=== PATIENT | female | born 1970 | race Caucasian/White ===

== ENCOUNTER → 2017-11-10 | Outpatient (CLI) | payer BC, OTHER | LOC: M LRY 10:02 | DX: R05 Cough (principal) | CPT/HCPCS: 71020 ==

== ENCOUNTER → 2018-06-06 | Outpatient (CLI) | payer OTHER, BC ==
[~2018-06-06] MED LIST: GASTROGRAFIN SOLUTION 30ML (Q9963) As Ordered; ISOVUE-370 76% 100ML VIAL (Q9967) As Ordered
== END ==
LOC: M RAD 14:21
DX: M89.9 Disorder of bone, unspecified (principal); K80.00 Calculus of gallbladder with acute cholecystitis without obstruction
CPT/HCPCS: Q9963

== ENCOUNTER → 2018-07-01 | Outpatient (CLI) | payer BC, OTHER ==
[~2018-07-01] MED LIST changes: -GASTROGRAFIN SOLUTION 30ML (Q9963) As Ordered; -ISOVUE-370 76% 100ML VIAL (Q9967) As Ordered; +PROHANCE 279.3MG/ML 15ML VIAL (A9576) As Ordered; +PROHANCE 279.3MG/ML 5ML VIAL (A9576) As Ordered
== END ==
LOC: M RAD 14:38
DX: K80.20 Calculus of gallbladder without cholecystitis without obstruction (principal); K86.1 Other chronic pancreatitis
CPT/HCPCS: A9576

== ENCOUNTER 2018-08-16 07:21 | Day surgery (SDC) | payer BC, OTHER ==
[~2018-08-16 07:21] MED LIST changes: +BUPIVACAINE HCL 0.25% 30 ML VIAL As Ordered; -PROHANCE 279.3MG/ML 15ML VIAL (A9576) As Ordered; -PROHANCE 279.3MG/ML 5ML VIAL (A9576) As Ordered
[2018-08-16 08:03] LABS: BEDSIDE GLUCOSE 113 MG/DL (70-105)
[2018-08-16] MEDS ORDERED: ONDANSETRON 4MG/2ML VIAL (J2405) As Ordered (08:09)
[2018-08-16] MEDS ORDERED: LIDOCAINE 2% INJ 100 MG/5 ML SDV (FOR ANES.) As Ordered (08:09)
[2018-08-16] MEDS ORDERED: GLYCOPYRROLATE INJ 0.2 MG/ML 2 ML VIAL As Ordered (08:09)
[2018-08-16] MEDS ORDERED: dexameTHASONE 4 MG/ML 1ML VIAL (J1100) As Ordered (08:09)
[2018-08-16] MEDS ORDERED: NEOSTIGMINE 10 MG/10 ML VIAL (J2710) As Ordered (08:09)
[2018-08-16] MEDS ORDERED: ROCURONIUM BROMIDE 50 MG/5 ML VIAL As Ordered (08:09)
[2018-08-16] MEDS ORDERED: PROPOFOL 200 MG/20 ML VIAL As Ordered (08:09)
[2018-08-16] MEDS ORDERED: KETOROLAC 60 MG/2 ML VIAL (J1885) As Ordered (08:09)
[2018-08-16] MEDS ORDERED: fentaNYL 100 MCG/2 ML INJECTION (J3010) As Ordered (08:10)
[2018-08-16] MEDS ORDERED: MIDAZOLAM INJ 2 MG/2 ML VIAL (J2250) As Ordered (08:11)
[2018-08-16] MEDS: LR 1,000 ML IV (08:19)
[2018-08-16] MEDS ORDERED: SCOPOLAMINE 1MG TRANSDERMAL PATCH As Ordered (09:12)
[2018-08-16] MEDS: SCOPOLAMINE 1MG TRANSDERMAL PATCH TOP (09:13)
[2018-08-16] MEDS: AMPICILLIN SOD/SULBACTAM SOD 3 GM in D5W MINI-BAG PLUS 100 ML IV (09:19)
[2018-08-16] MEDS ORDERED: PHENYLephrine HCL 500 MCG/5 ML (100MCG/ML) SYRINGE (J2370) As Ordered (10:06)
[2018-08-16] MEDS ORDERED: SUGAMMADEX SODIUM 500 MG/5 ML VIAL (BRIDION) As Ordered (10:27)
[2018-08-16] MEDS: LIDOCAINE 1% SDV INJ 30 ML VIAL As Ordered (10:30)
[2018-08-16] MEDS ORDERED: MORPHINE 10 MG/ML 1ML VIAL (J2270) IV (11:00)
[2018-08-16] MEDS ORDERED: NORCO, ANEXSIA 5/325MG TABLET (HYDROcodone/ACETAMINOPHEN) PO (11:00)
[2018-08-16] MEDS ORDERED: ONDANSETRON 4MG/2ML VIAL (J2405) IV ×2 (11:00)
[2018-08-16] MEDS ORDERED: METOCLOPRAMIDE INJ 10MG/2ML VIAL (J2765) IV (11:00)
[2018-08-16] MEDS ORDERED: fentaNYL 100 MCG/2 ML INJECTION (J3010) IV (11:00)
[2018-08-16] MEDS ORDERED: PERCOCET 5MG/325MG TAB PO (11:00)
[2018-08-16] MEDS ORDERED: LR 1,000 ML IV (11:00)
[2018-08-16] MEDS ORDERED: KETOROLAC 30 MG/ML VIAL (J1885) IV (14:00)
== END 2018-08-16 12:15 | disposition home or self-care (01) ==
LOC: M SDC 07:21
DX: K80.20 Calculus of gallbladder without cholecystitis without obstruction (principal); K66.0 Peritoneal adhesions (postprocedural) (postinfection); K86.0 Alcohol-induced chronic pancreatitis; K25.9 Gastric ulcer, unspecified as acute or chronic, without hemorrhage or perforation; K74.60 Unspecified cirrhosis of liver; I10 Essential (primary) hypertension; E11.9 Type 2 diabetes mellitus without complications; K50.90 Crohn's disease, unspecified, without complications; K21.9 Gastro-esophageal reflux disease without esophagitis; Z79.899 Other long term (current) drug therapy; Z79.4 Long term (current) use of insulin; Z85.828 Personal history of other malignant neoplasm of skin; Z85.850 Personal history of malignant neoplasm of thyroid; Z90.710 Acquired absence of both cervix and uterus; Z96.612 Presence of left artificial shoulder joint
CPT/HCPCS: 49320

== ENCOUNTER → 2018-10-23 | Outpatient (CLI) | payer BC, OTHER | LOC: M WHC 07:49 | DX: M85.871 Other specified disorders of bone density and structure, right ankle and foot (principal) | CPT/HCPCS: 77080 ==

== ENCOUNTER → 2018-12-20 | Outpatient (REF) | payer OTHER ==
[~2018-12-20] MED LIST changes: +ACET1TAB55 PO; +ACET65TA OR; +BACT2CRE EXT; -BUPIVACAINE HCL 0.25% 30 ML VIAL As Ordered; +CHLO25TA PO; +GLUC1000 OR; +IBUP40TA PO; +INSULANT SC; +LEVO175T2 PO; +LEVO25TA5 PO; +LOSA100T5 PO; +LOSA50TA88 PO; +MAGN250T OR; +METF10004 PO; +MONT10TA2 PO; +MULTIVIT PO; +OMEP20CA3 PO; +PERC5TAB8 OR; +PERC7.5T8 OR; +PRIL20CA OR; +ROCALTROL PO; +SYNT100T OR; +SYNT100T PO; +TUMS500C OR; +VITAMIN D50000 UNT OR; +VITMTA PO
[2018-12-24 01:34] LABS: ANTINUCLEAR ANTIBODIES DIRECT Negative (Negative); Lyme Disease IgG/IgM Antibodie <0.91 ISR (0.00-0.90); Lyme Disease IgM Ab Quantitati <0.80 index (0.00-0.79)
== END ==
LOC: M LABDRAW1 11:06
PROVIDERS: ATTEND Physician Assistant Surgical
DX: M19.071 Primary osteoarthritis, right ankle and foot (principal)

== ENCOUNTER 2020-08-26 22:23 | Inpatient (IN) | payer BC, OTHER ==
[~2020-08-26] VITALS: Ht 172.7 cm; Wt 97.1 kg
[~2020-08-26 22:23] MED LIST changes: -MONT10TA2 PO; +MONT10TA4 PO; +OMEP1CAP73 PO; -OMEP20CA3 PO
[2020-08-26] MEDS ORDERED: METO1TAB7 PO (22:36)
[2020-08-27] VITALS (22 sets, daily range): BP systolic 103–138; BP diastolic 56–73
[2020-08-27] MEDS ORDERED: NS 1,000 ML IV ONE (01:30)
[2020-08-27] MEDS ORDERED: COMBIVENT RESPIMAT 100-20MCG INHALER 4GM INH ONE (01:30)
[2020-08-27 02:14] LABS: BASO # 0.1 10^3/uL (0.0-0.2); BASO % 0.6 % (0.0-1.0); EOS % 0.1 % (0.0-3.0); HEMATOCRIT 28.9 % (36.0-47.0); HEMOGLOBIN 9.3 g/dl (12.0-15.5); LYMPH # 1.1 10^3/uL (1.5-5.0); MEAN CORPUSCULAR HEMOGLOBIN 29.4 pg (27.0-33.0); MEAN CORPUSCULAR HGB CONC 32.2 g/dl (32.0-36.5); MEAN CORPUSCULAR VOLUME 91.5 fl (80.0-96.0); MONO # 0.7 10^3/uL (0.0-0.8); MONO % 5.3 % (0.0-5.0); PLATELET COUNT, AUTOMATED 334 10^3/uL (150-450); RED BLOOD COUNT 3.16 10^6/uL (4.00-5.40); WHITE BLOOD COUNT 12.5 10^3/uL (4.0-10.0)
[2020-08-27 02:17] LABS: VENOUS BASE EXCESS -29.3 (-2.0-2.0); VENOUS HCO3 3.1 MEQ/L (23.0-27.0); VENOUS O2 SATURATION 96.7 % (60.0-80.0); VENOUS PARTIAL PRESSURE CO2 18.1 mmHg (38.0-50.0); VENOUS PARTIAL PRESSURE O2 124.4 mmHg (30.0-50.0); VENOUS PH 6.845 UNITS (7.330-7.430); VENOUS STANDARD HCO3 4.2 MEQ/L; VENOUS TOTAL CO2 3.6 MEQ/L (24.0-28.0)
[2020-08-27 02:56] LABS: ALBUMIN 3.4 GM/DL (3.2-5.2); ALT/SGPT 17 U/L (12-78); BILIRUBIN,DIRECT 0.2 MG/DL (0.0-0.2); BILIRUBIN,TOTAL 0.3 MG/DL (0.2-1.0); BLOOD UREA NITROGEN 124 MG/DL (7-18); CALCIUM LEVEL 6.7 MG/DL (8.5-10.1); CARBON DIOXIDE LEVEL 5 MEQ/L (21-32); CHLORIDE LEVEL 99 MEQ/L (98-107); CK-MB VALUE MASS 4.9 NG/ML (<3.6); CPK CREATINE PHOSPHOKINASE 134 U/L (26-192); GLOMERULAR FILTRATION RATE 3.1 (>51); GLUCOSE, FASTING 141 MG/DL (70-100); MB/CK RELATIVE INDEX 3.66 (< OR =4); NT-PRO BNP 6803 PG/ML (<125); POTASSIUM SERUM 5.5 MEQ/L (3.5-5.1); SODIUM LEVEL 132 MEQ/L (136-145); TROPONIN I < 0.02 NG/ML (< 0.10)
[2020-08-27] MEDS ORDERED: NS 2,730 ML in IV 1 EA IV ONE (03:00)
--- NOTE | 2020-08-27 03:11 | REPVR ---
PROCEDURE INFORMATION: Exam: XR Chest, 1 View Exam date and time: 08/27/2020 2:53 AM Age: 50 years old Clinical indication: Other: Dyspnea/cough; Additional info: Dyspnea/cough, do not wait for covid TECHNIQUE: Imaging protocol: XR of the chest Views: 1 view. COMPARISON: WI CHEST 2 VIEW 11/10/2017 10:09 AM FINDINGS: Lungs: There is decreased inflation of the lungs. There are no interval infiltrates. Pleural space: Unremarkable. No pleural effusion. No pneumothorax. Heart/Mediastinum: The heart and mediastinum are unchanged. Bones/joints: Unremarkable. A prosthetic left shoulder is again noted. IMPRESSION: Essentially stable poor inspiratory chest since 11/10/2017. Electronically signed by: Gamal Madrigal On 08/27/2020 03:10:45 AM
[2020-08-27] MEDS ORDERED: IBUP-1720 PO (04:44)
[2020-08-27] MEDS ORDERED: LOSA100T5 PO (04:44)
[2020-08-27] MEDS ORDERED: PROAAER10 INH (04:44)
[2020-08-27] MEDS ORDERED: METF-877 PO (04:44)
[2020-08-27] MEDS ORDERED: SYNT150T PO (04:44)
[2020-08-27] MEDS ORDERED: SYNT175T2 PO (04:44)
[2020-08-27] MEDS ORDERED: ACET-907 PO (04:44)
[2020-08-27] MEDS ORDERED: DEXTROSE 50% 50 ML SYRINGE IV STA (04:46)
[2020-08-27] MEDS ORDERED: HumuLIN R (REGULAR) INSULIN (NovoLIN R) **100U/ML** PER UNIT IV STA (04:46)
[2020-08-27] MEDS ORDERED: SODIUM BICARBONATE 8.4% INJ 50 ML SYRINGE IV STA ×2 (04:46→10:37)
[2020-08-27] MEDS ORDERED: NS 1,000 ML IV SCH (04:46)
[2020-08-27] MEDS ORDERED: PATIENT COMMENT (04:49)
[2020-08-27] MEDS ORDERED: CALCIUM GLUCONATE 1,000 MG in D5W MINI-BAG PLUS 100 ML IV ONE ×4 (05:00→17:15)
[2020-08-27] MEDS ORDERED: ALBUTEROL 90 MCG/ACT 8GM HFA INHALER INH PRN (05:00)
[2020-08-27] MEDS ORDERED: GLUCAGON INJ 1MG VIAL SC PRN (05:15)
[2020-08-27] MEDS ORDERED: DEXTROSE 50% 50 ML SYRINGE IV PRN (05:15)
[2020-08-27] MEDS ORDERED: GLUCOSE 4GM CHEW TABLET PO PRN (05:15)
--- NOTE | 2020-08-27 05:16 | HPEPDOC ---
General Date of Admission 08/27/20 Date of Service: Aug 27, 2020 Chief Complaint The patient is a 50-year-old female admitted with a reason for visit of SOB. Source: Patient Exam Limitations: No limitations Timing/Duration: Day(s) Severity: Severe Associated Symptoms: Shortness of breath History of Present Illness Patient is 51 years old female with past history of diabetes, hypertension, hypothyroidism presented hospital with nausea, vomiting and diarrhea. Patient stated that around 3 days ago she developed upper respiratory symptoms started as sinusitis, then she developed multiple episodes of diarrhea with nausea and vomiting, unable to keep anything down. She denied any fever, cough with sputum. In ER patient was found to have tachypnea, chest x-ray clear. Blood work perti nent for leukocytosis of 12.5, potassium 5.5, creatinine 13.5, BUN of 124, BNP 6800. Blood gas showed metabolic acidosis with pH of 6.9, bicarbonate 3.1. Home Medications Scheduled Insulin Glargine (Lantus) 1 Units/0.01 Ml Susp, 22 UNITS SC DAILY, (Reported) Levothyroxine Sodium (Synthroid) 150 Mcg Tablet, 150 MCG PO Q2D, (Reported) Levothyroxine Sodium (Synthroid) 175 Mcg Tablet, 175 MCG PO Q2D, (Reported) Losartan/Hydrochlorothiazide (Losartan-Hctz 100-25 mg Tab) 1 Each Tablet, 1 TAB PO DAILY, (Reported) Metformin HCl (Metformin HCl) 1,000 Mg Tablet, 1,000 MG PO BID, (Reported) Metoprolol Succinate (Metoprolol Succinate) 50 Mg Tab.er.24h, 50 MG PO DAILY, (Reported) Multivitamins (Thera M Plus Tablet) 1 Tab Tab, 1 TAB PO DAILY, (Reported) Omeprazole (Omeprazole) 20 Mg Cap, 20 MG PO DAILY, (Reported) Scheduled PRN Acetaminophen (Tylenol) 325 Mg Tablet, 650 MG PO Q4H PRN for HEADACHE OR PAIN, (Reported) Albuterol Sulfate (Proair Hfa) 8.5 Gm Hfa.aer.ad, 2 PUFF INH QID PRN for SHORTNESS OF BREATH, (Reported) Ibuprofen (Ibuprofen) 200 Mg Tablet, 400 MG PO Q6H PRN for HEADACHE OR PAIN, (Reported) Miscellaneous Medications [Patient Comment] , (Reported) PATIENT UNSURE OF WHICH SYNTHROID WAS LAST TAKEN Allergies Coded Allergies: No Known Allergies (Verified , 08/16/18) Past Medical History Medical History Diabetes mellitus type 2 Hypertension GERD Hypothyroidism status post thyroidectomy Seasonal allergies with possibly undiagnosed asthma Surgical History Thyroidectomy in 2012 Appendectomy Left shoulder replacement Right knee ligamentous repair surgery Left knee arthroscopic surgery Family History Her sister diagnosed with breast cancer Social History * Smoker: Denies Alcohol: Denies Drugs: denies A-FIB/CHADSVASC A-FIB History Current/History of A-Fib/PAF?: No Current PO Anticoag Therapy: No Review of Systems Constitutional: Reports: Malaise; Denies: Chills, Fever Eyes: Denies: Pain Skin: Denies: Rash, Lesions Pulmonary: Reports: Dyspnea Cardiovascular: Denies: Chest Pain, Palpitations Gastrointestinal: Reports: Nausea, Vomiting Genitourinary: Denies: Hematuria Hematologic: Denies: Bruising Endocrine: Denies: Polydipsia, Polyphagia Musculoskeletal: Denies: Neck Pain, Back Pain Neurological: Denies: Weakness Psych: Reports: Mood Normal Physical Examination General Exam: Positive: Alert, Cooperative Eye Exam: Positive: PERRLA ENT Exam: Positive: Atraumatic Neck Exam: Positive: Supple, JVD Chest Exam: Positive: Rhonchi Heart Exam: Positive: Tachycardic Telemetry: Positive: Sinus Abdomen Exam: Positive: BS Hyperactive; Negative: Normal bowel sounds Extremity Exam: Negative: Cyanosis Skin Exam: Positive: Nl turgor and temperature Neuro Exam: Positive: Strength at 5/5 X4 ext, Cranial Nerves 3-12 NL Psych Exam: Positive: Mental status NL Vital Signs Vital Signs Date Time Temp Pulse Resp B/P (MAP) Pulse Ox O2 Delivery O2 Flow Rate FiO2 08/27/20 03:38 105 26 100 Room Air 08/27/20 03:21 143/88 (106) 08/26/20 22:24 97.6 Laboratory Data Labs 24H Laboratory Tests 2 08/27/20 02:06: Immature Granulocyte % (Auto) 5.0H, Neutrophils (%) (Auto) 80.0H, Lymphocytes (%) (Auto) 9.0L, Monocytes (%) (Auto) 5.3H, Eosinophils (%) (Auto) 0.1, Basophils (%) (Auto) 0.6, Neutrophils # (Auto) 10.0H, Lymphocytes # (Auto) 1.1L, Monocytes # (Auto) 0.7, Eosinophils # (Auto) 0.0, Basophils # (Auto) 0.1, Nucleated Red Blood Cells % (auto) 0.2H, Blood Gas Bicarbonate Standard 4.2, Venous Blood pH 6.845L, Venous Blood Partial Pressure CO2 18.1L, Venous Blood Partial Pressure O2 124.4H, Venous Blood Total Carbon Dioxide 3.6L, Venous Blood HCO3 3.1L, Venous Blood Oxygen Saturation 96.7H, Venous Blood Base Excess - 29.3L, Anion Gap 28H, Glomerular Filtration Rate 3.1L, Lactic Acid Level 1.9, Calcium Level 6.7L, Total Bilirubin 0.3, Direct Bilirubin 0.2, Aspartate Amino Transf (AST/SGOT) 26, Alanine Aminotransferase (ALT/SGPT) 17, Alkaline Phosphatase 110, Total Creatine Kinase 134, Creatine Kinase MB 4.9H, Creatine Kinase MB Relative Index 3.66, Troponin I < 0.02, KC-Oxy-E-Type Natriuretic Peptide 6803H, Total Protein 8.0, Albumin 3.4, Albumin/Globulin Ratio 0.7L 08/27/20 03:31: POC pH (Misc Panel) 6.953*L, POC Base Excess (Misc Panel) -29.0L, POC Saturated Percent O2 (Misc) 97, POC pO2 (Misc Panel) 142.0H, POC pCO2 (Misc Panel) 12.8*L, POC HCO3 (Misc Panel) 2.8L, POC Total CO2 (Misc Panel) < 5.0L CBC/BMP Laboratory Tests 08/27/20 02:06 Microbiology Microbiology 08/27/20 Respiratory Virus Panel (PCR) (MIRANDA) - Final, Complete 08/27/20 Blood Culture, Received Pending Assessment/Plan Patient is 51 years old female with past history of diabetes, hypertension, hypothyroidism presented hospital with nausea, vomiting and diarrhea. Patient stated that around 3 days ago she developed upper respiratory symptoms started as sinusitis, then she developed multiple episodes of diarrhea with nausea and vomiting, unable to keep anything down. She denied any fever, cough with sputum. In ER patient was found to have tachypnea, chest x-ray clear. Blood work pertinent for leukocytosis of 12.5, potassium 5.5, creatinine 13.5, BUN of 124, BNP 6800. Blood gas showed metabolic acidosis with pH of 6.9, bicarbonate 3.1. Problems (1) Metabolic acidosis Status: Acute Problem Text: Secondary to kidney failure Combined NAGMA and HAGMA Bicarbonate Continue to monitor ABG BMP every 4 hours IV hydration (2) Acute renal failure Status: Acute Problem Text: Most likely secondary to severe dehydration due to vomiting and diarrhea Continue to monitor IV fluid Appreciate/agree with associate creative director consult (3) Hyperkalemia Status: Acute Problem Text: Calcium gluconate IV insulin and D50 Continue to monitor BMP (4) Diabetes mellitus type 2 in obese Status: Chronic Problem Text: Diabetes diet Insulin sliding scale Detemir twice a day (5) Hypertension Status: Chronic Problem Text: Continue home cardioprotective medication Plan / VTE VTE Prophylaxis Ordered?: Yes IVONNE CASTLE DO Aug 27, 2020 05:16
[2020-08-27 05:34] LABS: ACETONE/KETONE > 46.00 MG/DL (<2.81)
[2020-08-27] MEDS ORDERED: CALCIUM GLUCONATE 1,000MG/10ML VIAL (100MG/ML) (J0610) As Ordered ONE (05:38)
[2020-08-27] MEDS ORDERED: DEXTROSE 50% 50 ML SYRINGE As Ordered ONE (05:38)
[2020-08-27] MEDS ORDERED: SODIUM BICARBONATE 8.4% INJ 50 ML SYRINGE As Ordered ONE (05:38)
[2020-08-27] MEDS ORDERED: HumuLIN R (REGULAR) INSULIN (NovoLIN R) **100U/ML** PER UNIT As Ordered ONE (05:39)
[2020-08-27 06:13] LABS: ABG BASE EXCESS -25.6 (-2.0-2.0); ABG HCO3 3.6 MEQ/L (22.0-26.0); ABG O2 SATURATION 98.6 % (95.0-99.0); ABG PARTIAL PRESSURE O2 147.6 mmHg (75.0-100.0); ABG STANDARD HCO3 5.6 MEQ/L (22.0-26.0)
[2020-08-27 06:17] LABS: ABG pH (ARTERIAL) 7.002 UNITS (7.350-7.450)
[2020-08-27 06:18] LABS: ABG PARTIAL PRESSURE CO2 14.7 mmHg (35.0-45.0)
[2020-08-27 06:21] LABS: CALCIUM LEVEL 6.2 MG/DL (8.5-10.1); CREATININE FOR GFR 13.2 MG/DL (0.55-1.30); GLOMERULAR FILTRATION RATE 3.2 (>51); POTASSIUM SERUM 5.6 MEQ/L (3.5-5.1)
[2020-08-27] MEDS: ACETAMINOPHEN TAB 650MG DOSE (2X325MG) PO PRN (08:53)
[2020-08-27] MEDS: OMEPRAZOLE 20 MG CAP PO SCH (08:53)
[2020-08-27] MEDS: METOPROLOL SUCC (TopROL XL) 50MG **XL** TAB PO SCH (08:54)
[2020-08-27] MEDS: LEVOTHYROXINE 150MCG TABLET (0.15MG) PO SCH (08:55)
[2020-08-27] MEDS: HumaLOG INSULIN (NovoLOG) PER UNIT SC SCH ×4 (08:55→20:00)
[2020-08-27] MEDS: LEVEMIR (INSULIN DETEMIR) 1 UNITS/0.01ML SC SCH (08:56)
[2020-08-27] MEDS: HEPARIN SOD (PORCINE) 5000UNITS/ML 1ML VIAL/SYRINGE SC SCH ×2 (08:56→20:04)
--- NOTE | 2020-08-27 08:57 | REPVR ---
PROCEDURE INFORMATION: Exam: US Retroperitoneal; Complete; Kidneys and Bladder Exam date and time: 08/27/2020 8:40 AM Age: 50 years old Clinical indication: Condition or disease; Other: Fer TECHNIQUE: Imaging protocol: Real-time ultrasound of the retroperitoneum with image documentation. Complete exam focused on the kidneys and bladder. COMPARISON: CT ABD/PEL W/IV ORAL CONTRAS 06/06/2018 3:52 PM FINDINGS: Right kidney: Right kidney measures 12.3 x 6.3 x 6.3 cm and demonstrates increased parenchymal echogenicity. Mild caliectasis versus hypoechoic medullary pyramids accentuated by the echogenic cortex. No significant hydronephrosis. No calculi or mass. Left kidney: Left kidney measures 10.7 x 5.9 x 6.6 cm and demonstrates increased parenchymal echogenicity. Mild caliectasis versus hypoechoic medullary pyramids accentuated by the echogenic cortex. No significant hydronephrosis. No calculi or mass. Bladder: Urinary bladder is decompressed by a Winslow catheter. IMPRESSION: Bilateral echogenic kidneys, consistent with medical-renal disease. Mild bilateral caliectasis versus hypoechoic medullary pyramids accentuated by the echogenic cortex. No significant hydronephrosis. Electronically signed by: Quentin Hernandez On 08/27/2020 08:57:25 AM
[2020-08-27] MEDS ORDERED: SODIUM BICARBONATE 150 MEQ in STERILE WATER LITER BAG 1,000 ML IV SCH (09:00)
[2020-08-27] MEDS ORDERED: LEVEMIR (INSULIN DETEMIR) 1 UNITS/0.01ML SC SCH (09:00)
[2020-08-27] MEDS ORDERED: ONDANSETRON 4MG/2ML VIAL IV PRN (09:30)
[2020-08-27 10:32] LABS: ABG BASE EXCESS -24.6 (-2.0-2.0); ABG HCO3 4.1 MEQ/L (22.0-26.0); ABG PARTIAL PRESSURE O2 191.7 mmHg (75.0-100.0); ABG STANDARD HCO3 6.2 MEQ/L (22.0-26.0); ABG TOTAL CO2 4.6 MEQ/L (22.0-29.0)
[2020-08-27 10:36] LABS: ABG PARTIAL PRESSURE CO2 15.9 mmHg (35.0-45.0)
[2020-08-27 10:54] LABS: CREATININE FOR GFR 12.4 MG/DL (0.55-1.30); GLOMERULAR FILTRATION RATE 3.4 (>51); POTASSIUM SERUM 4.7 MEQ/L (3.5-5.1)
[2020-08-27 13:26] LABS: CALCIUM LEVEL 5.9 MG/DL (8.5-10.1); CREATININE FOR GFR 11.9 MG/DL (0.55-1.30); GLOMERULAR FILTRATION RATE 3.6 (>51); POTASSIUM SERUM 4.2 MEQ/L (3.5-5.1)
[2020-08-27] MEDS: SODIUM BICARBONATE 150 MEQ in D5W 1,000 ML IV SCH ×3 (13:27→23:30)
[2020-08-27 13:30] LABS: POTASSIUM RANDOM URINE 19.8 MEQ/L; SODIUM,RANDOM URINE 62 MEQ/L
[2020-08-27 13:35] LABS: THYROID STIMULATING HORMONE 0.905 uIU/ML (0.358-3.740)
[2020-08-27] MEDS ORDERED: CALCIUM CHLORIDE 10% 1 GM in D5W 100 ML IV ONE (17:15)
[2020-08-27 17:39] LABS: CALCIUM LEVEL 5.9 MG/DL (8.5-10.1); CREATININE FOR GFR 11.7 MG/DL (0.55-1.30); GLOMERULAR FILTRATION RATE 3.6 (>51); POTASSIUM SERUM 3.6 MEQ/L (3.5-5.1)
[2020-08-27] MEDS ORDERED: KCL 10MEQ/100ML SWI (KRUN) 10 MEQ in IV 1 EA IV ONE ×2 (18:30→22:00)
[2020-08-27 18:59] LABS: PHOSPHORUS LEVEL 10.5 MG/DL (2.5-4.9)
[2020-08-27 21:35] LABS: CALCIUM LEVEL 6.2 MG/DL (8.5-10.1); CREATININE FOR GFR 11.4 MG/DL (0.55-1.30); GLOMERULAR FILTRATION RATE 3.7 (>51); POTASSIUM SERUM 2.8 MEQ/L (3.5-5.1)
[2020-08-27 23:04] LABS: ABG BASE EXCESS -9.3 (-2.0-2.0); ABG HCO3 15.1 MEQ/L (22.0-26.0); ABG O2 SATURATION 97.1 % (95.0-99.0); ABG PARTIAL PRESSURE CO2 26.8 mmHg (35.0-45.0); ABG PARTIAL PRESSURE O2 105.4 mmHg (75.0-100.0); ABG STANDARD HCO3 16.7 MEQ/L (22.0-26.0); ABG TOTAL CO2 15.9 MEQ/L (22.0-29.0); ABG pH (ARTERIAL) 7.369 UNITS (7.350-7.450)
[2020-08-28] VITALS (38 sets, daily range): BP systolic 87–145; BP diastolic 57–98
[2020-08-28 01:30] LABS: CALCIUM LEVEL 6.4 MG/DL (8.5-10.1); CREATININE FOR GFR 11.3 MG/DL (0.55-1.30); GLOMERULAR FILTRATION RATE 3.8 (>51); POTASSIUM SERUM 2.7 MEQ/L (3.5-5.1)
[2020-08-28] MEDS: KCL 10MEQ/100ML SWI (KRUN) 10 MEQ in IV 1 EA IV SCH ×4 (02:23→05:58)
[2020-08-28] MEDS ORDERED: CALCIUM GLUCONATE 1,000 MG in D5W MINI-BAG PLUS 100 ML IV ONE ×3 (03:00→07:00)
[2020-08-28 03:21] LABS: ALBUMIN 2.2 GM/DL (3.2-5.2); MAGNESIUM LEVEL 0.6 MG/DL (1.8-2.4)
[2020-08-28] MEDS: MAG SULF 1GM/100ML (MAG RUN) 1 GM in IV 1 EA IV SCH ×4 (03:56→07:03)
[2020-08-28] MEDS: ACETAMINOPHEN TAB 650MG DOSE (2X325MG) PO PRN ×2 (03:57→20:38)
[2020-08-28 05:03] LABS: MEAN CORPUSCULAR HEMOGLOBIN 29.9 pg (27.0-33.0); PLATELET COUNT, AUTOMATED 183 10^3/uL (150-450); RED BLOOD COUNT 1.94 10^6/uL (4.00-5.40); WHITE BLOOD COUNT 6.3 10^3/uL (4.0-10.0)
[2020-08-28 05:04] LABS: HEMOGLOBIN 5.8 g/dl (12.0-15.5)
[2020-08-28 05:06] LABS: HEMATOCRIT 16.1 % (36.0-47.0)
[2020-08-28] MEDS: LEVOTHYROXINE 25MCG TABLET (0.025MG) PO SCH (05:58)
[2020-08-28] MEDS: LEVOTHYROXINE 150MCG TABLET (0.15MG) PO SCH (05:58)
[2020-08-28] MEDS ORDERED: POTASSIUM CHLORIDE 10 MEQ SR TABLET PO ONE (06:00)
[2020-08-28 06:05] LABS: BASO % 0.3 % (0.0-1.0); EOS # 0.1 10^3/uL (0.0-0.5); LYMPH # 0.9 10^3/uL (1.5-5.0); LYMPH % 15.4 % (24.0-44.0); MONO # 0.5 10^3/uL (0.0-0.8); MONO % 8.8 % (0.0-5.0); NEUTROPHILS # 4.5 10^3/uL (1.5-8.5); NEUTROPHILS % 73.5 % (36.0-66.0)
[2020-08-28 06:30] LABS: ALBUMIN 2.1 GM/DL (3.2-5.2); BILIRUBIN,TOTAL 0.2 MG/DL (0.2-1.0); CALCIUM LEVEL 5.8 MG/DL (8.5-10.1); CREATININE FOR GFR 11.1 MG/DL (0.55-1.30); GLOMERULAR FILTRATION RATE 3.9 (>51); PHOSPHORUS LEVEL 7.4 MG/DL (2.5-4.9); POTASSIUM SERUM 2.9 MEQ/L (3.5-5.1); TOTAL PROTEIN 4.9 GM/DL (6.4-8.2)
[2020-08-28 06:51] LABS: ABG BASE EXCESS -6.9 (-2.0-2.0); ABG HCO3 17.1 MEQ/L (22.0-26.0); ABG O2 SATURATION 94.8 % (95.0-99.0); ABG PARTIAL PRESSURE CO2 27.9 mmHg (35.0-45.0); ABG PARTIAL PRESSURE O2 83.5 mmHg (75.0-100.0); ABG STANDARD HCO3 18.6 MEQ/L (22.0-26.0); ABG pH (ARTERIAL) 7.406 UNITS (7.350-7.450)
[2020-08-28] MEDS: SODIUM BICARBONATE 150 MEQ in D5W 1,000 ML IV SCH ×2 (07:03→13:47)
--- NOTE | 2020-08-28 07:35 | ECGEPIP ---
[facility] - ED Test Date: 2020-08-27 Pat Name: SHARON BRANDON Department: Room: [place] [address] Gender: Female Transfer Table Operator: marlena hanson : 1970 Requested By: CHRIS Camacho Order Number: [id number] Reading MD: Remi Lobo Measurements Intervals [place] Rate: 100 P: 23 OK: 151 QRS: 18 QRSD: 96 T: -6 QT: 365 QTc: 472 Interpretive Statements SINUS TACHYCARDIA NONSPECIFIC T-WAVE ABNORMALITY Baseline artifact Comparison tracing not on file Electronically Signed on 08-28-2020 7:35:26 EDT by Remi Lobo
[2020-08-28 08:28] LABS: IONIZED CALCIUM 3.3 MG/DL (4.5-5.3)
[2020-08-28 08:35] LABS: MEAN CORPUSCULAR HEMOGLOBIN 29.5 pg (27.0-33.0); MEAN CORPUSCULAR HGB CONC 34.7 g/dl (32.0-36.5); MEAN CORPUSCULAR VOLUME 85.2 fl (80.0-96.0); PLATELET COUNT, AUTOMATED 185 10^3/uL (150-450); RED BLOOD COUNT 2.37 10^6/uL (4.00-5.40); WHITE BLOOD COUNT 6.9 10^3/uL (4.0-10.0)
[2020-08-28 08:37] LABS: HEMATOCRIT 20.2 % (36.0-47.0)
[2020-08-28 09:12] LABS: BLOOD UREA NITROGEN 100 MG/DL (7-18); CALCIUM LEVEL 6.6 MG/DL (8.5-10.1); CARBON DIOXIDE LEVEL 18 MEQ/L (21-32); CHLORIDE LEVEL 94 MEQ/L (98-107); GLUCOSE, FASTING 260 MG/DL (70-100); MAGNESIUM LEVEL 1.9 MG/DL (1.8-2.4); POTASSIUM SERUM 2.9 MEQ/L (3.5-5.1); SODIUM LEVEL 132 MEQ/L (136-145)
[2020-08-28] MEDS: LEVEMIR (INSULIN DETEMIR) 1 UNITS/0.01ML SC SCH (10:14)
[2020-08-28] MEDS: HumaLOG INSULIN (NovoLOG) PER UNIT SC SCH ×4 (10:15→21:00)
[2020-08-28] MEDS: OMEPRAZOLE 20 MG CAP PO SCH (10:15)
[2020-08-28] MEDS: METOPROLOL SUCC (TopROL XL) 50MG **XL** TAB PO SCH (10:16)
--- NOTE | 2020-08-28 10:43 | REPVR ---
PROCEDURE INFORMATION: Exam: XR Chest, 1 View Exam date and time: 08/28/2020 10:24 AM Age: 50 years old Clinical indication: Device placement; Other: Dialysis catheter; Additional info: Line placement TECHNIQUE: Imaging protocol: XR of the chest Views: 1 view. COMPARISON: CR PORTABLE CHEST X-RAY 08/27/2020 2:35 AM FINDINGS: Tubes, catheters and devices: A right IJ line has been placed with its tip in the region of the right atrium, approximately 2 cm beyond the expected level of the cavoatrial junction. Lungs: There is moderate new diffuse bilateral interstitial prominence, suggesting edema with bibasilar atelectasis and possibly infiltrate. Pleural space: There are new moderate right and small left pleural effusions. No pneumothorax is identified. Heart/Mediastinum: The cardiomediastinal silhouette is stable in appearance allowing for differences in positioning. Bones/joints: Unremarkable. IMPRESSION: 1. Right IJ line placed since 1 day prior, tip approximately 2 cm beyond expected level of cavoatrial junction in the region of the right atrium. 2. New moderate right and small left pleural effusions, along with moderate new bilateral interstitial prominence suggesting edema, and bibasilar atelectasis and possibly infiltrate. Electronically signed by: John Samuels On 08/28/2020 10:42:12 AM
[2020-08-28] MEDS: HEPARIN SOD (PORCINE) 5000UNITS/ML 1ML VIAL/SYRINGE SC SCH ×2 (10:45→20:38)
[2020-08-28] MEDS ORDERED: KCL 20MEQ IN 100ML SWI (KRUN) 20 MEQ in IV 1 EA IV ONE ×8 (11:00→21:00)
--- NOTE | 2020-08-28 11:00 | IPNPDOC ---
Text Note Date of Service The patient was seen on 08/27/20. NOTE Subjective: Does still have some nausea but no more vomiting, no idarrhea, l aying comfortably in bed in no distress. Physical exam Vitals as below General Exam: Patient laying down in bed in no discomfort. Alert and oriented Eye Exam: PERRLA ENT Exam: Normocephalic Atraumatic. Moist mucous membranes. Anicteric eyes Neck Exam: Supple, JVD present Chest Exam: Bilateral Rhonchi and wheezing, good air entry Heart Exam: Normal S1 and S2 , regular rhythm and rate, no rub, murmur or gallop Telemetry: Positive: Sinus Abdomen Exam: Soft, mild generalized tenderness in all the quadrants , BS Hyperactive . No rebound or rigidity Extremity Exam: No Cyanosis , no edema Skin Exam: Nl turgor and temperature Neuro Exam: Strength at 5/5 X4 ext, Cranial Nerves 3-12 NL, no flank Psych Exam: Mental status NL, alert, oriented 3 Patient is 51 years old female with past history of diabetes, hypertension, hypothyroidism presented hospital with nausea, vomiting and diarrhea. Patient stated that around 7 days ago she developed upper respiratory symptoms started as sinusitis, was not eating well as had poor appetite. She then she developed multiple episodes of vomiting 3 days ago associated with nausea and some diarrhea, unable to keep anything down. SHe was ound to be in FESTUS , with severe metabolic acidosis and elevated ketones and elevated lactate. Acute renal failure with severe high anion gap and non anion gap metabolic acidosis and hyperkalemia No Renal Obstruction in US, increased echogenicity suggesting medical renal disease Possibly prerenal from vomiting and diarrhea on the background of lisinopril and hydrochlorothiazide and ibuprofen May have developed ATN also will have to see how fast the renal recovery occurs. On bicarbonate. gtt Nephrology consult appreciated Monitor intake and output Metabolic acidosis Combined NAGMA and HAGMA Bicarbonate Continue to monitor ABG BMP every 4 hours IV hydration Elevated ketones possibly due to starvation However may have DKA also though now sugar not elevated as has not been eating for 3 to 4 days. Diabetes mellitus type 2 in obese Levemir, lispro. Hypertension continue metoprolol with hold parameters. Hypothyroidism. Status post thyroidectomy. Synthroid GERD PPI VS,Fishbone, I+O VS, Fishbone, I+O Laboratory Tests 08/27/20 02:06 08/27/20 05:44 Vital Signs Date Time Temp Pulse Resp B/P (MAP) Pulse Ox O2 Delivery O2 Flow Rate FiO2 08/27/20 10:00 115 124/63 (83) 100 08/27/20 09:45 38 08/27/20 07:30 Room Air 08/26/20 22:24 97.6 JULIA KEY MD Aug 27, 2020 11:06
[2020-08-28 11:03] LABS: ETHYL ALCOHOL (ETHANOL) < 0.003 % (0.000-0.010)
--- NOTE | 2020-08-28 11:10 | IPNPDOC ---
Text Note Date of Service The patient was seen on 08/28/20. NOTE Subjective: Feels better than yesterday. Denies any nausea or vomiting today, No diarrhea, small incontinent bowel movement this am. No abdominal pain, no SOB. Minimal urine output in the last 24 hours. Physical exam Vitals as below General Exam: Patient laying down in bed in no discomfort. Alert and oriented Eye Exam: PERRLA ENT Exam: Normocephalic Atraumatic. Moist mucous membranes. Anicteric eyes Neck Exam: Supple, JVD present Chest Exam: Bibasal crackles extending up to the mid back of chest, decreased air entry at the bases. Heart Exam: Normal S1 and S2 , regular rhythm and rate, no rub, murmur or gallop Telemetry: Sinus Abdomen Exam: Soft, non tender,No rebound or rigidity, bowel sounds normal. Extremity Exam: No Cyanosis , no edema Skin Exam: Nl turgor and temperature Neuro Exam: Strength at 5/5 X4 ext, Cranial Nerves 3-12 NL, no focal neurodefi cits. Psych Exam: Mental status NL, alert, oriented 3 Patient is 51 years old female with past history of diabetes, hypertension, hypothyroidism presented hospital with nausea, vomiting and diarrhea. Patient stated that around 7 days ago she developed upper respiratory symptoms started as sinusitis, was not eating well as had poor appetite. She then she developed multiple episodes of vomiting 3 days ago associated with nausea and some diarrhea, unable to keep anything down. SHe was ound to be in FESTUS , with severe metabolic acidosis and elevated ketones and elevated lactate. Acute renal failure with severe high anion gap and non anion gap metabolic acidosis and hyperkalemia prerenal/ ATN bicarb gtt stopped, ABG improved, though anion gap present and bicarb still low. No output, getting fluid overloaded Will probably be started on CVVHD today. Severe electrolyte abnormalities Hypokalemia, hypomagnesemia, hypocalcemia All are being replaced IV Anemia Drop in HH without any bleeding probably dilutional received 1 unit of PRBC. Metabolic acidosis Combined NAGMA and HAGMA BMP every 4 hours Elevated ketones possibly due to starvation However may have DKA also though on admission sugars not elevated as has not been eating for 3 to 4 days. Diabetes mellitus type 2 in obese Levemir, lispro. Hypertension continue metoprolol with hold parameters. Hypothyroidism. Status post thyroidectomy. Synthroid GERD PPI VS,Fishbone, I+O VS, Fishbone, I+O Laboratory Tests 08/27/20 12:34 08/27/20 16:45 08/27/20 20:49 08/28/20 00:50 08/28/20 04:54 08/28/20 08:17 Vital Signs Date Time Temp Pulse Resp B/P (MAP) Pulse Ox O2 Delivery O2 Flow Rate FiO2 08/28/20 10:16 94 143/77 08/28/20 08:30 98.7 16 95 Room Air I&O- Last 24 Hours up to 6 AM 08/28/20 06:00 Intake Total 6520 ml Output Total 340 ml Balance 6180 ml JULIA KEY MD Aug 28, 2020 11:10
[2020-08-28 11:15] LABS: PARTIAL THROMBOPLASTIN TIME 26.4 SECONDS (24.2-38.5)
[2020-08-28 11:28] LABS: INR 1.35
[2020-08-28] MEDS ORDERED: SODIUM CHLORIDE 0.9% INJ 10 ML SYR IV PRN (12:45)
[2020-08-28 18:14] LABS: IONIZED CALCIUM 3.5 MG/DL (4.5-5.3)
[2020-08-28 18:15] LABS: HEMOGLOBIN 7.2 g/dl (12.0-15.5); MEAN CORPUSCULAR HEMOGLOBIN 29.6 pg (27.0-33.0); MEAN CORPUSCULAR HGB CONC 35.1 g/dl (32.0-36.5); MEAN CORPUSCULAR VOLUME 84.4 fl (80.0-96.0); PLATELET COUNT, AUTOMATED 197 10^3/uL (150-450); RED BLOOD COUNT 2.43 10^6/uL (4.00-5.40); WHITE BLOOD COUNT 9.6 10^3/uL (4.0-10.0)
[2020-08-28 18:17] LABS: HEMATOCRIT 20.5 % (36.0-47.0)
[2020-08-28 18:25] LABS: INR 1.43; PROTHROMBIN TIME 17.7 SECONDS (12.5-14.3)
[2020-08-28 18:55] LABS: CALCIUM LEVEL 6.3 MG/DL (8.5-10.1); CREATININE FOR GFR 8.32 MG/DL (0.55-1.30); GLOMERULAR FILTRATION RATE 5.4 (>51); MAGNESIUM LEVEL 1.7 MG/DL (1.8-2.4); POTASSIUM SERUM 3.4 MEQ/L (3.5-5.1)
[2020-08-28] MEDS ORDERED: MAG SULF 1GM/100ML (MAG RUN) 1 GM in IV 1 EA IV ONE (20:00)
[2020-08-28] MEDS ORDERED: CALCIUM GLUCONATE 1,000 MG in NS 100 ML IV ONE ×2 (22:00→23:00)
[2020-08-28] MEDS ORDERED: CALCIUM GLUCONATE 1,000MG/10ML VIAL (100MG/ML) (J0610) As Ordered ONE (22:01)
[2020-08-29] VITALS (21 sets, daily range): BP systolic 130–165; BP diastolic 72–95
[2020-08-29 01:01] LABS: IONIZED CALCIUM 4.1 MG/DL (4.5-5.3)
[2020-08-29 01:26] LABS: CALCIUM LEVEL 7.5 MG/DL (8.5-10.1); CREATININE FOR GFR 5.63 MG/DL (0.55-1.30); GLOMERULAR FILTRATION RATE 8.4 (>51); PHOSPHORUS LEVEL 3.4 MG/DL (2.5-4.9); POTASSIUM SERUM 3.7 MEQ/L (3.5-5.1)
[2020-08-29] MEDS ORDERED: KCL 20MEQ IN 100ML SWI (KRUN) 20 MEQ in IV 1 EA IV ONE ×2 (02:00)
[2020-08-29] MEDS: CALCIUM GLUCONATE 1,000 MG in NS 100 ML IV SCH ×4 (03:35→10:33)
[2020-08-29] MEDS: LEVOTHYROXINE 150MCG TABLET (0.15MG) PO SCH (05:52)
[2020-08-29 06:08] LABS: IONIZED CALCIUM 4.3 MG/DL (4.5-5.3)
[2020-08-29 06:31] LABS: CALCIUM LEVEL 8.1 MG/DL (8.5-10.1); CREATININE FOR GFR 4.5 MG/DL (0.55-1.30); GLOMERULAR FILTRATION RATE 10.9 (>51); PHOSPHORUS LEVEL 3.2 MG/DL (2.5-4.9); POTASSIUM SERUM 4.4 MEQ/L (3.5-5.1)
[2020-08-29 06:52] LABS: HEMATOCRIT 24.1 % (36.0-47.0); HEMOGLOBIN 8.4 g/dl (12.0-15.5); MEAN CORPUSCULAR HEMOGLOBIN 29.5 pg (27.0-33.0); MEAN CORPUSCULAR HGB CONC 34.9 g/dl (32.0-36.5); MEAN CORPUSCULAR VOLUME 84.6 fl (80.0-96.0); PLATELET COUNT, AUTOMATED 179 10^3/uL (150-450); RED BLOOD COUNT 2.85 10^6/uL (4.00-5.40); WHITE BLOOD COUNT 9.1 10^3/uL (4.0-10.0)
[2020-08-29 07:01] LABS: INR 1.36; PARTIAL THROMBOPLASTIN TIME 42.3 SECONDS (24.2-38.5); PROTHROMBIN TIME 17.1 SECONDS (12.5-14.3)
[2020-08-29] MEDS: HumaLOG INSULIN (NovoLOG) PER UNIT SC SCH ×4 (07:30→20:31)
[2020-08-29] MEDS: METOPROLOL SUCC (TopROL XL) 50MG **XL** TAB PO SCH (08:21)
[2020-08-29] MEDS: OMEPRAZOLE 20 MG CAP PO SCH (08:21)
[2020-08-29] MEDS: HEPARIN SOD (PORCINE) 5000UNITS/ML 1ML VIAL/SYRINGE SC SCH ×2 (08:22→20:30)
[2020-08-29] MEDS: LEVEMIR (INSULIN DETEMIR) 1 UNITS/0.01ML SC SCH (08:23)
--- NOTE | 2020-08-29 09:41 | IPNPDOC ---
Text Note Date of Service The patient was seen on 08/29/20. NOTE Subjective: Feels better than yesterday. Denies any nausea or vomiting today, No diarrhea. No abdominal pain, no SOB. As per nurseds had desaturated during sleep requiring 2 L of oxygen. Making about 30 cc/ hour in the last 4 hours. Physical exam Vitals as below General Exam: Patient laying down in bed in no discomfort. Alert and oriented Eye Exam: PERRLA ENT Exam: Normocephalic Atraumatic. Moist mucous membranes. Anicteric eyes Neck Exam: Supple, JVD present Chest Exam: clear to auscultation. Heart Exam: Normal S1 and S2 , regular rhythm and rate, no rub, murmur or gallop Telemetry: Sinus Abdomen Exam: Soft, non tender,No rebound or rigidity, bowel sounds normal. Extremity Exam: No Cyanosis , no edema Skin Exam: Nl turgor and temperature Neuro Exam: Strength at 5/5 X4 ext, Cranial Nerves 3-12 NL, no focal neurodeficits. Psych Exam: Mental status NL, alert, oriented 3 Patient is 51 years old female with past history of diabetes, hypertension, hyp othyroidism presented hospital with nausea, vomiting and diarrhea. Patient stated that around 7 days ago she developed upper respiratory symptoms started as sinusitis, was not eating well as had poor appetite. She then she developed multiple episodes of vomiting 3 days ago associated with nausea and some diarrhea, unable to keep anything down. SHe was ound to be in FESTUS , with severe metabolic acidosis and elevated ketones and elevated lactate. Acute renal failure with severe high anion gap and non anion gap metabolic acidosis and hyperkalemia prerenal/ ATN Now on CVVHD. Labs q 6 hours. Severe electrolyte abnormalities Hypokalemia, hypomagnesemia, hypocalcemia Now better with CRRT being corrected there. Getting IV calcium as needed. Anemia Drop in HH without any bleeding probably dilutional received 1 unit of PRBC. Metabolic acidosis Combined NAGMA and HAGMA BMP every 4 hours Elevated ketones possibly due to starvation However may have DKA also though on admission sugars not elevated as has not been eating for 3 to 4 days. Diabetes mellitus type 2 in obese sugars low normal today Levemir, lispro. Hypertension continue metoprolol with hold parameters. Hypothyroidism. Status post thyroidectomy. Synthroid GERD PPI VS,Fishbone, I+O VS, Fishbone, I+O Laboratory Tests 08/28/20 17:57 08/29/20 00:48 08/29/20 05:51 Vital Signs Date Time Temp Pulse Resp B/P (MAP) Pulse Ox O2 Delivery O2 Flow Rate FiO2 08/29/20 08:21 93 142/86 08/29/20 08:00 96.0 16 97 Nasal Cannula 1.0 l I&O- Last 24 Hours up to 6 AM 08/29/20 06:00 Intake Total 2788 ml Output Total 3202 ml Balance -414 ml JULIA KEY MD Aug 29, 2020 09:41
[2020-08-29 12:07] LABS: IONIZED CALCIUM 4.3 MG/DL (4.5-5.3)
[2020-08-29 12:12] LABS: HEMATOCRIT 23.4 % (36.0-47.0); HEMOGLOBIN 8.1 g/dl (12.0-15.5); MEAN CORPUSCULAR HEMOGLOBIN 29.6 pg (27.0-33.0); MEAN CORPUSCULAR HGB CONC 34.6 g/dl (32.0-36.5); MEAN CORPUSCULAR VOLUME 85.4 fl (80.0-96.0); PLATELET COUNT, AUTOMATED 171 10^3/uL (150-450); RED BLOOD COUNT 2.74 10^6/uL (4.00-5.40); WHITE BLOOD COUNT 8.5 10^3/uL (4.0-10.0)
[2020-08-29 12:40] LABS: CALCIUM LEVEL 7.6 MG/DL (8.5-10.1); CREATININE FOR GFR 3.66 MG/DL (0.55-1.30); GLOMERULAR FILTRATION RATE 13.9 (>51); MAGNESIUM LEVEL 2.2 MG/DL (1.8-2.4); PHOSPHORUS LEVEL 2.8 MG/DL (2.5-4.9); POTASSIUM SERUM 4.3 MEQ/L (3.5-5.1)
[2020-08-29] MEDS: ACETAMINOPHEN TAB 650MG DOSE (2X325MG) PO PRN (20:29)
[2020-08-30] VITALS (12 sets, daily range): BP systolic 130–159; BP diastolic 71–100
[2020-08-30 05:17] LABS: BASO % 0.6 % (0.0-1.0); EOS # 0.2 10^3/uL (0.0-0.5); EOS % 3.7 % (0.0-3.0); HEMATOCRIT 21.8 % (36.0-47.0); HEMOGLOBIN 7.4 g/dl (12.0-15.5); LYMPH # 1.3 10^3/uL (1.5-5.0); LYMPH % 19.8 % (24.0-44.0); MEAN CORPUSCULAR HEMOGLOBIN 29.6 pg (27.0-33.0); MEAN CORPUSCULAR HGB CONC 33.9 g/dl (32.0-36.5); MEAN CORPUSCULAR VOLUME 87.2 fl (80.0-96.0); MONO # 0.6 10^3/uL (0.0-0.8); MONO % 9.4 % (0.0-5.0); NEUTROPHILS # 4.3 10^3/uL (1.5-8.5); NEUTROPHILS % 65.9 % (36.0-66.0); PLATELET COUNT, AUTOMATED 176 10^3/uL (150-450); WHITE BLOOD COUNT 6.5 10^3/uL (4.0-10.0)
[2020-08-30 05:45] LABS: ALBUMIN 2.1 GM/DL (3.2-5.2); BILIRUBIN,TOTAL 0.2 MG/DL (0.2-1.0); CALCIUM LEVEL 6.9 MG/DL (8.5-10.1); CREATININE FOR GFR 4.73 MG/DL (0.55-1.30); GLOMERULAR FILTRATION RATE 10.3 (>51); MAGNESIUM LEVEL 2.1 MG/DL (1.8-2.4); PHOSPHORUS LEVEL 3.5 MG/DL (2.5-4.9); TOTAL PROTEIN 5.3 GM/DL (6.4-8.2)
[2020-08-30] MEDS: HumaLOG INSULIN (NovoLOG) PER UNIT SC SCH ×4 (07:30→20:07)
[2020-08-30] MEDS: LEVOTHYROXINE 25MCG TABLET (0.025MG) PO SCH (07:45)
[2020-08-30] MEDS: LEVOTHYROXINE 150MCG TABLET (0.15MG) PO SCH (07:45)
--- NOTE | 2020-08-30 08:18 | CR ---
DATE OF CONSULTATION: 08/27/2020 HISTORY OF PRESENT ILLNESS: Ms. Villalobos is a 50-year-old female with a past medical history of hypertension, diabetes, hypothyroidism, status post thyroidectomy, previous history of pancreatitis, who presented with complaints of shortness of breath, nausea, vomiting and diarrhea with decreased p.o. intake. The patient reports her symptoms started about 2 weeks ago, initially as acute sinusitis. She has a history of seasonal allergies and frequently will have episodes of sinusitis in the past around this time of year, where she does require antibiotics generally, as well as occasionally steroids. She states that she started having nasal congestion, sinus tenderness, headaches and sneezing. She did not have any fevers or chills and she did not receive any antibiotics this time as she felt her symptoms were improving on their own with [id number] medications. She did take Ibuprofen for a few days because of the headaches that she was having. She started noticing about 3 days ago symptoms of nausea, vomiting, and diarrhea. The patient was having two or three episodes of diarrhea a day but denied noticing any blood in her stool. Her vomiting, she states was mostly bilious with no evidence of hematemesis. She had not noticed any significant coughing and she had just generalized abdominal tenderness from the vomiting. She was noted to have worsening shortness of breath, particularly with exertion and that had brought her to the E.D. for further evaluation. The patient denied having any chest pain. She did not notice any increased lower extremity edema. She denies a previous history of lung issues in the past although she did have a tracheostomy when she was hospitalized for pancreatitis in 1999 which she was able to wean from and it had closed. In the E.D. the patient was given 2 liters of normal saline as well as one amp of sodium bicarbonate and 10 units of insulin with an amp of D-50. She was initially admitted to PCU and then admitted to the ICU for further management. PAST MEDICAL/HISTORY: The patient's past medical/surgical history is significant for: * Diabetes. * Hypertension. * Gastroesophageal reflux disease. * Hypothyroidism status post thyroidectomy for patient reports a malignant neoplasm in her thyroid. * History of seasonal allergies. * Appendectomy. * Left shoulder replacement. * Right knee repair. * Left knee arthroscopic surgery. * History of tracheostomy in 1999 after she was intubated for severe pancreatitis. * Hysterectomy possibly malignancy. FAMILY HISTORY: The patient's family history is negative for any significant for brother with history of lung cancer, a sister with a history of breast cancer. SOCIAL HISTORY: Denies history of tobacco use. No alcohol use since 1999 after her episodes of pancreatitis. She denies any other illicit drug use. The patient is a retired employee benefits insurance agent. HOME MEDICATIONS: * Lantus. * Synthroid. * Losartan/Hydrochlorothiazide. * Metformin. * Metoprolol. * Multivitamin. * Omeprazole. * Tylenol p.r.n. * Albuterol p.r.n. * Ibuprofen p.r.n. ALLERGIES: No known drug allergies. PHYSICAL EXAMINATION: VITAL SIGNS: Temperature 97.6, pulse 115, respirations 38, blood pressure 124/63, O2 sat is 100% on room air. In 2.7 liters, out 5 mL. GENERAL APPEARANCE: The patient is lying in bed, appears tachypneic, is able to speak in short sentences, does not appear to be using accessory muscles for respiration. She is alert and oriented x3. HEENT: Normocephalic and atraumatic. Pupils are reactive to light bilaterally. There are dry mucous membranes noted. NECK: Supple. Trachea is midline. No palpable cervical adenopathy. CARDIOVASCULAR: Tachycardic, regular rate and rhythm and normal S1, S2. Unable to appreciate any murmurs. PULMONARY: There are fine crackles at the bases bilaterally as well as crackles anteriorly. No wheezes or rhonchi. No accessory muscle use. ABDOMEN: Soft, obese, nondistended. There is generalized tenderness to palpation diffusely. Unable to palpate any hepatomegaly. EXTREMITIES: There is no pitting edema in the bilateral lower extremities. There are some varicose veins present. Peripheral pulses are palpated. LABORATORY DATA: WBC 12.5, hemoglobin 9.3, platelets are 334. Chemistries: Sodium is 134, potassium 5.6, chloride is 102, bicarbonate is 3, BUN 120, creatinine 13.2. Glucose is 163, lactic acid was 1.9, AST 26, ALT 17, alkaline phosphatase 110, BNP 6803, beta hydroxy butyrate greater than 46. ABG: ph 7.002, pco2 of 14.7, pO2 of 147.6, bicarbonate is 3.6. Respiratory panel is negative. IMAGING DATA: Chest x-ray shows questionable infiltrate in the right base posteriorly with questionable blunting in the right costophrenic angle. There do not appear to be significant pulmonary vascular congestion. Renal ultrasound there is bilateral echogenic kidneys, consistent with medical renal disease. There is mild bilateral caliectasis versus hypoechoic medullary accentuated by the echogenic cortex. No significant hydronephrosis. ASSESSMENT AND PLAN: Ms. Villalobos is a 50-year-old female with a past medical history of hypertension, diabetes, hypothyroidism, status post thyroidectomy, previous history of pancreatitis, who presented with complaints of shortness of breath, nausea, vomiting, diarrhea, and decreased p.o. intake. - Patient was found admission to have evidence of acute renal failure as well as a severe metabolic acidosis with an anion gap metabolic acidosis as well as a non-anion gap metabolic acidosis. She did have elevated beta hydroxy butyrate and normal lactic acid, so her anion gap acidosis may be secondary to ketoacidosis with a non anion gap acidosis from renal failure. Uremia is also a possible contributor for her anion gap acidosis - The patient's acute renal failure likely was essentially prerenal and with her medications, particularly Metformin, may have developed ATN. - The patient appears to have shortness of breath and tachypnea in the setting of her severe acidosis. She appears to be appropriately compensated from a respiratory standpoint with a respiratory alkalosis. She does also have elevated BNP and some crackles on exam, although she appears to be oxygenating well currently, and does not appear to be severely fluid overloaded. She did have a Winslow placed and appears to have very minimal output at this time. - Appreciate renal consult and recommendations. The patient was given additional IV bicarbonate and started on a bicarbonate drip. We will need to closely monitor her acidosis and her renal function, as she may potentially need dialysis, given her severe acidemia and if she continues, to be oliguric. - We will continue to closely monitor her respiratory status, given her increased work of breathing, with her metabolic acidosis. If the patient appears to be tiring out or retaining CO2, and unable to compensate any further, then she may require mechanical ventilation at that time. We will also closely monitor her oxygenation as with the bicarbonate, if fluids, she may develop worsening pulmonary edema. She may need diuretics at that time, which we would need to monitor electrolytes and discuss with Renal. - The patient has a history of diabetes, and she did have elevated ketones, some of which is likely in the setting of her decreased p.o. intake. With her anion gap acidosis, however, there is concern for possible DKA, although she does not appear to be severely hyperglycemic. We will discuss with Renal about giving her insulin and having patient on only clear liquids for now, and consider starting insulin drip if there is difficulty with decreasing her anion gap. She does not appear to have any lactic acidosis contributing to her anion gap. - The patient has a history of pancreatitis. Given her nausea, vomiting we will check and amylase and lipase to evaluate for acute pancreatitis. - We will also check a thyroid function and would continue with her home medications of Synthroid. - We will need to monitor electrolytes. She did have hyperkalemia initially in the setting of her renal failure. - DVT prophylaxis Heparin. - Code status full code. Total critical care time spent not including any procedures approximately one hour and 30 minutes. MTDD
--- NOTE | 2020-08-30 08:22 | CR ---
NEPHROLOGY CONSULTATION DATE OF CONSULTATION: 08/27/2020 CONSULTATION REQUESTED BY: Fernando Hutchinson DO REASON FOR CONSULTATION: Acute renal failure and severe metabolic acidosis. HISTORY OF PRESENT ILLNESS: Ms. Villalobos is a 50-year-old female with known history of diabetes, hypertension, hypothyroidism, prior history of pancreatitis several years ago and history of recurrent GI problems. She presented to the Emergency Room today with one week history of nausea and vomiting. She has been on Metformin and insulin for diabetes along with Losartan and Hydrochlorothiazide for hypertension and she continued taking her medications. She was noticed to have severe metabolic acidosis with pH of 6.9 on arrival and BUN was 124 and creatinine 13.5. A nephrology consultation was requested and I discussed the care plan at the time of initial consult request with admitting physician over the phone. I came to see the patient in the progressive care unit, however, I was informed the patient was still in the Emergency Room and has just been transferred up to the Intensive Care Unit now. Patient was able to give information, though she was quite short of breath. PAST MEDICAL HISTORY: Significant for: 1. Diabetes following acute pancreatitis several years ago. 2. Hypertension. 3. Hypothyroidism. 4. Gastroesophageal reflux disease. 5. Seasonal allergies. SURGICAL HISTORY: Significant for: 1. Tracheostomy when she had complicated hospitalization with acute pancreatitis. 2. Thyroidectomy. 3. Appendectomy. 4. Left shoulder replacement. 5. Right knee repair. 6. Left knee arthroscopic surgery. FAMILY HISTORY: Negative for kidney problems. Her sister has history of breast cancer. PERSONAL AND SOCIAL HISTORY: Patient denies any alcohol, drug or tobacco use. MEDICATIONS: Her home medications include: 1. Lantus Insulin 22 units daily. 2. Levothyroxine 150 mcg daily. 3. Losartan with Hydrochlorothiazide 100/25 mg one tablet daily. 4. Metformin 1,000 mg b.i.d. 5. Metoprolol 50 mg daily. 6. Multivitamin one tablet daily. 7. Omeprazole 20 mg daily. 8. Ibuprofen 200 mg every 6 hours p.r.n. for headache. 9. Tylenol 650 mg p.r.n. for pain. 10. Albuterol p.r.n. for shortness of breath. REVIEW OF SYSTEMS: Patient denies any fever or chills. Most of her symptoms are nausea and vomiting. She does have some history of diarrhea, but that has slowed down as she was not eating much. She reports poor oral intake for the last several days. Ears, nose and throat are unremarkable. Cardiovascular system is significant for hypertension. She denies any chest pain at present. Respiratory system is significant for seasonal allergies and mild asthma. She denies any hemoptysis or pleuritic type of chest pain. GI system is significant for nausea and vomiting. She also had some diarrhea. She denies any abdominal pain at present. She has prior history of pancreatitis. Endocrine system is significant for type 2 diabetes. She also has hypothyroidism. Psychosocial system is negative for depression and anxiety. 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 Neurologic system is negative for seizures or stroke. Skin is negative for rash or ulcers. PHYSICAL EXAMINATION: GENERAL: Patient is quite short of breath on arrival to the Intensive Care Unit. VITALS: Temperature 97.8 degrees Fahrenheit, heart rate 110 per minute, respiratory rate 28 per minute, blood pressure 115/60 mmHg and oxygen saturation 99% on room air. HEENT: Atraumatic. Oral mucosa is dry and there is no thrush or ulcers. Pupils equal and reactive to light. Sclerae anicteric. Neck supple and without JVD or thyroid enlargement. Old tracheostomy scar is well healed. HEART: Sounds are tachycardic and without a pericardial friction rub. LUNGS: Sound clear to auscultation. ABDOMEN: Soft and bowel sounds are present. There is no palpable organomegaly. EXTREMITIES: Without any cyanosis or clubbing. NEUROLOGIC: She is awake, alert and at her baseline mentation without a focal neurologic deficit. LABORATORY DATA: Labs done in the Emergency Room at 2:00 a.m. today showed WBC 12.5, hemoglobin 9.3, hematocrit 28.9, platelets 334,000. Initial blood gas showed pH 6.84 with venous blood gas, pCO2 18 and pO2 124. Repeat blood gas at 6:00 a.m. today showed pH 7.0, pCO2 14.7, pO2 147 and bicarb 3.6. Initial chemistry showed lactic acid level 1.9, sodium 132, potassium 5.5, BUN 124 and creatinine 13.5. A pro-BNP level was 6,803. Troponin less than 0.02. Another chemistry showed sodium 134, potassium 5.6, bicarb 3, BUN 120 and creatinine 13.2. Calcium level 6.2. PROBLEMS: 1. Acute renal failure: Mostly this is prerenal azotemia, she has GI problems going on for the last several days. She looks quite dehydrated and I will recommend aggressive I.V. fluid hydration. At present, she needs sodium bicarbonate infusion due to severe metabolic acidosis. We will give her I.V. fluid at 150 to 200 mL per hour. 2. Metabolic acidosis: She has severe metabolic acidosis due to vomiting and diarrhea, in addition to acute renal failure. Sodium bicarbonate drip with 150 mEq of sodium bicarbonate in each liter is being started and we will continue to monitor her chemistries every few hours. 3. Hyperkalemia: She has mild hyperkalemia related to acute renal failure and metabolic acidosis. It is likely to correct quickly. 4. Nausea and vomiting: Etiology remains uncertain. She does have a remote history of pancreatitis, however, does not seem to have pancreatitis now as she has no abdominal pain. Her amylase has just come back at 48 and lipase level under 1. Symptomatic treatment is recommended. 5. Hypocalcemia: She has severe hypocalcemia related to acute renal failure and we will place calcium with intravenous calcium gluconate. Chemistries will be repeated in a few hours again. Thank you for involving me in the care of Ms. Villalobos. I will follow her along with you. CLOVIS
--- NOTE | 2020-08-30 08:31 | CCN ---
DATE: 08/28/2020 SUBJECTIVE: Patient was seen and examined this morning during bedside rounds. Overnight, the patient was noted to have severe electrolyte disturbances with hypokalemia, as well as hypomagnesemia and hypocalcemia. She was given 2 grams of calcium supplementation and 4 grams of magnesium, as well as 90 mEq total of potassium, some intravenous (IV) and some p.o. This morning, she was also noted to be anemic with her hemoglobin at 5.8. She was given 1 unit of packed red blood cells (PRBC) and repeat labs were drawn. The patient was continued on D5 with sodium bicarb infusion. Her bicarbonate levels improved and her acidosis has improved, and her renal function did improve slightly. She has, however, continued to have minimal urine output overnight despite aggressive fluid hydration. This morning, she does have some shortness of breath at times, although she states it has improved from initial presentation. She is not as tachypenic, but she is able to speak in short sentences only. The patient is on room air still, but does appear to have a lower saturation than previous. She was satting 100% previously on room air and is now 93% to 95% on room air. Patient denies any further episodes of nausea or vomiting. She did have some loose stool overnight. OBJECTIVE: VITAL SIGNS: Temperature 97.7, pulse 92, respirations 20, blood pressure 135/76, O2 saturation 93% to 95% on room air, in 5.8 liters, out 255 mL. GENERAL: Patient is pale, lying in bed. Does not appear to be in acute respiratory distress. She is speaking in short sentences and does not appear to accessory muscles for respiration. HEENT: Normocephalic, atraumatic. Pupils are reactive to light bilaterally. Mucous membranes are moist. There are pale conjunctivae. NECK: Supple. Trachea is midline. There is a tracheostomy scar. CARDIOVASCULAR: Regular rate and rhythm. Normal S1, S2. Unable to appreciate any murmur. PULMONARY: There are crackles bilaterally anteriorly, as well as posteriorly up to the mid lung mildly increased from yesterday. ABDOMEN: Soft, nontender, and nondistended. Normal bowel sounds present. EXTREMITIES: There is no significant lower extremity edema bilaterally. Peripheral pulses are palpable. LABORATORY DATA: WBC 6.3, hemoglobin 5.8, platelets 183,000. Chemistry: Sodium 136, potassium 2.9, chloride 98, bicarb 21, BUN 105, creatinine 11.1, glucose 191, ionized calcium 3.2, magnesium 1.0, phos 7.4. Arterial blood gases (ABG) pH is 7.406, pCO2 of 27.9, pO2 of 83.5. ASSESSMENT AND PLAN: 1. Ms. Villalobos is a 50-year-old female with a past medical history of diabetes, hypertension, hypothyroidism status post thyroidectomy, gastroesophageal reflux disease (GERD), and seasonal allergies who presented initially with complaints of dyspnea, nausea, vomiting, and a few episodes of diarrhea. The patient on admission was found to have a severe metabolic acidosis with acute renal failure. She had an anion gap metabolic acidosis, as well as a nonunion gap metabolic acidosis with a normal lactate and elevated ketones. The patient was seen by nephrology, appreciate their consult and recommendations. She was started on bicarbonate infusions and had improvement in her acidosis. 2. The patient now with multiple electrolyte disturbances including hypokalemia, hypomagnesemia, and hypocalcemia. She has been given repletion, but continues to have persistent electrolyte abnormality. 3. The patient also with anemia. She did not appear to have any blood in her stool and no episodes of hematemesis. She was given 1 unit of packed red blood cells (PRBC) for transfusion with repeat hemoglobin pending and additional transfusion as needed. 4. The patient does have some mild improvement in her renal function, although she continues to be relatively oliguric despite aggressive fluid repletion. She does continue to have an anion gap acidosis on her chemistry as well. 5. Will discuss with nephrology about the possibility of continuous veno-venous hemofiltration (CVVH). There is some concern of worsening fluid overload given her decreased urine output. She does have evidence of crackles on exam today, which are mildly increased from previous and while she is on room air still, her pO2 has gone down. The patient previously had a pO2 of 147.6 on admission and this morning on room air she is 83.5. 6. The patient is also with poor venous access. Given her need for q. 4 hour blood draws for her renal function and electrolyte disturbances and for improved venous access with the potential need for hemodialysis, will place a Trialysis catheter in the right internal jugular (IJ). 7. The patient has not had any further episodes of diarrhea. Her blood cultures, urine culture, and respiratory panel were negative. She has been afebrile. Antibiotics are on hold at this time. 8. Will continue monitoring her oxygen saturations and will give nasal cannula oxygen supplementation if needed. 9. The patient is on insulin detemir 10 units subcutaneously daily. She has lispro coverage with meals, but she has been on a clear liquid diet only at this time. She was hypoglycemic yesterday and so was started on D5 with her bicarbonate infusion. She appears to be hyperglycemic now and there is concern given her persistent acidosis of diabetic ketoacidosis (DKA). Her initial ketones were thought to have been in the setting of starvation ketoacidosis. Would consider increasing her insulin coverage, but will discuss with nephrology. 10. Will continue with the rest of her home medications as per primary team. Deep vein thrombosis (DVT) prophylaxis with heparin. Gastrointestinal (GI) prophylaxis with omeprazole. Code status: FULL CODE TOTAL CRITICAL CARE TIME: Not including any procedures approximately 40 minutes. MTDD
--- NOTE | 2020-08-30 08:33 | CCN ---
DATE: 08/29/2020 SUBJECTIVE: Patient was seen and examined this morning during bedside rounds. Yesterday the patient was started on continuous veno-venous hemodialysis (CVVHD), which she tolerated well with additional fluid removal initially around 50 mL/hour and increased to 100 mL/hour. The patients blood pressure tolerated the additional fluid removal, and she has also overnight started having increased urine output almost 30 mL/hour. This morning, the patient states her breathing is improved from her initial admission. She does have some shortness of breath at times, but denies any significant coughing except occasional cough with clear mucous. She has not had any chest pain. She denies any fevers or chills, though she does feel cold with the CVVHD. She has not had any further episodes of nausea or vomiting. She has poor appetite, but is tolerating the liquid diet and she does complain of feeling thirsty. She has not had any further diarrhea, but she did have slight loose stool. She has not had any abdominal pain. She did receive two units of packed red blood cells (PRBC) yesterday. She has continued to receive electrolyte repletion as needed as per renal. OBJECTIVE: VITAL SIGNS: T-max 99.2, T-current 96.0, pulse 93, respirations 16, blood pressure 142/86, O2 is 97% on 1 liter of nasal cannula. GENERAL: The patient is lying in bed. Does not appear in any acute distress. She is pale and is not using accessory muscles for respiration. She is able to speak in complete sentences. HEENT: Normocephalic, atraumatic. Pupils are reactive to light bilaterally. There are moist mucous membranes noted. NECK: Supple. Trachea is midline. There is no palpable cervical adenopathy. No jugular venous distention (JVD) noted. CARDIOVASCULAR: Regular rate and rhythm. Normal S1, S2. No murmurs appreciated. PULMONARY: Improved breath sounds bilaterally. There are crackles at the bases, but improved from yesterday. There are no rhonchi or wheezing. ABDOMEN: Obese, soft, nondistended, and nontender. Bowel sounds are present. EXTREMITIES: There is no significant lower extremity edema bilaterally. Peripheral pulses are palpable. LABORATORY DATA: WBC 9.1, hemoglobin 8.4, platelets 179,000. Chemistry: Sodium 137, potassium 4.4, chloride 104, bicarb 25, BUN 49, creatinine 4.50, glucose 91, calcium 8.1, magnesium 2.0. INR 1.36, PTT 42.3. IMAGING: Chest x-ray yesterday showed the right internal jugular (IJ) hemodialysis catheter with the tip in the region of the right atrium. There are new bilateral pleural effusions, right slightly larger than the left, with bilateral interstitial prominence suggesting pulmonary edema, as well as bibasilar compressive atelectasis. ASSESSMENT/PLAN: Ms. Villalobos is a 50-year-old female with a past medical history of diabetes, hypertension, hypothyroidism status post thyroidectomy, and previous history of pancreatitis who presented with complaints of dyspnea, nausea, vomiting, and a few episodes of diarrhea. Patient was found to have a severe metabolic acidosis with initial anion metabolic acidosis and a non-anion gap metabolic acidosis in the setting of acute renal failure. Patient was also noted to have severe electrolytes abnormalities with hypokalemia, hypocalcemia, and hypomagnesemia. She was seen by nephrology and was placed on a bicarbonate infusion and did have improvement in her acidosis; however, patient had persistent anion gap and persistent electrolyte abnormalities, as well as oliguria despite aggressive fluid hydration and repletion. She was therefore started on continuous veno-venous hemodialysis (CVVHD) yesterday and did have improvement in her electrolyte disturbances, as well as her renal function. Patient also with evidence of pulmonary edema and fluid overload with bilateral pleural effusions, which developed after she received the fluid resuscitation. She has been tolerating fluid removal with CVVHD and on exam, her breath sounds appeared improved today. - Appreciate nephrology consult and recommendations. Continue with CVVHD as per nephrology with electrolyte replacement as needed. - Patient does have evidence of pulmonary edema and bilateral pleural effusions on imaging, but she is tolerating additional fluid removal with CVVHD. Would continue to monitor and can consider repeating a chest x-ray in the next day or two. Would wean down nasal cannula oxygen supplementation as tolerated. Will give patient incentive spirometer as well to help with atelectasis. - Patient has remained afebrile without leukocytosis. Her urine culture and blood cultures have been negative. Her chest x-ray is more suggestive of fluid overload, but if she does having increasing leukocytosis or fever or increased cough, would consider antibiotics for possible pneumonia. - Patient had received two units of packed red blood cells (PRBC) transfusion yesterday for anemia. She does not appear to have evidence of acute bleeding. Has not had any melena. No blood in her stool and no hematemesis. Her abdomen exam is also benign. Would continue to monitor her hemoglobin and hematocrit (H&H) and transfuse as needed for hemoglobin less than 7. Deep vein thrombosis (DVT) with heparin. Code status: FULL CODE. TOTAL CRITICAL CARE TIME: Not including procedures approximately 35 minutes. Please do not hesitate to call if you have any further questions or concerns. CLOVIS
--- NOTE | 2020-08-30 08:37 | CCN ---
DATE: 08/29/2020 SUBJECTIVE: Patient was seen and examined at the bedside today morning in the ICU. She was getting CVVHDF when I examined her. She is tolerating the CVVHDF since yesterday afternoon. Her electrolytes and acid-base status is significantly better. Urine output is also slowly improving. She is also making almost 30 cc of urine an hour and she is tolerating the fluid removal with CVVHDF as well. She was given PRBC transfusion. Her hemoglobin levels are stable since yesterday. Patient was able to eat some of her breakfast today morning and she denies any nausea, vomiting or diarrhea. OBJECTIVE: Vital signs: Temperature 95.4 degrees Fahrenheit, blood pressure 138/87, pulse 88, respiratory rate 16 and saturating 96% on room air. INTAKE AND OUTPUT: Urine output recorded as 480 mL yesterday and 492 mL so far today since overnight. Ultrafiltration with CVVHDF is 2.3 liters so far since overnight. Weight in the bed scale is 97.1 kg. PHYSICAL EXAMINATION: GENERAL: Patient is awake, alert, oriented x3, laying in bed getting CVVHDF done. HEAD AND NECK: Extraocular muscles intact. Pupils equally round and reactive to light. Neck is supple. She has a right IJ trial assist catheter being used at this time. CARDIOVASCULAR: S1, S2, regular rate. No edema of the bilateral lower extremities. RESPIRATORY: Mildly decreased breath sounds at the bases. Otherwise, no active rales or rhonchi. ABDOMEN: Soft. Positive bowel sounds. Nontender. No organomegaly. MUSCULOSKELETAL: No clubbing or cyanosis. Pulses are 2+. LUDLOW MACHINE OPERATOR: No focal deficit. Power is 5/5 in all extremities. LABORATORY REVIEW: CBC showed WBC 8.5, hemoglobin 8.1, platelets 171,000. BMP showed sodium 137, potassium 4.3, chloride 104, bicarb 26, BUN 33, creatinine 3.6, calcium 7.6, ionized calcium 4.3. Phosphorus 2.8. CURRENT INPATIENT MEDICATIONS: Patient's medications were all reviewed by myself. No other significant change in the medications today as compared with yesterday. ASSESSMENT AND PLAN: 1. Acute renal failure: Patient is nonoliguric at this time, urine output is at around 30 cc an hour now. He was started on CVVHDF yesterday. Electrolytes are stable. Acid-base status is improved now. I am going to hold the CVVHDF and monitor the renal function. I am hopeful patient will not need bedside intermittent hemodialysis. 2. Hypokalemia: It has improved with dialysis and addition of potassium. 3. Metabolic acidosis: It has resolved now. Bicarb level is 26, which is within the acceptable range. 4. Hypocalcemia: Patient is being I.V. calcium gluconate repletion. 5. Hypophosphatemia: It was secondary to renal failure, phosphorus levels are within the acceptable range. 6. Anemia: Hemoglobin 8.1, which is acceptable. Patient is status post 2 units of PRBC transfusion. 7. Protein calorie malnutrition: Patient started tolerating her oral diet. 8. Diabetes mellitus insulin dependent: Patient is tolerating current insulin dose. Glucose levels are within the acceptable range. DISPOSITION: CVVHDF is being stopped today. I would continue to monitor the renal function for improvement of her acute renal failure. TOTAL CRITICAL CARE TIME SPENT IN THE MANAGEMENT OF THIS PATIENT TODAY MORNING IN THE ICU: 45 minutes (excluding all the procedures). CLOVIS
[2020-08-30] MEDS ORDERED: CALCIUM GLUCONATE 1,000 MG in D5W MINI-BAG PLUS 100 ML IV ONE (09:30)
[2020-08-30] MEDS: METOPROLOL SUCC (TopROL XL) 50MG **XL** TAB PO SCH (09:42)
[2020-08-30] MEDS: LEVEMIR (INSULIN DETEMIR) 1 UNITS/0.01ML SC SCH (09:43)
[2020-08-30] MEDS: HEPARIN SOD (PORCINE) 5000UNITS/ML 1ML VIAL/SYRINGE SC SCH ×2 (09:44→20:07)
[2020-08-30] MEDS: PANTOPRAZOLE 40MG VIAL (C9113 PER 1) IV SCH ×2 (09:47→20:07)
[2020-08-30 11:59] LABS: PTH INTACT 91.1 PG/ML (18.5-88.0)
--- NOTE | 2020-08-30 12:25 | CCN ---
DATE: 08/28/2020 SUBJECTIVE: The patient was seen and examined at the bedside today morning in the ICU, last 24 hour events are noted. The patient was given IV fluid hydration. Her electrolytes are aggressively being repleted. She was getting IV bicarbonate containing fluids; and because of all the fluid administration and the patient being oliguric, the patient started getting slightly fluid overloaded and short of breath today morning. There is no significant improvement in her renal function. Creatinine still stays above 10. She still has multiple electrolyte abnormalities including hypokalemia, hypomagnesemia, hypocalcemia and she still has high anion gap metabolic acidosis. The case was discussed with myself, by the hospitalist and pulmonary critical care service and decision was made to try dialysis catheter in the right IJ. The patient got the catheter placed. I got the consent from her and she agreed for hemodialysis. When I saw her, apart from her shortness of breath, the patient denied any fever, chills, chest pain, nausea, vomiting or abdominal pain. OBJECTIVE: Vital signs: Temperature is 97.6 degrees Fahrenheit, blood pressure 136/73, pulse is 90, respiratory rate of 18, saturated 95% on room air. Intake and output: When I saw her in the morning, her urine output was only 80 cc. Weight in the bed scale was 97.6 kg. PHYSICAL EXAMINATION: General: The patient is awake, alert, oriented x3, laying in bed in moderate respiratory distress. Head and neck examination: Extraocular muscles intact. Pupils equally round and reactive to light. Mucous membranes are moist. Neck is supple. She has a right IJ dialysis catheter. Cardiovascular: S1, S2, slight tachycardia. No edema of the bilateral lower extremities. Respiratory: Decreased breath sounds at the bases. Otherwise, no active rales or rhonchi. Abdomen: Soft. Positive bowel sounds. Nontender. No organomegaly was noted. Musculoskeletal: No clubbing or cyanosis. Pulses are 2+. CHEMICAL OPERATOR: No focal deficit. Power is 5/5 in all extremities. Skin: No rashes or ulcers. LABORATORY REVIEW: Complete blood count (CBC) showed a WBC 9.6, hemoglobin 7, platelets are 185. PT is 17.7, INR is 1.43 today morning. Arterial blood gas (ABG) done today morning showed a pH of 7.40, pCO2 of 27.9, pO2 85, bicarbonate is 17, O2 saturation is 94%. Basic metabolic panel (BMP) done today morning showed sodium 132, potassium 2.9, chloride 94, bicarbonate 18, BUN 100, creatinine is 10.7, glucose 260, calcium 6.6, ionized calcium was 3.3, magnesium was 1.9, which improved from a level of 1 after IV magnesium. Beta hydroxybutyrate repeat level was 1.7 today morning. Ethyl alcohol was less than 0.03. Microbiology: All the cultures are negative so far. IMAGING: A chest x-ray was done after the procedure today with the tip of the dialysis catheter in the right atrium. And in the lungs, there was new diffuse bilateral intersitial prominence suggesting edema and there were new moderate right and small left pleural effusions. CURRENT INPATIENT MEDICATIONS: The patient got multiple doses of calcium gluconate overnight. She also got IV KCl. She got runs of magnesium today morning. She was getting sodium bicarbonate drip, which was stopped today morning because of shortness of breath. She continues to be on insulin Levemir 15 units subcutaneous tissues daily, levothyroxine 175 mcg by mouth daily. She is on metoprolol XL 50 mg by mouth daily. No other significant change in the medications today as compared to yesterday. ASSESSMENT AND PLAN: 1. Acute oliguric renal failure. Because of multiple electrolyte abnormalities, fluid overload and high anion gap metabolic acidosis, decision was made to start the patient on CVVHDF. The patient agreed to start dialysis. Dialysis catheter has been placed. The patient will be started on CVVHDF. I am reluctant to do regular dialysis on this patient to prevent sudden change in electrolytes and acid base status and I am hopeful that within 1 to 2 days of CVVHDF, hopefully the patient will start making urine and her renal function should improve. 2. Hypokalemia. The patient remains hypokalemic despite aggressive IV potassium repletion. I have ordered 20 mEq of KCl to be given through the central line and the rest of the potassium repletion will be done during CVVHDF protocol and use of CVVHDF fluids with potassium of 4K should also help improve the potassium level. 3. High anion gap metabolic acidosis. The patient's lactic acid level was within the acceptable range. She had starvation ketosis on arrival; however repeat beta hydroxybutyrate is within the normal range. Methanol levels are negative. She would not be able to correct her acidosis with acute renal failure and to help improve her acidosis, the patient has been started on CVVHDF. Her bicarbonate level should get better. She does not need IV bicarbonate administration while she is on CVVHDF. 4. Diabetes mellitus type 2 with elevated beta hydroxybutyrate. The patient's ketone levels are better. She is getting insulin sliding scale and Levemir coverage. Glucose levels are within the acceptable range. 5. Hypocalcemia. The patient is getting IV calcium gluconate. Calcium level is expected to improve with CVVHDF. 6. Fluid overload. It is secondary to aggressive IV fluid hydration and repletion of electrolytes and the patient being oliguric. I have also written fluid removal parameters according to the patient's mean arterial pressure. 7. Anemia. Hemoglobin level is 7. The patient will get PRBC transfusion once she starts the CVVHDF and fluid removal 8. Hypothyroidism. Continue home dose of levothyroxine. Total critical care time spent in the management of this patient today morning in the ICU, excluding all the procedures was 1 hour. BRADD
[2020-08-30 14:37] LABS: PERCENT SATURATION 38.1 % (13.2-45.0)
[2020-08-30 14:40] LABS: FOLATE 8.2 NG/ML (>5.4)
--- NOTE | 2020-08-30 16:17 | IPNPDOC ---
Text Note Date of Service The patient was seen on 08/30/20. NOTE Subjective: Feels better than yesterday. Denies any nausea or vomiting today, No diarrhea. Of CRRT since yesterday. Patient had an inadvertent COVID exposure so is now on COVID precautions. Physical exam Vitals as below General Exam: Patient laying down in bed in no discomfort. Alert and oriented Eye Exam: PERRLA ENT Exam: Normocephalic Atraumatic. Moist mucous membranes. Anicteric eyes Neck Exam: Supple, JVD present Chest Exam: clear to auscultation. Heart Exam: Normal S1 and S2 , regular rhythm and rate, no rub, murmur or gallop Telemetry: Sinus Abdomen Exam: Soft, non tender,No rebound or rigidity, bowel sounds normal. Extremity Exam: No Cyanosis , no edema Skin Exam: Nl turgor and temperature Neuro Exam: Strength at 5/5 X4 ext, Cranial Nerves 3-12 NL, no focal neurodeficits. Psych Exam: Mental status NL, alert, oriented 3 Patient is 51 years old female with past history of diabetes, hypertension, hypothyroidism presented hospital with nausea, vomiting and diarrhea. Patient stated that around 7 days ago she developed upper respiratory symptoms started as sinusitis, was not eating well as had poor appetite. She then she developed multiple episodes of vomiting 3 days ago associated with nausea and some diarrhea, unable to keep anything down. SHe was ound to be in FESTUS , with severe metabolic acidosis and elevated ketones and elevated lactate. Acute renal failure with severe high anion gap and non anion gap metabolic acidosis and hyperkalemia prerenal/ ATN resolving. Off CRRT Increasing urine output. Severe electrolyte abnormalities Hypokalemia, hypomagnesemia, hypocalcemia Now corrected Anemia Drop in HH without any bleeding probably dilutional and from FESTUS. No overt bleeding noted. Abdominal exam benign received 3 unit of PRBC. will get iron studies, vit b12 and folate and stool for occult blood. Will try to get old blood test results from [facility]. Metabolic acidosis Combined NAGMA and HAGMA now resolved. Elevated ketones possibly due to starvation +/- DKA However may have had DKA also though on admission sugars not elevated as has not been eating for 3 to 4 days. Diabetes mellitus type 2 in obese FS Ac and HS Levemir, lispro. Hypertension continue metoprolol with hold parameters. Hypothyroidism. Status post thyroidectomy. Synthroid GERD PPI VS,Fishbone, I+O VS, Fishbone, I+O Laboratory Tests 08/29/20 11:59 08/30/20 04:51 Vital Signs Date Time Temp Pulse Resp B/P (MAP) Pulse Ox O2 Delivery O2 Flow Rate FiO2 08/30/20 00:00 98.0 86 24 130/71 (90) 94 Room Air 08/29/20 11:00 1.0 I&O- Last 24 Hours up to 6 AM 08/30/20 07:00 Intake Total 1570 ml Output Total 1436 ml Balance 134 ml JULIA KEY MD Aug 30, 2020 07:40
[2020-08-30 18:01] LABS: BASO # 0.1 10^3/uL (0.0-0.2); BASO % 0.7 % (0.0-1.0); EOS # 0.3 10^3/uL (0.0-0.5); EOS % 4.2 % (0.0-3.0); HEMATOCRIT 24.7 % (36.0-47.0); HEMOGLOBIN 8.4 g/dl (12.0-15.5); LYMPH # 1.4 10^3/uL (1.5-5.0); LYMPH % 20.1 % (24.0-44.0); MEAN CORPUSCULAR HEMOGLOBIN 30.1 pg (27.0-33.0); MEAN CORPUSCULAR VOLUME 88.5 fl (80.0-96.0); MONO # 0.7 10^3/uL (0.0-0.8); MONO % 10.4 % (0.0-5.0); NEUTROPHILS # 4.4 10^3/uL (1.5-8.5); NEUTROPHILS % 63.6 % (36.0-66.0); PLATELET COUNT, AUTOMATED 175 10^3/uL (150-450); RED BLOOD COUNT 2.79 10^6/uL (4.00-5.40); WHITE BLOOD COUNT 6.9 10^3/uL (4.0-10.0)
[2020-08-30 18:23] LABS: CALCIUM LEVEL 7.5 MG/DL (8.5-10.1); CREATININE FOR GFR 5.09 MG/DL (0.55-1.30); GLOMERULAR FILTRATION RATE 9.5 (>51); POTASSIUM SERUM 3.5 MEQ/L (3.5-5.1)
[2020-08-31] VITALS (9 sets, daily range): BP systolic 130–190; BP diastolic 78–120
[2020-08-31] MEDS ORDERED: guaiFENesin 200 MG TAB PO ONE (02:45)
[2020-08-31] MEDS: LEVOTHYROXINE 150MCG TABLET (0.15MG) PO SCH (06:11)
[2020-08-31] MEDS: ACETAMINOPHEN TAB 650MG DOSE (2X325MG) PO PRN (06:12)
[2020-08-31 06:36] LABS: BASO % 0.4 % (0.0-1.0); EOS # 0.4 10^3/uL (0.0-0.5); EOS % 5.1 % (0.0-3.0); HEMATOCRIT 25.2 % (36.0-47.0); HEMOGLOBIN 8.6 g/dl (12.0-15.5); LYMPH # 1.7 10^3/uL (1.5-5.0); LYMPH % 24.7 % (24.0-44.0); MEAN CORPUSCULAR HEMOGLOBIN 30.5 pg (27.0-33.0); MEAN CORPUSCULAR HGB CONC 34.1 g/dl (32.0-36.5); MEAN CORPUSCULAR VOLUME 89.4 fl (80.0-96.0); MONO # 0.7 10^3/uL (0.0-0.8); MONO % 9.4 % (0.0-5.0); NEUTROPHILS # 4.2 10^3/uL (1.5-8.5); NEUTROPHILS % 59.3 % (36.0-66.0); PLATELET COUNT, AUTOMATED 198 10^3/uL (150-450); RED BLOOD COUNT 2.82 10^6/uL (4.00-5.40)
[2020-08-31 06:57] LABS: CALCIUM LEVEL 7.2 MG/DL (8.5-10.1); CREATININE FOR GFR 5.66 MG/DL (0.55-1.30); GLOMERULAR FILTRATION RATE 8.4 (>51); MAGNESIUM LEVEL 1.9 MG/DL (1.8-2.4); PHOSPHORUS LEVEL 3.3 MG/DL (2.5-4.9); POTASSIUM SERUM 3.2 MEQ/L (3.5-5.1)
[2020-08-31] MEDS: HumaLOG INSULIN (NovoLOG) PER UNIT SC SCH ×4 (07:30→21:00)
[2020-08-31] MEDS: LEVEMIR (INSULIN DETEMIR) 1 UNITS/0.01ML SC SCH (08:02)
[2020-08-31] MEDS: METOPROLOL SUCC (TopROL XL) 50MG **XL** TAB PO SCH (08:30)
[2020-08-31] MEDS: HEPARIN SOD (PORCINE) 5000UNITS/ML 1ML VIAL/SYRINGE SC SCH ×2 (08:30→21:10)
[2020-08-31] MEDS: PANTOPRAZOLE 40MG VIAL (C9113 PER 1) IV SCH ×2 (08:30→21:10)
[2020-08-31] MEDS: amLODIPine 5 MG TAB PO SCH (09:00)
[2020-08-31] MEDS ORDERED: POTASSIUM CHLORIDE 10 MEQ SR TABLET PO ONE (09:45)
--- NOTE | 2020-08-31 11:01 | IPN ---
DATE: 08/30/2020 SUBJECTIVE: This patient was seen and examined at the beside today morning in the intensive care unit (ICU). Continuous veno-venous hemodialysis (CVVHD) was stopped yesterday. The patient is nonoliguric at this time. Her urine output is at around 60 to 70 mL/hour. Electrolytes are within the acceptable range; however, creatinine has bumped up since after starting CVVHD. She denies any shortness of breath at this time. The patients anemia is slightly worse today as compared with yesterday. OBJECTIVE: VITAL SIGNS: Temperature 98.5 degrees Fahrenheit, blood pressure 147/92, pulse is 86, respiratory rate of 20, saturating 98% on room air. INTAKE AND OUTPUT: Urine output recorded at 632 mL yesterday, 800 mL so far today since overnight. Weight on the bed scale is 96.3 kg. GENERAL: Patient is awake, alert, and oriented x3, laying in bed, in no apparent distress. HEAD AND NECK: Extraocular movements are intact. Pupils equally round and reactive to light. Mucous membranes are moist. Neck is supple. She has a right internal jugular (IJ) Trialysis catheter. CARDIOVASCULAR: S1, S2, regular rate. EXTREMITIES: No edema of the bilateral lower extremities. RESPIRATORY: Chest is clear to auscultation bilaterally. Bilaterally currently no rales or rhonchi. ABDOMEN: Soft with positive bowel sounds and nontender. No organomegaly. GENITOURINARY: She has an indwelling Winslow catheter. MUSCULOSKELETAL: No clubbing or cyanosis. Pulses are 2+. PERSONAL CARE AIDE: No focal deficits. Power is 5/5 in all extremities. LABORATORY REVIEW: CBC showed a WBC of 6.5, hemoglobin 7.4, platelets 176,000. BMP showed sodium 137, potassium 3.5, chloride 104, bicarb 25, BUN 47, creatinine 5. Calcium 7.5. Iron is 48, TIBC 126, transferrin saturation 38.1, ferritin 262. Lactate dehydrogenase is 75. Microbiology: All the cultures are negative so far. Fecal occult blood testing is negative. CURRENT INPATIENT MEDICATIONS: Patients medications were all reviewed by myself. I ordered a dose of calcium gluconate IV to be given today. She was also ordered a unit of packed red blood cells (PRBC) transfusion, and she has been started on Protonix 40 mg IV twice a day. No other significant change in her medication today as compared with yesterday. ASSESSMENT AND PLAN: 1. Acute renal failure. The patient is nonoliguric at this time. Continuous veno-venous hemodialysis (CVVHD) was stopped yesterday. Electrolyte and acid- base status is within the acceptable range. I will continue to monitor for renal recovery. 2. Hypokalemia. Potassium level is improved now and is within the acceptable range. 3. Metabolic acidosis. This has resolved now. Bicarbonate level is within the acceptable range. 4. Hypocalcemia. The patient was given another dose of IV calcium gluconate. 5. Anemia. The patient will be given one more unit of packed red blood cells (PRBC) transfusion today. 6. Diabetes mellitus type 2 insulin dependent. Continue current insulin regimen. Glucose levels are within the acceptable range. 7. Disposition: The patient is nonoliguric. I am hopeful that her renal function will improve over the next few days. I am going to remove the Winslow catheter and the patient is being downgraded out of intensive care unit (ICU) into the progressive care unit (PCU). CLOVIS
[2020-08-31] MEDS ORDERED: FUROSEMIDE 40MG/4ML VIAL (J1940) IV ONE (12:00)
--- NOTE | 2020-08-31 14:31 | IPN ---
DATE: 08/31/2020 SUBJECTIVE: The patient was seen and examined at the bedside today morning. She was downgraded to TIC yesterday. She is afebrile and hemodynamically stable. She is non-oliguric at this time, however I do not see any improvement in the creatinine level. Electrolytes are within the acceptable range at this time. She denies any active complaints. She does report some loose stools but she denies any nausea or vomiting. OBJECTIVE: Vital Signs: Temperature is 98 degrees Fahrenheit, blood pressure is 170/98, pulse is 75, respiratory rate of 18, saturating 94% on room air. Intake and Output urine output recorded as 800 mL yesterday, 200 mL so far today since overnight. Weight on the bed scale is 96.5 kg. which is stable since yesterday. PHYSICAL EXAMINATION: GENERAL APPEARANCE: The patient is awake, alert, oriented x3, laying in bed in no apparent distress. HEAD AND NECK: Extraocular muscles intact. Pupils are equally round and reactive to light. Mucous membranes are moist. Neck is supple. She has a right IJ dialysis catheter. CARDIOVASCULAR: S1, S2 regular rate. EXTREMITIES: No edema in the bilateral lower extremities. RESPIRATORY: Chest is clear to auscultation bilaterally. Bilaterally clear anteriorly. No rales, no rhonchi. ABDOMEN: Soft, positive bowel sounds, nontender, no organomegaly. MUSCULOSKELETAL: No clubbing or cyanosis. Pulses are 2+. PACKAGING ASSOCIATE: No focal deficits. Strength is 5/5 in all extremities. LABORATORY REVIEW: CBC showed a WBC of 7, hemoglobin 8.6, platelet count 198. BMP showed sodium 138, potassium 3.2, chloride 103, bicarbonate 23, BUN 47, creatinine is 5.6. Calcium is 9.2, phosphorous 3.3, magnesium is 1.9. CURRENT INPATIENT MEDICATIONS: The patients medications were all reviewed by myself. I gave her a dose of Lasix 40 mg IV times one dose. She was also given a dose of potassium chloride 40 mEq p.o. times one dose. ASSESSMENT AND PLAN: 1. Acute renal failure - The patient is non-oliguric at this time, however creatinine is still not plateaued. Electrolytes and acid base are within the acceptable range. I would hold off on further dialysis. She will be monitored on a daily basis for need of hemodialysis. I am hopeful that her renal function should recover over the next few days. 2. Hypokalemia - The patient was given a dose of 40 mEq of KCL. 3. Hypertension - blood pressures are getting elevated. She was on ARB+ diuretic as an outpatient. I started her on Amlodipine 5 mg p.o. daily. She continues to be on Metoprolol as well. 4. Diabetes mellitus type 2 she is on insulin. Glucose level is evident in the acceptable range. MTDD
[2020-09-01] VITALS (7 sets, daily range): BP systolic 148–174; BP diastolic 80–108
[2020-09-01] MEDS: LEVOTHYROXINE 25MCG TABLET (0.025MG) PO SCH (05:31)
[2020-09-01] MEDS: LEVOTHYROXINE 150MCG TABLET (0.15MG) PO SCH (05:31)
[2020-09-01 05:54] LABS: BASO % 0.5 % (0.0-1.0); EOS # 0.3 10^3/uL (0.0-0.5); EOS % 4.3 % (0.0-3.0); HEMATOCRIT 24.7 % (36.0-47.0); HEMOGLOBIN 8.4 g/dl (12.0-15.5); LYMPH # 1.5 10^3/uL (1.5-5.0); LYMPH % 20.8 % (24.0-44.0); MEAN CORPUSCULAR HEMOGLOBIN 29.9 pg (27.0-33.0); MEAN CORPUSCULAR VOLUME 87.9 fl (80.0-96.0); MONO # 0.7 10^3/uL (0.0-0.8); MONO % 9.7 % (0.0-5.0); NEUTROPHILS # 4.6 10^3/uL (1.5-8.5); NEUTROPHILS % 62.7 % (36.0-66.0); PLATELET COUNT, AUTOMATED 221 10^3/uL (150-450); RED BLOOD COUNT 2.81 10^6/uL (4.00-5.40); WHITE BLOOD COUNT 7.4 10^3/uL (4.0-10.0)
[2020-09-01 06:20] LABS: CALCIUM LEVEL 6.9 MG/DL (8.5-10.1); CREATININE FOR GFR 6.08 MG/DL (0.55-1.30); GLOMERULAR FILTRATION RATE 7.7 (>51); MAGNESIUM LEVEL 1.7 MG/DL (1.8-2.4)
--- NOTE | 2020-09-01 07:11 | IPNPDOC ---
Text Note Date of Service The patient was seen on 08/31/20. NOTE Subjective: Feels good , no complaints. Denies any nausea or vomiting today, No diarrhea. Making good urine after a dose of lasix. Patient had an inadvertent COVID exposure so is now on COVID precautions. Physical exam Vitals as below General Exam: Patient laying down in bed in no discomfort. Alert and oriented Eye Exam: PERRLA ENT Exam: Normocephalic Atraumatic. Moist mucous membranes. Anicteric eyes Neck Exam: Supple, JVD present Chest Exam: clear to auscultation. Heart Exam: Normal S1 and S2 , regular rhythm and rate, no rub, murmur or gallop Telemetry: Sinus Abdomen Exam: Soft, non tender,No rebound or rigidity, bowel sounds normal. Extremity Exam: No Cyanosis , no edema Skin Exam: Nl turgor and temperature Neuro Exam: Strength at 5/5 X4 ext, Cranial Nerves 3-12 NL, no focal neurodeficits. Psych Exam: Mental status NL, alert, oriented 3 Patient is 51 years old female with past history of diabetes, hypertension, hypothyroidism presented hospital with nausea, vomiting and diarrhea. Patient stated that around 7 days ago she developed upper respiratory symptoms started as sinusitis, was not eating well as had poor appetite. She then she developed multiple episodes of vomiting 3 days ago associated with nausea and some diarrhea, unable to keep anything down. SHe was ound to be in FESTUS , with severe metabolic acidosis and elevated ketones and elevated lactate. Acute renal failure with severe high anion gap and non anion gap metabolic aci dosis and hyperkalemia prerenal/ ATN Increasing urine output. though creatinine still rising Severe electrolyte abnormalities Hypokalemia, hypomagnesemia, hypocalcemia Now corrected Anemia Drop in HH without any bleeding probably dilutional and from FESTUS. No overt bleeding noted. Abdominal exam benign received 3 unit of PRBC. iron studies, vit b12 and folate does not reveal any gross deficiencies though this was drawn after 2 units of PRBC transfusion. stool for occult blood negative Will try to get old blood test results from [facility]. Metabolic acidosis Combined NAGMA and HAGMA now resolved. Elevated ketones possibly due to starvation +/- DKA However may have had DKA also though on admission sugars not elevated as has not been eating for 3 to 4 days. Diabetes mellitus type 2 in obese FS Ac and HS Levemir, lispro. Hypertension continue metoprolol with hold parameters. Hypothyroidism. Status post thyroidectomy. Synthroid GERD PPI VS,Fishbone, I+O VS, Fishbone, I+O Laboratory Tests 08/30/20 17:35 08/31/20 06:20 Vital Signs Date Time Temp Pulse Resp B/P (MAP) Pulse Ox O2 Delivery O2 Flow Rate FiO2 08/31/20 11:58 98.0 75 18 170/98 (122) 94 Room Air 08/29/20 11:00 1.0 l I&O- Last 24 Hours up to 6 AM 08/31/20 06:00 Intake Total 1070 ml Output Total 450 ml Balance 620 ml JULIA KEY MD Aug 31, 2020 12:02
[2020-09-01] MEDS ORDERED: MAG SULF 1GM/100ML (MAG RUN) 1 GM in IV 1 EA IV ONE (08:00)
[2020-09-01] MEDS ORDERED: POTASSIUM CHLORIDE 10 MEQ SR TABLET PO ONE ×2 (09:00→14:00)
[2020-09-01] MEDS: amLODIPine 5 MG TAB PO SCH (10:21)
[2020-09-01] MEDS: METOPROLOL SUCC (TopROL XL) 50MG **XL** TAB PO SCH (10:22)
[2020-09-01] MEDS: HEPARIN SOD (PORCINE) 5000UNITS/ML 1ML VIAL/SYRINGE SC SCH ×2 (10:23→21:29)
[2020-09-01] MEDS: PANTOPRAZOLE 40MG VIAL (C9113 PER 1) IV SCH ×2 (10:23→21:29)
[2020-09-01] MEDS: LEVEMIR (INSULIN DETEMIR) 1 UNITS/0.01ML SC SCH (10:25)
[2020-09-01] MEDS: HumaLOG INSULIN (NovoLOG) PER UNIT SC SCH ×4 (10:26→19:50)
--- NOTE | 2020-09-01 12:42 | IPNPDOC ---
Text Note Date of Service The patient was seen on 09/01/20. NOTE Subjective: Feels good , no complaints. Denies any nausea or vomiting today, No diarrhea. Making good urine after a dose of lasix. Patient had an inadvertent COVID exposure so is now on COVID precautions. Physical exam Vitals as below General Exam: Patient laying down in bed in no discomfort. Alert and oriented Eye Exam: PERRLA ENT Exam: Normocephalic Atraumatic. Moist mucous membranes. Anicteric eyes Neck Exam: Supple, JVD present Chest Exam: clear to auscultation. Heart Exam: Normal S1 and S2 , regular rhythm and rate, no rub, murmur or gallop Telemetry: Sinus Abdomen Exam: Soft, non tender,No rebound or rigidity, bowel sounds normal. Extremity Exam: No Cyanosis , no edema Skin Exam: Nl turgor and temperature Neuro Exam: Strength at 5/5 X4 ext, Cranial Nerves 3-12 NL, no focal neurodeficits. Psych Exam: Mental status NL, alert, oriented 3 Patient is 51 years old female with past history of diabetes, hypertension, hypothyroidism presented hospital with nausea, vomiting and diarrhea. Patient stated that around 7 days ago she developed upper respiratory symptoms started as sinusitis, was not eating well as had poor appetite. She then she developed multiple episodes of vomiting 3 days ago associated with nausea and some diarrhea, unable to keep anything down. SHe was ound to be in FESTUS , with severe metabolic acidosis and elevated ketones and elevated lactate. Acute renal failure with severe high anion gap and non anion gap metabolic aci dosis and hyperkalemia prerenal/ ATN Increasing urine output. though creatinine still rising Electrolytes ok, no signs of uremia. Severe electrolyte abnormalities Hypokalemia, hypomagnesemia, hypocalcemia now better, being corrected as necessary. Anemia Drop in HH without any bleeding probably dilutional and from FESTUS. No overt bleeding noted. Abdominal exam benign received 3 unit of PRBC. iron studies, vit b12 and folate does not reveal any gross deficiencies though this was drawn after 2 units of PRBC transfusion. stool for occult blood negative Will try to get old blood test results from [facility]. Metabolic acidosis Combined NAGMA and HAGMA now resolved. Elevated ketones possibly due to starvation +/- DKA However may have had DKA also though on admission sugars not elevated as has not been eating for 3 to 4 days. Diabetes mellitus type 2 in obese FS Ac and HS Levemir, lispro. Hypertension continue metoprolol with hold parameters. Hypothyroidism. Status post thyroidectomy. Synthroid GERD PPI VS,Fishbone, I+O VS, Fishbone, I+O Laboratory Tests 09/01/20 05:40 Vital Signs Date Time Temp Pulse Resp B/P (MAP) Pulse Ox O2 Delivery O2 Flow Rate FiO2 09/01/20 12:00 97.5 84 18 174/98 (123) 98 Room Air 08/29/20 11:00 1.0 I&O- Last 24 Hours up to 6 AM 09/01/20 06:00 Intake Total 1680 ml Output Total 2000 ml Balance -320 ml JULIA KEY MD Sep 01, 2020 12:42
[2020-09-01] MEDS ORDERED: amLODIPine 5 MG TAB PO ONE (16:45)
[2020-09-01] MEDS: CARVedilol 6.25 MG TAB PO SCH (23:00)
[2020-09-02] VITALS (8 sets, daily range): BP systolic 140–200; BP diastolic 80–118
[2020-09-02] MEDS: LEVOTHYROXINE 150MCG TABLET (0.15MG) PO SCH (05:25)
[2020-09-02] MEDS ORDERED: amLODIPine 10 MG TAB As Ordered ONE (05:36)
[2020-09-02] MEDS: amLODIPine 10 MG TAB PO SCH (05:37)
[2020-09-02] MEDS: CARVedilol 6.25 MG TAB PO SCH ×2 (05:38→20:07)
[2020-09-02 05:55] LABS: BASO % 0.5 % (0.0-1.0); EOS # 0.4 10^3/uL (0.0-0.5); EOS % 4.5 % (0.0-3.0); HEMATOCRIT 25.4 % (36.0-47.0); HEMOGLOBIN 8.6 g/dl (12.0-15.5); LYMPH # 1.4 10^3/uL (1.5-5.0); LYMPH % 17.3 % (24.0-44.0); MEAN CORPUSCULAR HEMOGLOBIN 29.7 pg (27.0-33.0); MEAN CORPUSCULAR HGB CONC 33.9 g/dl (32.0-36.5); MEAN CORPUSCULAR VOLUME 87.6 fl (80.0-96.0); MONO # 0.8 10^3/uL (0.0-0.8); MONO % 9.4 % (0.0-5.0); NEUTROPHILS # 5.3 10^3/uL (1.5-8.5); NEUTROPHILS % 65.3 % (36.0-66.0); PLATELET COUNT, AUTOMATED 226 10^3/uL (150-450); WHITE BLOOD COUNT 8.1 10^3/uL (4.0-10.0)
[2020-09-02 06:23] LABS: CREATININE FOR GFR 6.11 MG/DL (0.55-1.30); GLOMERULAR FILTRATION RATE 7.7 (>51); MAGNESIUM LEVEL 1.7 MG/DL (1.8-2.4); POTASSIUM SERUM 3.2 MEQ/L (3.5-5.1)
[2020-09-02] MEDS ORDERED: MAG SULF 1GM/100ML (MAG RUN) 1 GM in IV 1 EA IV ONE (07:00)
[2020-09-02] MEDS ORDERED: hydrALAZINE 20MG/ML 1ML VIAL (J0360 PER 20MG) IV ONE (07:00)
[2020-09-02] MEDS ORDERED: POTASSIUM CHLORIDE 10 MEQ SR TABLET PO ONE (07:00)
[2020-09-02] MEDS: LEVEMIR (INSULIN DETEMIR) 1 UNITS/0.01ML SC SCH (08:30)
[2020-09-02] MEDS: HumaLOG INSULIN (NovoLOG) PER UNIT SC SCH ×4 (08:30→20:08)
[2020-09-02] MEDS: HEPARIN SOD (PORCINE) 5000UNITS/ML 1ML VIAL/SYRINGE SC SCH ×2 (08:31→20:08)
[2020-09-02] MEDS: PANTOPRAZOLE 40MG VIAL (C9113 PER 1) IV SCH ×2 (08:31→20:08)
[2020-09-02] MEDS ORDERED: IRON SUCROSE 100MG 5ML VIAL (J1756 PER 1MG) IV SCH (12:00)
[2020-09-02] MEDS ORDERED: DARBEPOETIN 100 MCG/0.5 ML *DIALYSIS* SYRINGE (J0882) IV SCH (12:00)
[2020-09-02] MEDS: ACETAMINOPHEN TAB 650MG DOSE (2X325MG) PO PRN (12:57)
[2020-09-02 13:12] LABS: HEMOGLOBIN A1c 5.8 %
[2020-09-02 13:38] LABS: CHOLESTEROL LEVEL 106 MG/DL (<200); CHOLESTEROL RISK RATIO 3.212 (<5); HDL CHOLESTEROL 33 MG/DL (>40); HEPATITIS B CORE ANTIBODY IGM NEGATIVE (NEGATIVE); HEPATITIS B SURFACE ANTIBODY NEGATIVE (POSITIVE); HEPATITIS B SURFACE ANTIGEN NEGATIVE (NEGATIVE); HEPATITIS C VIRUS ABY INDEX 0.1 INDEX (<0.8); LDL CHOLESTEROL 39 MG/DL (<100); NON-HDL-C 73 MG/DL; TRIGLYCERIDES LEVEL 170 MG/DL (<150)
--- NOTE | 2020-09-02 15:09 | IPN ---
DATE: 09/01/2020 SUBJECTIVE: Patient was seen and examined at the bedside today morning. She is afebrile and hemodynamically stable. She is oliguric. Creatinine has not plateaued, it is slowly trending up, however, her acid base and electrolytes are within the acceptable range. She was given a dose of I.V. Lasix yesterday. OBJECTIVE: VITAL SIGNS: Temperature 97.8 degrees Fahrenheit, blood pressure 162/100, pulse 82, respiratory rate 18, saturating 98% on room air. INTAKE AND OUTPUT: Urine output recorded as 1.4 liters yesterday and 1200 mL so far today since overnight. Weight in the bed scale is 96.6 kg. PHYSICAL EXAMINATION: GENERAL: Patient is awake, alert, oriented x3, lying in bed, in no apparent distress. HEAD AND NECK: She has a right IJ non-tunneled trial assist catheter. CARDIOVASCULAR: S1, S2, regular rate. No edema of the bilateral lower extremities. RESPIRATORY: Chest is clear to auscultation bilaterally. Bilateral equal air entry. No rales or rhonchi. ABDOMEN: Soft. Positive bowel sounds. Nontender. No organomegaly. MUSCULOSKELETAL: No clubbing or cyanosis. Pulses are 2+. HUMAN RESOURCES INTERN: No focal deficit. Power is 5/5 in all extremities. LABORATORY REVIEW: CBC showed WBC 7.4, hemoglobin 8.4, platelets 221,000. BMP showed sodium 138, potassium 3, chloride 104, bicarb 22, BUN 52, creatinine 6, glucose 144, calcium 6.9. Magnesium 1.7. CURRENT INPATIENT MEDICATIONS: Patient's medications were all reviewed by myself. Her Amlodipine dose has already been increased to 10 mg p.o. daily. She was given a dose of potassium chloride 40 mEq in the morning and another dose of 20 mEq in the afternoon. No other significant change in the medications today as compared with yesterday. ASSESSMENT AND PLAN: 1. Acute nonoliguric renal failure: Patient has not been dialyzed ever since the CVVHD was stopped. She is making good amount of urine. Electrolytes and acid base status is within the acceptable range, however, creatinine has not plateaued. I would wait for her renal recovery and continue to monitor her daily for any need of renal replacement therapy. 2. Hypokalemia: Patient was already given KCl 40 mEq in the morning, 20 mEq was given in the afternoon. 3. Hypertension: Blood pressures are still elevated. She is on Metoprolol and Amlodipine. Amlodipine dose was increased by the medical team. I would further adjust her beta-martina or add Hydralazine if needed. Avoid use of angiotensin receptor blockers or ANDRE inhibitors because of acute renal failure. 4. Diabetes mellitus type 2: Continue current dose of insulin. DISPOSITION: If patients renal functions are improving, then she will be discharged home and she will need to follow-up as an outpatient. Patient still is not clinically stable to be discharged home because creatinine is still rising. MTDD
[2020-09-03] VITALS (7 sets, daily range): BP systolic 124–172; BP diastolic 72–92
[2020-09-03] MEDS: LEVOTHYROXINE 25MCG TABLET (0.025MG) PO SCH (05:01)
[2020-09-03] MEDS: LEVOTHYROXINE 150MCG TABLET (0.15MG) PO SCH (05:01)
[2020-09-03] MEDS: amLODIPine 10 MG TAB PO SCH (05:11)
[2020-09-03] MEDS: CARVedilol 6.25 MG TAB PO SCH ×2 (05:11→20:59)
[2020-09-03 05:24] LABS: BASO # 0.1 10^3/uL (0.0-0.2); BASO % 0.6 % (0.0-1.0); EOS # 0.3 10^3/uL (0.0-0.5); EOS % 3.3 % (0.0-3.0); HEMATOCRIT 26.2 % (36.0-47.0); HEMOGLOBIN 8.8 g/dl (12.0-15.5); LYMPH % 23.1 % (24.0-44.0); MEAN CORPUSCULAR HEMOGLOBIN 29.5 pg (27.0-33.0); MEAN CORPUSCULAR HGB CONC 33.6 g/dl (32.0-36.5); MEAN CORPUSCULAR VOLUME 87.9 fl (80.0-96.0); MONO # 0.9 10^3/uL (0.0-0.8); MONO % 9.9 % (0.0-5.0); NEUTROPHILS # 5.2 10^3/uL (1.5-8.5); NEUTROPHILS % 59.8 % (36.0-66.0); PLATELET COUNT, AUTOMATED 220 10^3/uL (150-450); RED BLOOD COUNT 2.98 10^6/uL (4.00-5.40); WHITE BLOOD COUNT 8.8 10^3/uL (4.0-10.0)
[2020-09-03 05:49] LABS: CALCIUM LEVEL 7.2 MG/DL (8.5-10.1); CREATININE FOR GFR 4.09 MG/DL (0.55-1.30); GLOMERULAR FILTRATION RATE 12.2 (>51); MAGNESIUM LEVEL 1.7 MG/DL (1.8-2.4); POTASSIUM SERUM 3.1 MEQ/L (3.5-5.1)
[2020-09-03] MEDS: HumaLOG INSULIN (NovoLOG) PER UNIT SC SCH ×4 (07:56→21:00)
[2020-09-03] MEDS: LEVEMIR (INSULIN DETEMIR) 1 UNITS/0.01ML SC SCH ×2 (07:56→07:58)
[2020-09-03] MEDS: PANTOPRAZOLE 40MG VIAL (C9113 PER 1) IV SCH ×2 (07:57→20:58)
[2020-09-03] MEDS: HEPARIN SOD (PORCINE) 5000UNITS/ML 1ML VIAL/SYRINGE SC SCH ×2 (07:57→20:57)
[2020-09-03] MEDS: POTASSIUM CHLORIDE 10 MEQ SR TABLET PO SCH (10:06)
--- NOTE | 2020-09-03 11:10 | IPNPDOC ---
Text Note Date of Service The patient was seen on 09/02/20. NOTE Subjective: Feels good , no complaints. Denies any nausea or vomiting today, No diarrhea. Making good urine after a dose of lasix. Patient had an inadvertent COVID exposure so is now on COVID precautions. COVID test negative. Will be going for HD today Physical exam Vitals as below General Exam: Patient laying down in bed in no discomfort. Alert and oriented Eye Exam: PERRLA ENT Exam: Normocephalic Atraumatic. Moist mucous membranes. Anicteric eyes Neck Exam: Supple, JVD present Chest Exam: clear to auscultation. Heart Exam: Normal S1 and S2 , regular rhythm and rate, no rub, murmur or gallop Telemetry: Sinus Abdomen Exam: Soft, non tender,No rebound or rigidity, bowel sounds normal. Extremity Exam: No Cyanosis , no edema Skin Exam: Nl turgor and temperature Neuro Exam: Strength at 5/5 X4 ext, Cranial Nerves 3-12 NL, no focal neurodeficits. Psych Exam: Mental status NL, alert, oriented 3 Patient is 51 years old female with past history of diabetes, hypertension, hypothyroidism presented hospital with nausea, vomiting and diarrhea. Patient stated that around 7 days ago she developed upper respiratory symptoms started as sinusitis, was not eating well as had poor appetite. She then she developed multiple episodes of vomiting 3 days ago associated with nausea and some diarrhea, unable to keep anything down. SHe was ound to be in FESTUS , with severe metabolic acidosis and elevated ketones and elevated lactate. Acute renal failure with severe high anion gap and non anion gap metabolic acidosis and hyperkalemia prerenal/ ATN Increasing urine output. though creatinine still rising Electrolytes ok, no signs of uremia. Severe electrolyte abnormalities Hypokalemia, hypomagnesemia, hypocalcemia now better, being corrected as necessary. Anemia Drop in HH without any bleeding probably dilutional and from FESTUS. No overt bleeding noted. Abdominal exam benign received 3 unit of PRBC. iron studies, vit b12 and folate does not reveal any gross deficiencies though this was drawn after 2 units of PRBC transfusion. stool for occult blood negative Awaiting old blood test results from [facility]. Metabolic acidosis Combined NAGMA and HAGMA now resolved. Elevated ketones possibly due to starvation +/- DKA However may have had DKA also though on admission sugars not elevated as has not been eating for 3 to 4 days. Diabetes mellitus type 2 in obese FS Ac and HS Levemir, lispro. Hypertension continue metoprolol with hold parameters. Hypothyroidism. Status post thyroidectomy. Synthroid GERD PPI VS,Fishbone, I+O VS, Fishbone, I+O Laboratory Tests 09/03/20 05:11 Vital Signs Date Time Temp Pulse Resp B/P (MAP) Pulse Ox O2 Delivery O2 Flow Rate FiO2 09/03/20 07:52 97.8 102 16 124/72 (89) 97 Room Air 08/29/20 11:00 1.0 I&O- Last 24 Hours up to 6 AM 09/03/20 06:00 Intake Total 1080 ml Output Total 2450 ml Balance -1370 ml JULIA KEY MD Sep 03, 2020 11:10
--- NOTE | 2020-09-03 11:20 | IPN ---
DATE: 09/02/2020 SUBJECTIVE: Patient was seen and examined at the bedside today morning. Last 24 hours events were noted. Patient was getting more and more hypertensive. Systolic blood pressures were in the 200s. She was started on Carvedilol. She is already on Amlodipine. Patient is nonoliguric, however, there is no improvement in the creatinine, although the electrolytes are stable, her blood pressures are getting uncontrolled now. I discussed with the patient to do a session of hemodialysis, and she agreed to go for dialysis today. OBJECTIVE: VITAL SIGNS: Temperature 97.3 degrees Fahrenheit, blood pressure 142/85, pulse 103, respiratory rate 18 and saturating 97% on room air. INTAKE AND OUTPUT: Urine output recorded as 1200 mL yesterday and 950 mL so far today since overnight. Weight in the bed scale was 96.6 kg yesterday. PHYSICAL EXAMINATION: GENERAL: Patient is awake, alert, oriented x3, laying in bed, in no apparent distress. HEAD AND NECK: Extraocular muscles intact. Pupils equally round and reactive to light. Mucous membranes are moist. Neck is supple. She has a right IJ non-tunnel hemodialysis catheter. CARDIOVASCULAR: S1, S2, regular rate. Trace edema of the bilateral lower extremities. RESPIRATORY: Chest is clear to auscultation bilaterally. Bilateral equal air entry. No rales or rhonchi. ABDOMEN: Soft. Positive bowel sounds. Nontender. No organomegaly. MUSCULOSKELETAL: No clubbing or cyanosis. Pulses are 2+. [employer] BL[employer]: No focal deficit. Power is 5/5 in all extremities. LABORATORY REVIEW: CBC showed WBC 8.1, hemoglobin 8.6, platelets 226,000. Glucose 225. BMP showed sodium 138, potassium 3.2, chloride 105, bicarb 22, BUN 53, creatinine 6.1. Hemoglobin A1C 5.8. Calcium 7. Magnesium 1.7. CURRENT INPATIENT MEDICATIONS: Patient's medications were all reviewed by myself. She was given a dose of I.V. magnesium sulfate and she was also given potassium chloride 40 mEq times one dose. She was started on Carvedilol 6.25 mg p.o. twice a day yesterday. ASSESSMENT AND PLAN: 1. Acute nonoliguric renal failure: Patient's creatinine is still high and blood pressures are getting uncontrolled. She will be dialyzed today for 3 hours and 1 liter of fluid will be removed. Continue to monitor for renal recovery. 2. Hypertension: It was uncontrolled overnight, continue Amlodipine 10 mg daily and Carvedilol 6.25 mg p.o. twice a day. She also required a dose of Hydralazine. If blood pressures remain high, then Carvedilol dose will be increased. No use of ANDRE inhibitors because of acute renal failure. 3. Recurrent hypokalemia: Continue current dose of potassium chloride 40 mEq. She will be dialyzed with a 4K bath, which will help improve her potassium level as well. 4. Anemia and acute renal failure: She will be started on Venofer and Aranesp with dialysis today. 5. Hypomagnesemia: She was already given I.V. magnesium sulfate. MTDD
[2020-09-03 13:41] LABS: APPEARANCE, URINE CLEAR (CLEAR); BACTERIA, URINE AUTO NEGATIVE (NEGATIVE); BILIRUBIN, URINE AUTO NEGATIVE (NEGATIVE); BLOOD, URINE BLOOD 1+ (NEGATIVE); COLOR, URINE STRAW (YELLOW); GLUCOSE, URINE (UA) AUTO NEGATIVE (NEGATIVE); KETONE, URINE AUTO NEGATIVE (NEGATIVE); LEUKOCYTE ESTERASE, URINE AUTO NEGATIVE (NEGATIVE); NITRITE, URINE AUTO NEGATIVE (NEGATIVE); PROTEIN, URINE AUTO NEGATIVE (NEGATIVE); RBC, URINE AUTO 4 /HPF (0-3); SPECIFIC GRAVITY URINE AUTO 1.004 (1.002-1.035); SQUAMOUS EPITHELIAL CELL UR AU 0 /HPF (0-6); UROBILINOGEN, URINE AUTO 0.2 mg/dL (0.0-2.0); WBC, URINE AUTO 1 /HPF (0-3)
--- NOTE | 2020-09-03 14:11 | IPNPDOC ---
Text Note Date of Service The patient was seen on 09/03/20. NOTE Subjective: Feels good , no complaints. Denies any nausea or vomiting today, No diarrhea. Patient had an inadvertent COVID exposure so is now on COVID precautions. COVID test negative at day 5 after exposure. will have to continue precaution for 14 days after exposure. Have not yet recieved previous blood work from [facility]. Wilber says her is going to [facility] today and will ask about it. Physical exam Vitals as below General Exam: Patient laying down in bed in no discomfort. Alert and oriented Eye Exam: PERRLA ENT Exam: Normocephalic Atraumatic. Moist mucous membranes. Anicteric eyes Neck Exam: Supple, JVD present Chest Exam: clear to auscultation. Heart Exam: Normal S1 and S2 , regular rhythm and rate, no rub, murmur or gallop Telemetry: Sinus Abdomen Exam: Soft, non tender,No rebound or rigidity, bowel sounds normal. Extremity Exam: No Cyanosis , no edema Skin Exam: Nl turgor and temperature Neuro Exam: Strength at 5/5 X4 ext, Cranial Nerves 3-12 NL, no focal neurodeficits. Psych Exam: Mental status NL, alert, oriented 3 Patient is 51 years old female with past history of diabetes, hypertension, hypothyroidism presented hospital with nausea, vomiting and diarrhea. Patient stated that around 7 days ago she developed upper respiratory symptoms started as sinusitis, was not eating well as had poor appetite. She then she developed multiple episodes of vomiting 3 days ago associated with nausea and some diarrhea, unable to keep anything down. SHe was ound to be in FESTUS , with severe metabolic acidosis and elevated ketones and elevated lactate. Acute renal failure with severe high anion gap and non anion gap metabolic acidosis and hyperkalemia prerenal/ ATN Increasing urine output. though creatinine still rising Electrolytes ok, no signs of uremia. HD on 09/02/20 Severe electrolyte abnormalities on admission Hypokalemia, hypomagnesemia, hypocalcemia now corrected Anemia Drop in HH without any bleeding probably dilutional and from FESTUS. No overt bleeding noted. Abdominal exam benign received 3 unit of PRBC. iron studies, vit b12 and folate does not reveal any gross deficiencies though this was drawn after 2 units of PRBC transfusion. stool for occult blood negative Awaiting old blood test results from [facility]. Metabolic acidosis Combined NAGMA and HAGMA now resolved. Elevated ketones possibly due to starvation +/- DKA However may have had DKA also though on admission sugars not elevated as has not been eating for 3 to 4 days. Diabetes mellitus type 2 in obese FS Ac and HS Levemir, lispro. Hypertension continue metoprolol with hold parameters. Hypothyroidism. Status post thyroidectomy. Synthroid GERD PPI VS,Fishbone, I+O VS, Fishbone, I+O Laboratory Tests 09/03/20 05:11 Vital Signs Date Time Temp Pulse Resp B/P (MAP) Pulse Ox O2 Delivery O2 Flow Rate FiO2 09/03/20 12:15 97.6 98 16 136/78 (97) 99 Room Air 08/29/20 11:00 1.0 I&O- Last 24 Hours up to 6 AM 09/03/20 06:00 Intake Total 1080 ml Output Total 2450 ml Balance -1370 ml JULIA KEY MD Sep 03, 2020 14:11
[2020-09-04] VITALS: BP 138/82
[2020-09-04 04:00] VITALS: BP 140/86
[2020-09-04] MEDS: LEVOTHYROXINE 150MCG TABLET (0.15MG) PO SCH (06:22)
[2020-09-04 06:47] LABS: BASO # 0.1 10^3/uL (0.0-0.2); BASO % 0.7 % (0.0-1.0); EOS # 0.3 10^3/uL (0.0-0.5); EOS % 3.7 % (0.0-3.0); HEMATOCRIT 26.9 % (36.0-47.0); HEMOGLOBIN 8.7 g/dl (12.0-15.5); LYMPH % 24.6 % (24.0-44.0); MEAN CORPUSCULAR HEMOGLOBIN 28.9 pg (27.0-33.0); MEAN CORPUSCULAR HGB CONC 32.3 g/dl (32.0-36.5); MEAN CORPUSCULAR VOLUME 89.4 fl (80.0-96.0); MONO # 0.8 10^3/uL (0.0-0.8); MONO % 9.6 % (0.0-5.0); NEUTROPHILS # 4.5 10^3/uL (1.5-8.5); NEUTROPHILS % 56.7 % (36.0-66.0); PLATELET COUNT, AUTOMATED 227 10^3/uL (150-450); RED BLOOD COUNT 3.01 10^6/uL (4.00-5.40)
[2020-09-04 07:11] LABS: CALCIUM LEVEL 7.6 MG/DL (8.5-10.1); CREATININE FOR GFR 4.8 MG/DL (0.55-1.30); GLOMERULAR FILTRATION RATE 10.1 (>51); MAGNESIUM LEVEL 1.6 MG/DL (1.8-2.4); POTASSIUM SERUM 3.3 MEQ/L (3.5-5.1)
[2020-09-04 08:00] VITALS: BP 160/100
[2020-09-04] MEDS ORDERED: MAG SULF 1GM/100ML (MAG RUN) 1 GM in IV 1 EA IV ONE (09:00)
[2020-09-04] MEDS: HumaLOG INSULIN (NovoLOG) PER UNIT SC SCH ×2 (09:29→12:00)
[2020-09-04 09:30] VITALS: BP 160/100
[2020-09-04] MEDS: amLODIPine 10 MG TAB PO SCH (09:30)
[2020-09-04] MEDS: HEPARIN SOD (PORCINE) 5000UNITS/ML 1ML VIAL/SYRINGE SC SCH (09:30)
[2020-09-04] MEDS: CARVedilol 6.25 MG TAB PO SCH (09:30)
[2020-09-04] MEDS: PANTOPRAZOLE 40MG VIAL (C9113 PER 1) IV SCH (09:31)
[2020-09-04] MEDS: LEVEMIR (INSULIN DETEMIR) 1 UNITS/0.01ML SC SCH (09:31)
[2020-09-04] MEDS: POTASSIUM CHLORIDE 10 MEQ SR TABLET PO SCH (09:32)
[2020-09-04] MEDS ORDERED: POTA1TAB14 PO (12:08)
[2020-09-04] MEDS ORDERED: AMLO1TAB25 PO (12:08)
[2020-09-04] MEDS ORDERED: INSULANT SC (12:11)
--- NOTE | 2020-09-05 16:56 | DS.PDOC ---
Discharge Summary General Date of Admission Aug 27, 2020 at 04:46 Date of Discharge 09/04/20 Discharge Summary PROCEDURES PERFORMED DURING STAY: Trialysis catheter placement and removal. DISCHARGE DIAGNOSES: FESTUS due to ATN requiring HD Severe Metabolic acidosis Severe Ketosis starvation ketosis vs diabetic ketoacidosis Multiple electrolyte abnormalities. Hypokalemia, hypomagnesemia, hypocalcemia Anemia SECONDARY DIAGNOSIS: Diabetes, hypertension, hypothyroidism, GERD COMPLICATIONS/CHIEF COMPLAINT: SOB. HOSPITAL COURSE: Patient is 51 years old female with past history of diabetes, hypertension, hypothyroidism presented hospital with nausea, vomiting and diarrh ea. Patient stated that around 7 days ago she developed upper respiratory symptoms started as sinusitis, was not eating well as had poor appetite. She then she developed multiple episodes of vomiting 3 days ago associated with nausea and some diarrhea, unable to keep anything down. She was found to be in FESTUS , with severe metabolic acidosis and elevated ketones and elevated lactate. Patient was started on CRRT then transferred to HD. During hospitalization she had an inadvertent COVID exposure so she needs to be on Quarantine till 09/10/20. She has started making good amounts of urine. Her renal function is slowly improving no normal electrolytes, no acidosis no signs of fluid overload so she was discharged home to follow up closely nephrology. Acute renal failure with severe high anion gap and non anion gap metabolic acidosis and hyperkalemia prerenal/ ATN Increasing urine output. though creatinine still rising Electrolytes ok, no signs of uremia. Last HD on 09/02/20 Severe electrolyte abnormalities on admission Hypokalemia, hypomagnesemia, hypocalcemia now corrected Anemia Drop in HH without any bleeding probably dilutional and from FESTUS. No overt bleeding noted. Abdominal exam benign received 3 unit of PRBC. iron studies, vit b12 and folate does not reveal any gross deficiencies though this was drawn after 2 units of PRBC transfusion. stool for occult blood negative Awaiting old blood test results from [facility]. Metabolic acidosis Combined NAGMA and HAGMA now resolved. Elevated ketones possibly due to starvation +/- DKA However may have had DKA also though on admission sugars not elevated as has not been eating for 3 to 4 days. Diabetes mellitus type 2 in obese FS Ac and HS Levemir, lispro. Hypertension continue metoprolol with hold parameters. Hypothyroidism. Status post thyroidectomy. Synthroid GERD PPI DISCHARGE MEDICATIONS: Please see below. ALLERGIES: Please see below. PHYSICAL EXAMINATION ON DISCHARGE: VITAL SIGNS: Please see below. General Exam: Patient laying down in bed in no discomfort. Alert and oriented Eye Exam: PERRLA ENT Exam: Normocephalic Atraumatic. Moist mucous membranes. Anicteric eyes Neck Exam: Supple, JVD present Chest Exam: clear to auscultation. Heart Exam: Normal S1 and S2 , regular rhythm and rate, no rub, murmur or gallop Telemetry: Sinus Abdomen Exam: Soft, non tender,No rebound or rigidity, bowel sounds normal. Extremity Exam: No Cyanosis , no edema Skin Exam: Nl turgor and temperature Neuro Exam: Strength at 5/5 X4 ext, Cranial Nerves 3-12 NL, no focal neurodeficits. Psych Exam: Mental status NL, alert, oriented 3 LABORATORY DATA: Please see below. ACTIVITY: [As tolerated]. DIET: carb consistent DISPOSITION: 01 Home, Self-Care. DISCHARGE INSTRUCTIONS: follow up with Dr Garay on 09/10/30 DISCHARGE CONDITION: [Stable]. TIME SPENT ON DISCHARGE: 35 minutes. Vital Signs/I&Os Vital Signs Date Time Temp Pulse Resp B/P (MAP) Pulse Ox O2 Delivery O2 Flow Rate FiO2 09/04/20 09:30 111 160/100 09/04/20 08:00 97.7 16 96 Room Air I&O- Last 24 Hours up to 6 AM 09/05/20 06:00 Intake Total 600 ml Output Total 800 ml Balance -200 ml Laboratory Data Labs 24H Laboratory Tests 2 09/05/20 09:45: Lab Scanned Report Miscellaneous Lab Microbiology Microbiology 08/30/20 Stool Occult Blood (MIRANDA) - Final, Complete 08/27/20 Urine Culture - Final, Complete 08/27/20 Blood Culture - Final, Complete NO GROWTH AFTER 5 DAYS 08/27/20 Respiratory Virus Panel (PCR) (MIRANDA) - Final, Complete 08/27/20 Blood Culture - Final, Complete NO GROWTH AFTER 5 DAYS Discharge Medications Scheduled Amlodipine Besylate (Amlodipine Besylate) 10 Mg Tablet, 10 MG PO DAILY Insulin Glargine (Lantus) 1 Units/0.01 Ml Susp, 10 UNITS SC DAILY Hold if Sugar < 150 Levothyroxine Sodium (Synthroid) 150 Mcg Tablet, 150 MCG PO Q2D, (Reported) Levothyroxine Sodium (Synthroid) 175 Mcg Tablet, 175 MCG PO Q2D, (Reported) Metoprolol Succinate (Metoprolol Succinate) 50 Mg Tab.er.24h, 50 MG PO DAILY, (Reported) Multivitamins (Thera M Plus Tablet) 1 Tab Tab, 1 TAB PO DAILY, (Reported) Omeprazole (Omeprazole) 20 Mg Cap, 20 MG PO DAILY, (Reported) Potassium Chloride (Potassium Chloride) 20 Meq Tablet.er, 40 MEQ PO DAILY Scheduled PRN Acetaminophen (Tylenol) 325 Mg Tablet, 650 MG PO Q4H PRN for HEADACHE OR PAIN, (Reported) Albuterol Sulfate (Proair Hfa) 8.5 Gm Hfa.aer.ad, 2 PUFF INH QID PRN for SHOR TNESS OF BREATH, (Reported) Miscellaneous Medications [Patient Comment] , (Reported) PATIENT UNSURE OF WHICH SYNTHROID WAS LAST TAKEN Allergies Coded Allergies: No Known Allergies (Verified , 08/16/18) JULIA KEY MD Sep 05, 2020 16:56
--- NOTE | 2020-09-06 09:01 | IPN ---
DATE: 09/03/2020 SUBJECTIVE: Patient was seen and examined at the bedside today morning. She is afebrile, hemodynamically stable. Blood pressures are better controlled today. She was dialyzed yesterday. One liter of fluid was removed. She tolerated hemodialysis procedure well. Patient is nonoliguric. OBJECTIVE: Vital Signs: Temperature is 97.8 degrees Fahrenheit, blood pressure 124/72, pulse is 102, respiratory rate of 16, saturating 97% on room air. Intake and output: Urine output recorded is 1.3 liters yesterday. Ultrafiltration with hemodialysis was 1 liter. Weight in the bed scale is not available. PHYSICAL EXAMINATION: GENERAL: Patient is awake, alert, oriented times three, lying in bed in no apparent distress. HEAD AND NECK: Extraocular muscles intact. Pupils equally round and reactive to light. Mucous membranes are moist. Neck is supple. She has a right internal jugular (IJ) dialysis catheter. CARDIOVASCULAR: S1, S2, regular rate. No edema of the bilateral lower extremities. RESPIRATORY: Chest is clear to auscultation bilaterally. Bilateral equal air entry. No rales or rhonchi. ABDOMEN: Soft. Positive bowel sounds. Nontender. No organomegaly. MUSCULOSKELETAL: No clubbing or cyanosis. Pulses are 2+. CENTRAL NERVOUS SYSTEM: No focal deficit. Power is 5/5 in all extremities. LABORATORY REVIEW: CBC showed a WBC 8.8, hemoglobin 8.8, platelets are 220. BMP showed sodium 139, potassium 3.1, chloride 105, bicarbonate 26, BUN 29, creatinine is 4, calcium 7.2, magnesium 1.7. CURRENT INPATIENT MEDICATIONS: Patient's medications were all reviewed by myself. No significant change in the medications today as compared with yesterday. I gave her another dose of potassium chloride 40 mEq by mouth times one dose. ASSESSMENT AND PLAN: 1. Acute nonoliguric renal failure. Patient's urine output is improving. She was dialyzed yesterday. I will monitor her renal function. If the creatinine plateaus or starts getting better, then the catheter will be removed and she will need to followup as outpatient. 2. Hypokalemia. Despite acute renal failure, patient is hypokalemic. She is requiring daily potassium. I have given her another dose of 40 mEq by mouth today. 3. Anemia and acute renal failure. She has been started on Aranesp and Venofer with dialysis. She was given one dose yesterday. Hemoglobin is better today as compared with yesterday. 4. Hypertension. Blood pressure is better controlled today with fluid removal during dialysis and increasing the antihypertensive regimen. Continue current dose of amlodipine 10 mg by mouth daily and Coreg 6.25 mg by mouth twice a day. 5. Diabetes mellitus, type 2. She is currently on insulin sliding scale and Levemir. Glucose levels are well controlled with the current regimen. DISPOSITION: Patient is still not clear to be discharged home. She will be evaluated tomorrow morning for any need of hemodialysis. BRADD
--- NOTE | 2020-09-06 09:04 | IPN ---
DATE: 09/04/2020 SUBJECTIVE: Patient was seen and examined at the bedside today morning. She is afebrile, hemodynamically stable. She is nonoliguric. Her blood pressure is better controlled now. She was dialyzed to days ago. So far her creatinine is still slowly trending up, however, her acid base status and potassium is within the acceptable range, she actually has hypokalemia despite oral potassium. Patient is feeling better. She still has temporary dialysis catheter in the right IJ. She denies any nausea, vomiting, chest pain, shortness of breath, leg edema. OBJECTIVE: VITAL SIGNS: Temperature 97.7 degrees Fahrenheit, blood pressure 160/100, pulse 111, respiratory rate 16, saturating 96% on room air. INTAKE AND OUTPUT: Urine output recorded as 1.1 liters yesterday, 800 mL so far today since overnight. Weight in bed scale is 97.1 kg. PHYSICAL EXAMINATION: GENERAL: The patient is awake, alert and oriented x3, lying in bed, in no apparent distress. HEAD AND NECK: Extraocular muscles intact. Pupils equally round and reactive to light. Mucous membranes are moist. Neck is supple. She has a right IJ non-tunnel hemodialysis catheter. CARDIOVASCULAR: S1, S2. Regular rate. No edema of the bilateral lower extremities. RESPIRATORY: Chest is clear to auscultation bilaterally. Bilateral equal air entry. No rales or rhonchi. ABDOMEN: Soft, positive bowel sounds, nontender. No organomegaly. MUSCULOSKELETAL: No clubbing or cyanosis. Pulses are 2+. LABORATORY REVIEW: CBC showed WBC 8, hemoglobin 8.7, platelets 227,000. BMP showed sodium 137, potassium 3.3, chloride 105, bicarb 23, BUN 37, creatinine 4.8, calcium 7.6, magnesium 1.6. CURRENT INPATIENT MEDICATIONS: Patient's medications were all reviewed by myself. She continues to be on potassium chloride 40 mEq p.o. daily. No significant change in the medications today as compared with yesterday. ASSESSMENT AND PLAN: 1. Acute nonoliguric renal failure: Patient's last dialysis was two days ago. She is making more than a liter of urine a day. Her creatinine is slowly trending up, however, acid base status and electrolytes are within the acceptable range. I am going to hold off on further dialysis. Patient's right IJ temporary dialysis catheter will be removed. She will be seen as an outpatient within a week after discharge from the hospital and if the labs show improvement, she will continue close follow-up. Otherwise if there is no improvement or if she develops electrolyte acid base or fluid abnormalities, then she will get a tunnel dialysis catheter and start hemodialysis as an outpatient. 2. Hypokalemia: Patient continues to be on potassium chloride 40 mEq p.o. daily. 3. Anemia associated with acute renal failure and iron deficiency: Patient was given Venofer with dialysis. She was also started on Aranesp with dialysis; she only received one dose so far. There is no urgent need of a blood transfusion, however if anemia gets worse, she will be started on ARLENE as an outpatient. 4. Hypertension: Blood pressure is controlled at this time with current dose of Amlodipine and Carvedilol. Avoid use of ANDRE inhibitors or angiotensin receptor blockers. 5. Diabetes mellitus type 2 insulin dependent: Glucose level is controlled with the current dose of insulin Levemir and sliding scale. 6. Hypothyroidism: Okay to continue current dose of Levothyroxine on discharge from the hospital. DISPOSITION: Patient is okay to be discharged from nephrology standpoint. She was advised to follow-up in the nephrology clinic within one week after discharge from the hospital. CLOVIS
--- NOTE | 2020-09-08 09:56 | RO ---
INDICATION: Hemodialysis and central venous access. PREPROCEDURE DIAGNOSIS: Acute renal failure. POSTPROCEDURE DIAGNOSIS: Acute renal failure. PROCEDURE: Central line insertion for hemodialysis catheter. ATTENDING PHYSICIAN: Dr. Meredith Braga. CONSENT: Consent was obtained from the patient prior to the procedure. Indication, risks, and benefits were explained at length. PROCEDURE SUMMARY: A central line insertion practice form was completed by independent observer. A time out was performed. Full sterile technique was maintained throughout the procedure including surgical cap, mask, protective eyewear, full gown, and sterile gloves. The patient was placed in Trendelenburg position. The right neck region was prepped using chlorhexidine scrub and draped in sterile fashion using a full drape and sterile probe cover employed. The right internal jugular vein was identified using the ultrasound. Anesthesia was achieved using 1% lidocaine. Using real-time real time ___ guidance, the introducer needle was inserted into the internal jugular vein under direct ultrasound visualization. Venous blood was withdrawn. The syringe was removed, and a guidewire was advanced into the introducer needle. The introducer needle was removed over the guidewire. A small incision was made at the skin surface with a scalpel, and a dilator was exchanged over the wire. After appropriate dilation was obtained, the dilator was exchanged over the wire for a Trialysis hemodialysis catheter. The wire was removed, and the catheter was sutured in place at 19 cm. A sterile chlorhexidine impregnated dressing was placed over the catheter at the insertion site. The patient tolerated the procedure without any hemodynamic compromise. At time of procedure completion, all ports were aspirated and flushed properly. Heparin was instilled in the dialysis ports. Postprocedure chest x-ray is pending. Estimated blood loss is less than 2 mL. MTDD
[2020-09-10] MEDS ORDERED: CALC1CAP PO (14:23)
[2020-09-10] MEDS ORDERED: SODI650T PO (14:23)
== END 2020-09-04 14:41 | disposition home or self-care (01) | DRG 469 ==
LOC: M ED 22:23 → M PCU 08-27 04:46 → ENRESERV 08-27 07:54 → M ED INP 08-27 08:42 → M ICU 08-27 10:24 → M PCU 08-30 23:50
PROVIDERS: ADMIT Internal Medicine; ATTEND Internal Medicine Nephrology
PROC: 30233N1 Transfusion of Nonautologous Red Blood Cells into Peripheral Vein, Percutaneous Approach (ICD-10-PCS; principal; 2020-08-28)
PROC: 5A1D90Z Performance of Urinary Filtration, Continuous, Greater than 18 hours Per Day (ICD-10-PCS; 2020-08-28)
PROC: 02H633Z Insertion of Infusion Device into Right Atrium, Percutaneous Approach (ICD-10-PCS; 2020-08-28)
DX: N17.0 Acute kidney failure with tubular necrosis (principal); E87.2 Acidosis; E83.42 Hypomagnesemia; E11.9 Type 2 diabetes mellitus without complications; I10 Essential (primary) hypertension; D50.9 Iron deficiency anemia, unspecified; E83.51 Hypocalcemia; E87.5 Hyperkalemia; E87.70 Fluid overload, unspecified; E89.0 Postprocedural hypothyroidism; Z79.4 Long term (current) use of insulin; Z79.899 Other long term (current) drug therapy; K21.9 Gastro-esophageal reflux disease without esophagitis; Z96.612 Presence of left artificial shoulder joint; Z90.49 Acquired absence of other specified parts of digestive tract; Z85.850 Personal history of malignant neoplasm of thyroid; J30.2 Other seasonal allergic rhinitis; R11.2 Nausea with vomiting, unspecified; R19.7 Diarrhea, unspecified; E87.6 Hypokalemia; E66.9 Obesity, unspecified; Z20.828 Contact with and (suspected) exposure to other viral communicable diseases

== ENCOUNTER → 2020-09-10 | Outpatient (REF) | payer BC, OTHER ==
[~2020-09-10] MED LIST changes: +ACET-907 PO; +AMLO1TAB25 PO; +CALC1CAP PO; +IBUP-1720 PO; +METF-877 PO; +METO1TAB7 PO; +PATIENT COMMENT; +POTA1TAB14 PO; +PROAAER10 INH; +SODI650T PO; +SYNT150T PO; +SYNT175T2 PO
[2020-09-10 18:14] LABS: COMPLEMENT C3 134 MG/DL (90-180); COMPLEMENT C4 36 MG/DL (10-40); TOTAL PROTEIN 7.1 GM/DL (6.4-8.2)
[2020-09-10 18:25] LABS: HEPATITIS B SURFACE ANTIBODY NEGATIVE (POSITIVE)
[2020-09-10 18:36] LABS: HEPATITIS B SURFACE ANTIGEN NEGATIVE (NEGATIVE)
[2020-09-10 19:04] LABS: HEPATITIS B CORE ANTIBODY IGM NEGATIVE (NEGATIVE); HEPATITIS C VIRUS ABY INDEX 0.1 INDEX (<0.8)
== END ==
LOC: M LAB REF 16:59
PROVIDERS: ATTEND Internal Medicine Nephrology
DX: R80.9 Proteinuria, unspecified (principal)

== ENCOUNTER → 2020-09-13 | Outpatient (CLI) | payer BC, OTHER ==
[~2020-09-13] MED LIST changes: +LIDOCAINE W/EPINEPHRINE 1% 20ML VIAL As Ordered ONE; +MIDAZOLAM INJ 2MG/2ML VIAL (J2250 PER 1MG) As Ordered ONE; +ceFAZolin 2 GM/D5W 50 ML IV BAG (J0690 PER 500MG) As Ordered ONE; +fentaNYL 100 MCG/2 ML INJECTION (J3010) As Ordered ONE
--- NOTE | 2020-09-13 11:16 | ROOPDOC ---
[facility] Report Of Operation Report of Operation DATE OF PROCEDURE: 09/13/20 PREPROCEDURE DIAGNOSES: End-stage renal disease requiring access for dialysis POSTPROCEDURE DIAGNOSES: Same PROCEDURE: 1. Ultrasound-guided access left internal jugular vein 2. Placement of a 27 cm tunneled PermCath left internal jugular vein SURGEON: Nuria Dawson MD ANESTHESIA: Local anesthesia with 20 mL lidocaine with epinephrine. Moderate intravenous conscious sedation was supervised by Dr. Dawson. The patient was independently monitored by registered nurse assigned to the Department of radiology using automated blood pressure, EKG, and pulse oximetry. The details sedation record is permanently stored in the hospital information system. The following is a brief sedation record: Start time 10:41, stop time 11:08, fentanyl 50 g IV, Versed 2 mg IV, Ancef 2 g IV. INDICATION FOR PROCEDURE: Ms. Villalobos is a very pleasant 50-year-old patient whose renal insufficiency has progressed end-stage renal disease requiring access for dialysis. Risks benefits and alternatives to PermCath placement were explained and she is agreeable to proceed. Informed consent was obtained. INTERPRETATION: The catheter is in good position with no kinks in the catheter, the tips freely mobile at the SVC right atrial junction, no pneumothorax is present. Okay to use catheter for dialysis. REPORT OF OPERATION: The patient was brought to the angiographic suite in stable condition. I examined her right neck with ultrasound. She recently had a non- tunneled catheter in her right neck, and I found there was a significant amount of thrombus within the jugular vein. Not completely occlusive, but possibly occlusive more proximally where we could not visualize with ultrasound. I then examined the jugular vein on the left, and the patient had a widely patent vein, although it was a little bit diminutive in size. We then prepped the left neck and chest for a left IJ PermCath placement. A timeout was performed. Sedation and antibiotics were administered without complication. Local anesthesia was administered to the left chest distal to the clavicle, over the clavicle to the left neck jugular access site. A microneedle was used to access the left jugular vein under ultrasound guidance. A wire was passed through this access and it was challenging to get the wire to cross over the chest to the SVC. Eventually, we were able to get the wire to follow attract towards the SVC and a 4 Spanish sheath was placed and flushed with saline. We then navigated an O35 wire from the left jugular access site through the sheath to the right atrium. This took a considerable amount of time due to tortuosity and central vessels I suspect there may also be some stenosis. Once the wire was in correct position, 2 serial dilators were passed over the wire using a Seldinger technique and then a peel- away sheath was placed over the wire. We then made a small incision on the left chest and at the jugular access site. A 27 cm dual lumen PermCath was tunneled from the left chest to the left jugular access site. We then removed the inner cannula and wire and attempted to pass the tips through the peel-away sheath. Unfortunately, without the dilator, there was a kink in the peel-away sheath. We replaced the wire and the dilator, left this in place for a moment, and then quickly removed it and placed the catheter through the sheath. We were then able to successfully past the tip of the catheter all the way to the SVC right atrial junction. The peel-away sheath was removed. Both ports emerita back and flushed easily with heparinized saline. The ports were heparin locked and appropriate caps were placed. We irrigated with saline at the 2 incisions and the jugular access site was closed with a deep and superficial interrupted Monocryl suture. Dermabond was placed at the skin. We closed the exit site on the left chest with a Prolene suture and secure the catheter to the chest wall with 2 additional Prolene sutures. Sterile dressings were applied. The patient was then allowed to awaken and taken to recovery in stable condition. She tolerated the sedation and the procedure well. ESTIMATED BLOOD LOSS: Approximately 5 mL. COMPLICATIONS: None. PLAN: Okay to use the PermCath for dialysis. We will be happy to see the patient in outpatient clinic for vein mapping if her renal failure is felt to be permanent. Okay to resume home diet medications. Keep head elevated greater than 45 for the rest of the day to minimize risk of bleeding or bruising. We appreciate the opportunity to participate in the care of this patient. NURIA DAWSON MD Sep 13, 2020 11:16
[2020-09-13 12:00] VITALS: BP 127/69
== END ==
LOC: M IRPRO 08:08
PROVIDERS: ATTEND Surgery Vascular Surgery
DX: N18.6 End stage renal disease (principal); I82.C11 Acute embolism and thrombosis of right internal jugular vein; I12.0 Hypertensive chronic kidney disease with stage 5 chronic kidney disease or end stage renal disease; Z85.3 Personal history of malignant neoplasm of breast
CPT/HCPCS: 36558; 99152; 99153; C1750; C1894; J0690; J1644; J2250; J3010

== ENCOUNTER → 2020-11-22 | Outpatient (CLI) | payer BC, OTHER ==
[~2020-11-22] MED LIST changes: +D31000TA2 PO; +IBUP1TAB5 PO; -IBUP40TA PO; +LIDOCAINE 1% MDV 20ML VIAL As Ordered ONE; -LIDOCAINE W/EPINEPHRINE 1% 20ML VIAL As Ordered ONE; +MONT10TA10 PO; -MONT10TA4 PO; -ceFAZolin 2 GM/D5W 50 ML IV BAG (J0690 PER 500MG) As Ordered ONE; +diphenhydrAMINE 50MG/ML VIAL (J1200) As Ordered ONE
--- NOTE | 2020-11-22 11:13 | IRHP ---
[facility] IR Pre-Procedure H & P General Date of Service: Nov 22, 2020 Procedure: Same Day Surgery Interval History and Physical I have seen the patient and reviewed last H & P performed within 30 days. There is no significant interval change. History of Present Illness Chief Complaint The patient is a 50-year-old female admitted with a reason for visit of renal failure. PRE-PROCEDURE DIAGNOSIS: renal failure HEART: normal rate. LUNGS: normal breathing at rest. ASA Classification ASA Classification: III-Severe systemic dis. Mallampati Score: II NPO: Yes Problems with prior sedation: No Obstructive Sleep Apnea: No Plan moderate sedation Allergies Coded Allergies: No Known Allergies (Verified , 08/16/18) Home Medications Scheduled Amlodipine Besylate (Amlodipine Besylate), 10 MG PO DAILY Insulin Glargine (Lantus), 10 UNITS SC DAILY Levothyroxine Sodium (Synthroid), 150 MCG PO Q2D, (Reported) Levothyroxine Sodium (Synthroid), 175 MCG PO Q2D, (Reported) Metoprolol Succinate (Metoprolol Succinate), 50 MG PO DAILY, (Reported) Multivitamins (Thera M Plus Tablet), 1 TAB PO DAILY, (Reported) Omeprazole (Omeprazole), 20 MG PO DAILY, (Reported) Potassium Chloride (Potassium Chloride), 40 MEQ PO DAILY Sodium Bicarbonate (Sodium Bicarbonate), 650 MG PO BID, (Reported) Scheduled PRN Acetaminophen (Tylenol), 650 MG PO Q4H PRN for HEADACHE OR PAIN, (Reported) Albuterol Sulfate (Proair Hfa), 2 PUFF INH QID PRN for SHORTNESS OF BREATH, (Reported) Miscellaneous Medications [Patient Comment], (Reported) VS, I&O, 24H, Fishbone Vital Signs/I&O Vital Signs Date Time Temp Pulse Resp B/P (MAP) Pulse Ox O2 Delivery O2 Flow Rate FiO2 11/22/20 10:45 99 71 18 98 Room Air JOSE JOHNSON MD Nov 22, 2020 11:13
[2020-11-22 14:45] VITALS: BP 114/73
--- NOTE | 2020-11-25 15:42 | POST-OPPD ---
Postoperative Procedure Note Date Of Procedure: Nov 22, 2020 Time Of Procedure: 16:[address] Guided kidney biopsy. IR Moderate sedation. Clinical Information:Renal failure. Physician: Dr. Noe. Procedure: The patient was advised of the benefits, risks, and alternatives of the procedure and informed consent was obtained. A time out was performed with verification of the patient's name, MRN, site of procedure, and type of procedure to be performed. The patient was positioned in the prone position on the CT table. The site was prepped and draped in the usual sterile fashion. Moderate sedation was performed by the physician including the presence of an independent trained RN who assisted in monitoring the patient's level of consciousness and physiological status. Following the administration of fent anyl and Versed, the physician spent 45 minutes of continuous [id number] time with the patient. Preliminary CT demonstrates unremarkable left kidney. The skin and expected tract were anesthetized with lidocaine.A 17-gauge coaxial needle was advanced under intermittent CT guidance to the left kidney lower pole cortex. An 18-gauge Biopince device was advanced through the coaxial needle and used to obtain 3 cores through the lower pole of the kidney, with CT confirmation. The needle was removed, pressure held and hemostasis achieved. A follow-up CT through the area demonstrates no significant hematoma. A sterile dressing was applied to the site. The patient tolerated the procedure well and was returned to the PRU in stable condition. EBL:Less than 5 mL. Complications:None. Conclusion:1. CT demonstrates unremarkable left kidney. 2. Successful CT-guided renal biopsy. Patient to follow-up with referring provider for biopsy results. Thank you for this referral. JOSE NOE MD Nov 25, 2020 15:42
== END ==
LOC: M IRPRO 10:34
PROVIDERS: ATTEND Radiology Diagnostic Radiology
DX: N17.9 Acute kidney failure, unspecified (principal); I10 Essential (primary) hypertension; E11.9 Type 2 diabetes mellitus without complications; E03.9 Hypothyroidism, unspecified; K21.9 Gastro-esophageal reflux disease without esophagitis; Z79.4 Long term (current) use of insulin; Z79.899 Other long term (current) drug therapy; Z96.612 Presence of left artificial shoulder joint; Z90.89 Acquired absence of other organs
CPT/HCPCS: 50200; 77012; 88300; 99152; 99153; J1200; J2250; J3010

== ENCOUNTER → 2020-12-01 | Outpatient (REF) | payer OTHER ==
[~2020-12-01] MED LIST changes: -LIDOCAINE 1% MDV 20ML VIAL As Ordered ONE; -MIDAZOLAM INJ 2MG/2ML VIAL (J2250 PER 1MG) As Ordered ONE; -diphenhydrAMINE 50MG/ML VIAL (J1200) As Ordered ONE; -fentaNYL 100 MCG/2 ML INJECTION (J3010) As Ordered ONE
[2020-12-02 17:52] LABS: CREATININE, SERUM 2.8 MG/DL (0.6-1.0)
[2020-12-02 18:13] LABS: CREATININE CLEARANCE, URINE 11.9 ML/MIN (75-115); CREATININE, URINE 28.9 MG/DL
[2020-12-07 12:08] LABS: OXALATE 24HR URINE 27 mg/24 hr (4-31); OXALATE TOTAL URINE 16 mg/L (Undefined)
== END ==
LOC: M LAB REF 17:03
PROVIDERS: ATTEND Internal Medicine Nephrology
DX: E87.2 Acidosis (principal); N17.9 Acute kidney failure, unspecified; R82.992 Hyperoxaluria

== ENCOUNTER → 2020-12-25 | Outpatient (CLI) | payer BC, OTHER | LOC: M LABSMTC 08:40 | PROVIDERS: ATTEND Anesthesiology | DX: Z01.812 Encounter for preprocedural laboratory examination (principal); Z20.822 Contact with and (suspected) exposure to COVID-19 ==

== ENCOUNTER 2020-12-30 06:11 | Day surgery (SDC) | payer BC, OTHER ==
[~2020-12-30] VITALS: Ht 172.7 cm; Wt 89.7 kg
--- OUTSIDE RECORDS SUMMARY | 2020-12-30 06:15 | CCD ---
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 Role Phone Kailyn LOYOLA, Remi AGOSTO Unavailable [phone] Reason for Referral No Reason for Referral Recorded Problems Includes: Active, inactive, and resolved Problems All Visits Onset Date - Time Resolved Date - Time Provider Co ndition Status Cataract Senile Posterior Subcapsular Polar 10/21/2020 - 12:00AM Remi Avina MD, FACS Active Cataract Senile Cortical Bilateral 07/28/2016 - 12:00AM Remi Avina MD, FACS Active Type 2 Diabetes with Diabetic Cataract 07/28/2016 - 12:00AM Remi Rodarte MD, FACS Active Retinopathy Hypertensive Both Eyes 07/28/2016 - 12:00AM Remi Avina MD, FACS Active Taking Medication For Diabetes Long-term Use of Insulin 07/28/20 16 - 12:00AM Remi Avina MD, FACS Active Pinguecula Bilateral 07/28/2016 - 12:00AM Remi Smith MD, FACS Active Cataract Senile Nuclear 07/28/2016 - 12:00AM Remi Avina MD, FACS Active Dry Eye Syndrome Both Eyes 07/28/2016 - 12:00AM Remi Avina MD, FACS Active Plan of Treatment Referrals To Diagnosis Referral to Dr. Gianna Avina MD, FACS Poste rior subcapsular polar age-related cataract, bilateral Future Appointments Date Time Location Provider CATARACT EVAL - REFERRAL FR DR. CURRY 11/10/2020 8:10AM Remi Avina MD [facility] Alexander Katz DO 1 Year Follow-Up 12/06/2020 9:05AM Remi Avina MD [facility] Remi Avina MD, FACS Findings Encounter Date Requested Referred to: Dr. Katz TRIAGE NON URGEN T with Remi Avina MD, FACS 10/21/2020 Assessments Includes: Assessments for all patient encounters Findings Encounter Date Assessment of long-term use of insulin TRIAGE NON URGE NT with Remi Rodarte MD, FACS 10/21/2020 Bilateral cortical senile cataract TRIAGE NON URGENT w [facility] Remi Avina MD, FACS 10/21/2020 Nuclear senile cataract TRIAGE NON URGENT with Remi Iqbal MD, FACS 10/21/2020 Posterior subcapsular polar senile cataract TRIAGE NON URGENT with Remi Avina MD, FACS 10/21/2020 Type 2 diabetes with diabetic cataract TRIAGE NON URGE NT with Remi Rodarte MD, FACS 10/21/2020 Assessment of long-term use of insulin 1 Year Follow-U p with Remi Avina MD, FACS 12/04/2019 Bilateral cortical senile cataract 1 Year Follow-Up wi th Remi Avina MD, FACS 12/04/2019 Hypertensive retinopathy of both eyes 1 Year Follow-Up with Remi Avina MD, FACS 12/04/2019 Nuclear senile cataract 1 Year Follow-Up with Remi Lee MD, FACS 12/04/2019 Type 2 diabetes with diabetic cataract 1 Year Follow-U p with Remi Avina MD, FACS 12/04/2019 Assessment of long-term use of insulin 1 Year Follow-U p with Remi Avina MD, FACS 12/03/2018 Bilateral cortical senile cataract 1 Year Follow-Up wi th Remi Avina MD, FACS 12/03/2018 Hypertensive retinopathy of both eyes 1 Year Follow-Up with Remi Avina MD, FACS 12/03/2018 Nuclear senile cataract 1 Year Follow-Up with Remi Lee MD, FACS 12/03/2018 Type 2 diabetes with diabetic cataract 1 Year Follow-U p with Remi Avina MD, FACS 12/03/2018 Bilateral cortical senile cataract NEW PATIENT with Robin Avina MD, FACS 07/28/2016 Bilateral pinguecula NEW PATIENT with Remi Avina MD , FACS 07/28/2016 Dry eye syndrome of both eyes NEW PATIENT with Remi Iqbal MD, FACS 07/28/2016 Hypertensive retinopathy of both eyes NEW PATIENT with Remi Avina MD, FACS 07/28/2016 Long-term use of insulin NEW PATIENT with Remi rhoades MD, FACS 07/28/2016 Nuclear senile cataract NEW PATIENT with Remi Avina MD, FACS 07/28/2016 Posterior subcapsular polar senile cataract NEW PATIEN T with Remi Avina MD, FACS 07/28/2016 Type 2 diabetes with diabetic cataract NEW PATIENT wit h Remi Avina MD, FACS 07/28/2016 Instructions Instructions not supported for this document typeNo Instructions Recorded Medical Equipment - Implanted Devices Includes: Current and historical DevicesNo Medical Equipment Recorded Medications Includes: Current and historical Medications Current Medications (continue as prescribed) Lantus 100 UNIT/ML Solution 07/28/2016 Provider: Diagnosis: MetFORMIN HCl 1000 MG Tablet 07/28/2016 Provider: Diagnosis: Levothyroxine 0.05 MG Tablet 07/28/2016 Provider: Diagnosis: Omeprazole 20 MG Tablet Delayed Release 07/28/2016 Provider: Diagnosis: Losartan Potassium 100 MG Tablet 07/28/2016 Provide r: Diagnosis: Medications Administered Includes: Administered Medications in patient's chartNo Administered Medications Recorded Vital Signs Includes: Vital Signs from 10/21/2019 through 10/21/2020No Vital Signs Recorded For Specified Dates Results Includes: Results from 10/21/2019 through 10/21/2020No Results Recorded For Specified Dates History of Present Illness History of Present Illness not supported for this document typeNo History of Present Illness Recorded Social History Description Last Updated No consumption of alcohol 10/21/2020 No tobacco use 10/21/2020 Not using drugs 10/21/2020 Smoking status : Never smoker 10/21/2020 Non-smoker 12/04/2019 Procedures and Surgical History Includes: Procedures from 10/21/2019 through 10/21/2020 Procedures Code Diagnosis Performing Provider Service Location Service Date Intermediate Eye Exam Established Patient [id number] Posterior subcapsular polar age- related cataract, bilateral, Cortical age-related cataract, bilateral, Age- related nuclear cataract, bilateral, Type 2 diabetes mellitus with diabetic cataract Remi Avina MD, FACS 10/21/2020 Intermediate Eye Exam Established Patient [id number] Type 2 diabetes mellitus with diabetic cataract, em physician (current) use of insulin, Age-related nuclear cataract, bilateral, Cortical age-related cataract, bilateral Remi Rodarte MD, TRINY Avina MD [facility] 12/04/2019 Surgical History Last Updated Surgical / procedural history Knee Surgery, Shoulder Replacement, Hysterectomy 12/04/2019 Medical History Includes: Medical History in patient's chart Description Last Updated No reported medical history Thyroid Can cer 2011, Basal Cell Carcinoma (Nose) 2009, Pancreatitis 1999, Stage 5 Kidney Faiure (Dialysis 3x a week) 10/21/2020 History of the retina was normal 12/03/2018 10/21/2020 Not currently wearing eyeglasses 10/21/2020 No recent change in medical history 12/04/2019 History of diabetes mellitus Type 2 Dx: 2012, A1c: unsure, FBS: does not check 12/04/2019 Family History Includes: Family History in patient's chart Description Last Updated Fraternal history of family history of cancer 10/21/20 20 Maternal history of cataract 10/21/2020 Paternal history of glaucoma 10/21/2020 Sororal history of family history of cancer 10/21/2020 Review of Systems Review of Systems not supported for this document typeNo Review of Systems Recorded Mental Status Mental Status not supported for this document type Description Oriented to time, place, and person Functional Status Functional Status not supported for this document typeNo Functional Status Recorded Physical Exam Physical Exam not supported for this document typeNo Physical Exam Recorded Immunizations Includes: Immunizations in patient's chartNo Immunizations Recorded Allergies Includes: Active, inactive, and resolved AllergiesNo Known Allergies Encounters Includes: Encounters from 10/21/2019 through 10/21/2020 Encounter Provider Location Date Check-In Time Check-Out Time D iagnosis TRIAGE NON URGENT Remi Avina MD, TRINY Avina MD [facility] 10/21/2020 12:25PM 12:59PM Cataract Senile Douglas ical Bilateral, Cataract Senile Nuclear, Cataract Senile Posterior Subcapsular Polar, Type 2 Diabetes with Diabetic Cataract, Assessment of Taking Medication For Diabetes Long-term Use of Insulin 1 Year Follow-Up Remi Avina MD, TRINY Camacho [facility] 12/04/2019 8:57AM 9:42AM Assessment of Taking Medication For Diabetes Long-term Use of Insulin, Type 2 Diabetes with Diabetic Cataract, Cataract Senile Cortical Bilateral, Cataract Senile Nuclear, Retinopathy Hypertensive Both Eyes Insurance Includes: Active Insurance Policies Plan Name Member ID Group # Subscriber Relationship Effective Da jason 1 - [employer] ([place]) - [employer] [id number] Shruthi Villalobos Self 2 - (PRIME) [facility]ly [facility] ([facility] [id number] WilfredoSam Advance Directives Includes: Current Advance DirectivesNo Advance Directives Recorded Health Concerns Includes: Active Health ConcernsNo Active Health Concerns Recorded Goals Includes: Active GoalsNo Active Goals Recorded Interventions Includes: Interventions for active GoalsNo Interventions Recorded Evaluations & Outcomes Includes: Evaluations & Outcomes for active GoalsNo Outcomes Recorded
--- OUTSIDE RECORDS SUMMARY | 2020-12-30 06:15 | CCD ---
Author Author [facility] Organization [facility] Address Unknown Phone Unavailable Care Team Providers Care Senior Site Manager Name Role Phone Rosanna Rodarte, Janice Khalil MD, FACS Unavailable Unavailable Marte Rodarte, Janice Khalil MD, FACS Unavailable Unavailable Marte Rodarte, Janice Khalil MD, FACS Unavailable Unavailable Marte Rodarte, Janice Khalil MD, FACS Unavailable Unavailable Marte Rodarte, Janice Khalil MD, FACS Unavailable Unavailable Marte Rodarte, Janice Khalil MD, FACS Unavailable Unavailable Marte Rodarte, Janice Khalil MD, FACS Unavailable Unavailable Marte Rodarte, Janice Khalil MD, FACS Unavailable Unavailable Marte Rodarte, Janice Khalil MD, FACS Unavailable Unavailable Marte Rodarte, Janice Khalil MD, FACS Unavailable Unavailable Marte Rodarte, Janice Khalil MD, FACS Unavailable Unavailable Marte Rodarte, Janice Khalil MD, FACS Unavailable Unavailable Marte Rodarte, Janice Khalil MD, FACS Unavailable Unavailable Marte Rodrate, Janice Khalil MD, FACS Unavailable Unavailable Marte Rodarte, Janice Khalil MD, FACS Unavailable Unavailable Marte Rodarte, Janice Khalil MD, FACS Unavailable Unavailable Marte Rodarte, Janice Khalil MD, FACS Unavailable Unavailable Marte Rodarte, Janice Khalil MD, FACS Unavailable Unavailable Marte Rodarte, Janice Khalil MD, FACS Unavailable Unavailable Marte Rodarte, Janice Khalil MD, FACS Unavailable Unavailable Marte Rodarte, Janice Khalil MD, FACS Unavailable Unavailable Marte Rodarte, Janice Khalil MD, FACS Unavailable Unavailable Marte Rodarte, Janice Khalil MD, FACS Unavailable Unavailable Marte Rodarte, Janice Khalil MD, FACS Unavailable Unavailable Marte Rodarte, Janice Khalil MD, FACS Unavailable Unavailable Marte Rodarte, Janice Khalil MD, FACS Unavailable Unavailable Marte Rodarte, Janice Khalil MD, FACS Unavailable Unavailable Rosanna Rodarte, Janice Khalil MD, FACS Unavailable Unavailable Rosanna Rodarte, Janice Khalil MD, FACS Unavailable Unavailable Rosanna Rodarte, Janice Khalil MD, FACS Unavailable Unavailable Rosanna Rodarte, Janice Khalil MD, FACS Unavailable Unavailable Rosanna Rodarte, Janice Khalil MD, FACS Unavailable Unavailable Rosanna Rodarte, Janice Khalil MD, FACS Unavailable Unavailable Rosanna Rodarte, Janice Khalil MD, FACS Unavailable Unavailable Veeravanallur Appuswamy, Lluvia Unavailable Unavail able Veeravanallur Appuswamy, Lluvia Unavailable Unavail able Veeravanallur Appuswamy, Lluvia Unavailable Unavail able Veeravanallur Appuswamy, Lluvia Unavailable Unavail able Catalina, Domitila MD Unavailable Unavailable Catalina, Domitila MD Unavailable Unavailable Catalina, Domitila MD Unavailable Unavailable Catalina, Domitila MD Unavailable Unavailable Catalina, Domitila MD Unavailable Unavailable Catalina, Domitila MD Unavailable Unavailable Catalina, Domitila MD Unavailable Unavailable Catalina, Domitila MD Unavailable Unavailable Catalina, Domitila MD Unavailable Unavailable Catalina, Domitila MD Unavailable Unavailable Catalina, Domitila MD Unavailable Unavailable Catalina, Domitila MD Unavailable Unavailable Catalina, Domitila MD Unavailable Unavailable Catalina, Domitila MD Unavailable Unavailable Catalina, Domitila MD Unavailable Unavailable Catalina, Domitila MD Unavailable Unavailable Catalina, Domitila MD Unavailable Unavailable Catalina, Domitila MD Unavailable Unavailable Catalina, Domitila MD Unavailable Unavailable Catalina, Domitila MD Unavailable Unavailable Catalina, Domitila MD Unavailable Unavailable Catalina, Domitila MD Unavailable Unavailable Catalina, Domitila MD Unavailable Unavailable Catalina, Domitila MD Unavailable Unavailable Catalina, Domitila MD Unavailable Unavailable Catalina, Domitila MD Unavailable Unavailable Catalina, Domitila MD Unavailable Unavailable Catalina, Domitila MD Unavailable Unavailable Catalina, Domitila MD Unavailable Unavailable Catalina, Domitila MD Unavailable Unavailable Catalina, Domitila MD Unavailable Unavailable Catalina, Domitila MD Unavailable Unavailable Catalina, Domitila MD Unavailable Unavailable Catalina, Domitila MD Unavailable Unavailable Catalina, Domitila MD Unavailable Unavailable Catalina, Domitila MD Unavailable Unavailable Catalina, Domitila MD Unavailable Unavailable Catalina, Domitila MD Unavailable Unavailable Catalina, Domitila MD Unavailable Unavailable Catalina, Domitila MD Unavailable Unavailable NALLA, ZOHAIB Unavailable Unavailable Re-disclosure Warning The records that you are about to access may contain information from federally-assisted alcohol or drug abuse programs. If such information is present, then the following federally mandated warning applies: This information has been disclosed to you from records protected by federal confidentiality rules (42 CFR part 2). The federal rules prohibit you from making any further disclosure of this information unless further disclosure is expressly permitted by the written consent of the person to whom it pertains or as otherwise permitted by 42 CFR part 2. A general authorization for the release of medical or other information is NOT sufficient for this purpose. The Federal rules restrict any use of the information to criminally investigate or prosecute any alcohol or drug abuse patient.The records that you are about to access may contain highly sensitive health information, the redisclosure of which is protected by Article 27-F of the [facility] Public Health law. If you continue you may have access to information: Regarding HIV / AIDS; Provided by facilities licensed or operated by the [facility] Office of Mental Health; or Provided by the [facility] Office for People With Developmental Disabilities. If such information is present, then the following [facility] mandated warning applies: This information has been disclosed to you from confidential records which are protected by state law. State law prohibits you from making any further disclosure of this information without the specific written consent of the person to whom it pertains, or as otherwise permitted by law. Any unauthorized further disclosure in violation of state law may result in a fine or assisted sentence or both. A general authorization for the release of medical or other information is NOT sufficient authorization for further disc losure. Allergies and Adverse Reactions Type Description Substance Reaction Status Data Source(s ) Drug Class NO KNOWN ALLERGIES NO KNOWN ALLERGIES [facility] Allergy to substance No Known Allergies No known allergies (situation ) ZOIE (Remi Rodarte MD [facility]) Allergy to substance No Known Allergies No known allergies (situation ) ZOIE (Remi Rodarte MD [facility]) Family History Family Member Name Family Member Gender Family Member Status Date o f Status Description Data Source(s) Unknown Male Problem [facility]ENT ([facility]) Unknown Unknown Problem [facility] ([facility], ) Encounters Encounter Providers Location Date Indications Data Source(s ) Outpatient Attender: Lluvia Mariscal AppjosémyAttender : ZOHAIB JONES 12/30/2020 12:00:00 AM [facility] Outpatient<td ID="encounterTypeDescripti onID0">TRIAGE NON URGENT</td><td>Remi Avina MD, FACS</td><td>Remi Avina MD [facility]</td><td>10/21/2020</td><td>12:25PM</td><td>12:59PM</td><td><content ID="encounterDiagnosisID0-0">Cataract Senile Cortical Bilateral</content>, <content ID="encounterDiagnosisID0-1">Cataract Senile Nuclear</content>, <content ID="encounterDiagnosisID0-2">Cataract Senile Posterior Subcapsular Polar</content>, <content ID="encounterDiagnosisID0-3">Type 2 Diabetes with Diabetic Cataract</content>, <content ID="encounterDiagnosisID0-4">Assessment of Taking Medication For Diabetes Long-term Use of Insulin</content></td> Attender: Remi Rodarte MD, FACS Remi Avina MD [facility] 10/21/2020 12:25:00 PM EST - 10/21/2020 12:59:00 PM EST Cataract Senile Posterior Subcapsular Po larAssessment of Taking Medication For Diabetes Long-term Use of InsulinType 2 Diabetes with Diabetic CataractCataract Senile NuclearCataract Senile Cortical Bilateral ZOIE (Remi Rodarte MD [facility]) Cataract Senile Posterior Subcapsular Po lar Assessment of Taking Medication For Diab etes Long-term Use of Insulin Type 2 Diabetes with Diabetic Cataract Cataract Senile Nuclear Cataract Senile Cortical Bilateral Outpatient Attender: Domitila Arnold MD [id number] 2019 12:00:00 AM EDT - 03/29/2020 02:12:58 PM EDT Malignant neoplasm of thyroid gland [facility] Malignant neoplasm of thyroid gland Outpatient<td ID="encounterTypeDescripti onID1">1 Year Follow-Up</td><td>Remi Avina MD, FACS</td><td>Remi Avina MD [facility]</td><td>12/04/2019</td><td>8:57AM</td><td>9:42AM</td><td><content ID="encounterDiagnosisID1-0">Assessment of Taking Medication For Diabetes Long- term Use of Insulin</content>, <content ID="encounterDiagnosisID1-1">Type 2 Diabetes with Diabetic Cataract</content>, <content ID="encounterDiagnosisID1- 2">Cataract Senile Cortical Bilateral</content>, <content ID="encounterDiagnosisID1-3">Cataract Senile Nuclear</content>, <content ID="encounterDiagnosisID1-4">Retinopathy Hypertensive Both Eyes</content></td> Attender: Remi Rodarte MD, FACS Remi Avina MD [facility] 12/04/2019 08:57:0 0 AM EST - 12/04/2019 09:42:00 AM EST Retinopathy Hypertensive Both EyesCatara ct Senile NuclearCataract Senile Cortical BilateralType 2 Diabetes with Diabetic CataractAssessment of Taking Medication For Diabetes Long-term Use of InsulinR etinopathy Hypertensive Both EyesCataract Senile NuclearCataract Senile Cortical BilateralType 2 Diabetes with Diabetic CataractAssessment of Taking Medication For Diabetes Long-term Use of Insulin ZOIE (Remi Rodarte MD [facility]) Retinopathy Hypertensive Both Eyes Cataract Senile Nuclear Cataract Senile Cortical Bilateral Type 2 Diabetes with Diabetic Cataract Assessment of Taking Medication For Diab etes Long-term Use of Insulin Retinopathy Hypertensive Both Eyes Cataract Senile Nuclear Cataract Senile Cortical Bilateral Type 2 Diabetes with Diabetic Cataract Assessment of Taking Medication For Diab etes Long-term Use of Insulin Medications Medication Brand Name Start Date Product Form Dose Route Admi nistrative Instructions Pharmacy Instructions Status Indications Reaction Description Data Source(s) 0.3 % 12/25/2020 12:00:00 AM EST drops,suspension 3 INSTILL ONE DROP INTO RIGHT EYE TWO TIMES A DAY STARTING 3 DAYS PRIOR TO SURGERY INSTILL ONE DROP INTO RIGHT EYE TWO TIMES A DAY STARTING 3 DAYS PRIOR TO SURGERY SOLD: 12/27/2020 [facility] moxifloxacin 5 MG/ML Ophthalmic Solution 0.5 % MOXIFLOXACIN HCL 12/25/2020 12:00:00 AM EST drops 3 INSTILL ONE DROP INTO THE RIGHT EYE FOUR TIMES A DAY INSTILL ONE DROP INTO THE RIGHT EYE FOUR TIMES A DAY SOLD: 12/27/2020 [facility] 0.05 % 12/25/2020 12:00:00 AM EST drops 5 THE DAY OF SURGERY, REMOVE PATCH AND INSTILL ONE DROP INTO RIGHT EYE FOUR TIMES A DAY THE DAY OF SURGERY, REMOVE PATCH AND INSTILL ONE DROP INTO RIGHT EYE FOUR TIMES A DAY SOLD: 12/27/2020 [facility] 20 mEq 10/05/2020 12:00:00 AM EST tablet extended release 60 TAKE TWO TABLETS BY MOUTH ONCE DAILY TAKE TWO TABLETS BY MOUTH ONCE DAILY SOLD: 10/06/2020 [facility] 500 mg 05/05/2020 12:00:00 AM EDT capsule 28 TAKE ONE CAPSULE BY MOUTH FOUR TIMES A DAY FOR 7 DAYS TAKE ONE CAPSULE BY MOUTH FOUR TIMES A DAY FOR 7 DAYS SOLD: 05/05/2020 [facility] Insurance Providers Payer name Policy type / Coverage type Policy ID Covered constitution party ID Covered constitution party's relationship to umaña Policy Umaña Plan Information [facility] [id number] [id number] [facility] E[facility]IRE MANNY DIV [id number] HU2 [id number] [facility] [id number] [id number] [place] [facility] U [id number] Spouse [id number] [facility] Employees ([place] - [employer] Other 0 Self 0 HUMANA [facility] O [id number] S [id number] [facility] O [id number] S [id number] BC [place]IRE MANNY DIV [id number] HU2 [id number] BS [place]IRE MANNY DIV [id number] HU2 [id number] [facility] ([place] - [employer] Other 0 Self 0 [place] [facility] [id number] Family Dep endent [id number] Medicare [place] Medigap Part B [id number] Self [id number] [facility] Organization (O) [id number] 50 [id number] [place] [employer] (TFL) Medigap Part B [id number] Family Dep endent [id number] [place] Medigap Part B [id number] Self [id number] [facility] Health Maintenance Organization (HMO) [id number] [place] [employer] ([place]FL) Medigap Part B [id number] Family Dep endent [id number] [place] Medigap Part B [id number] Self [id number] [facility] Health Maintenance Organization (HMO) [id number] [place] ([facility]) O [id number] P [id number] [place] ([facility]) O [id number] O [id number] [place] [facility]y [facility] (TFL) [facility] Part B [id number] Family Dep endent [id number] Medicare [place] Medigap Part B [id number] Self [id number] [place] [facility] Health Maintenance Organization (HMO) [id number] 50 [id number] [place] (2018) [facility] Part [facility] [id number] Family Dependen t [id number] [facility] Health Maintenance Organization (HMO) [id number] 50 [id number] [place] (2018) [facility] Part [facility] [id number] Family Dependen t [id number] [facility] Health Maintenance Organization (O) [id number] Spo [id number] EXCELLUS BCBS [id number] Spo YLS [id number] PI PI EXCELLUS BCBS PI PI [id number] Spo [id number] HUMANA [place] REG O [id number] P [id number] EAST HUMANA [id number] HU2 [id number] [facility] [id number] HU2 8 [id number] [facility] [id number] HU2 8 [id number] PGBA NORTH REGION [id number] HU2 [id number] PGBA NORTH PRANAV O [id number] S [id number] UNITED HEALTHCARE O [id number] S [id number] U [id number] Self [id number] PGBA NORTH PRANAV O [id number] S [id number] PGBA NORTH REGION [id number] HU2 [id number] BCBS [place] MANNY DIV [id number] HU2 [id number] U [id number] Spouse [id number] N REGIONAL CLAIMS [facility] [id number] 01 [id number] [facility] [id number] 01 [id number] HEALTHNET/ AD S [id number] P [id number] [place] ([facility]) P [id number] P [id number] Problems, Conditions, and Diagnoses Code Display Name Description Problem Type Effective Dates Data Source(s) 366.14 Cataract Senile Posterior Subcapsular Po lar Cataract Senile Posterior Subcapsular Polar Problem 10/21/2020 12:00:00 AM EST ZOIE (Catrachito Rodarte MD [facility]) Surgeries/Procedures Procedure Description Date Indications Data Source(s) Intermediate Eye Exam Established Patient Intermediate Eye Exam Established Patient 10/21/2020 12:00:00 AM EST ZOIE (Catrachito Rodarte MD [facility]) Surgical / procedural history Knee Surgery, Shoulder Replacement, Hysterectomy Surgical / procedural history Knee Surgery, Shoulder Replacement, Hysterectomy 12/04/2019 12:00:00 AM EST ZOIE (Remi rhoades MD [facility]) Intermediate Eye Exam Established Patient Intermediate Eye Exam Established Patient 12/04/2019 12:00:00 AM EST ZOIE (Catrachito Rodarte MD [facility]) Not currently wearing eyeglasses Not currently wearing eyegl asses 12/04/2019 12:00:00 AM EST ZOIE (Remi Rodarte MD [facility]) No reported medical history Thyroid Can cer 2012, Basal Cell Carcinoma (Nose) 2009, Pancreatitis 1999 No reported medical history Thyroid Can cer 2012, Basal Cell Carcinoma (Nose) 2009, Pancreatitis 2000 12/04/2019 12:00:00 AM EST ZOIE (Remi Rodarte MD [facility]) History of diabetes mellitus Type 2 Dx: 2012, A1c: unsure, FBS: does not check History of diabetes mellitus Type 2 Dx: 2012, A1c: unsure, FBS: does not check 12/04/2019 12:00:00 AM EST ZOIE (Catrachito Rodarte MD [facility]) No recent change in medical history No recent change in medi ian history 12/04/2019 12:00:00 AM EST ZOIE (Remi rhoades MD [facility]) History of the retina was normal 12/03/2018 History of the retina was normal 12/03/2018 12/04/2019 12:00:00 AM EST ZOIE (Catrachito Rodarte MD [facility]) Results ID Date Data Source [id number] 12/25/2020 09:00:00 AM EST [facility] Name Value Range Interpretation Code Description Data Maria C rce(s) Supporting Document(s) SARS coronavirus 2 RNA Not Detected [facility] This lab was ordered by [facility] and reported by [facility]. ID Date Data Source [id number] 03/29/2020 12:57:01 PM EDT [facility] Name Value Range Interpretation Code Description Data Maria C rce(s) Supporting Document(s) Progress Note [facility] SADANe8pQpLODfUt44/HSNpqIICqt7VhRXttTOy3RInaIOIeD7SaPDM4oU4yJJQ6CHjSUlHqZqZvGUR1 m [file] shipping/receiving manager+fpaOTFHEcAHNie0+ZHGnvdLZSMaRp/Pe9Jv5S4l87ofSa+M0xtsBbuIlkSszB2Zxb1CJh9WiswlVz [file] T5+YxOlEq1Gha1gp1MLJ9v9B0np/Dx5Mv+3BQCWjjKZHamUArD5Kn8L1c2j2SGVCKQeFVKrkBjLqa/Tavern Keeper [file] LNb/CARLOS A/r7JXiih4rO0GJuWFGDhYlbUiOSProMPWmJ [file] W1zjJf7ZOSm+M/i2+a2bai/performance specialist+JsPVUfdONg9O3RgpyUkixn2pb8RBFa9R0/BwXqMRaLkHHuYy5EzLe [file] XKQF5haDfxwpoAZkQ43ApqU0/MQxTBl+agiwSsUX36rjs0VpS/XxIm3csetSbhpiAcSZ6Gq8rB520+vpk teacher 2wE2pJL3/PLsqLDLKjvmrrKW/qGC0AlmA0VxifC0mty4PPHlrZR1JCO4iT8Unc9B0S5y3AhREeRTG7bB 3MBSlTB+vPktXYOBZgf0bOLK53VHh0EYzRiDmd4lsH f9zyRcf6/INNS003uFTFyGVRqRtw2OhJBTEzx1YqzUYAhGsw/MyTiJcOy+ZVcp1WigOJURWzCwbrVUNQ ZbKXUAEfWnvdOd7iVw1aCs/iawxwRLAdnNmGLMfr/DJl5VMunTSlx2EIeQTOHydPgLAkLd63OnU3x3um 60TaBK5p+Z78N6uPG11SuJ0zCYDNINu8K+ihGkc2Fc 4xzibSzRHcWvYJzuKAX7qI3jnhASosVZhsCZCVK9sfjsgJ3IAHdUn5KZcATMrFDGRsA2LDCQjDb2xUg2 vasbWYcLMPrbT5NENtSSwL0c/pR891qrXFAEE/qZERZ0VxeWTizWoHoAWb0vbRE62oJ2Szis363dzm+W 6aiXUxGC2LTrNzLOFYk4JHVr66vX/GG/2xasyA1tVV 2G3h6BZ0dV2Jai3ECtS3y/XxuG1PoQnjZe4fJIFMB5FZXA4EIHQRQNUt55U+cVYnZzRAEf44vmwGT39U v110Mck3jb9IhhyblYyw5CDQIT2mIZXrzJn2QRtRl5dggFOrdWgOIKeO5OQWYwauzbNketdKKsX7vHvN sjn5qfQyokqqddzvQdwK+Set+graciela+M5GOrRh19ZGqu [file] AgICAgICAgICAgICAgICAgICAgICAgICAgICAgICAg TXEuGADjCJSiQCKfNWGaCBHwAMBiTUZaDH9JDHKjPNWsMFAvLPRvFGPqBUWcGQAxORCuNZQvXNYcCVYu ICAgICAgICAgICAgICAgICAgICAgICAgICAgICAgICAgICAgICAgICAgICAgICAgICAgICAgICAgICAg TDIqRAEoFJ7ZJYMzXUBpQGVuIGCrVTYeQCQjCWDcYT AgICAgICAgICAgICAgICAgICAgICAgICAgICAgICAgICAgICAgICAgICAgICAgICAgICAgICAgICAgIC NeURRgJVAsANCjTIFkVAQoQU1SVQPuTSMdUGNyTUPzKDBvLSTcOFFhSTDyBLRdFKZyVLIyIDXeEXCaCR AgICAgICAgICAgICAgICAgICAgICAgICAgICAgICAg MGKoSRUgIQTvKUDjEGUeQKRhAHNzSMObZHXpBF6FPELvRRSqWMLeLGVuCZNpWZFoLIUqTKXfYVRnZOCl ICAgICAgICAgICAgICAgICAgICAgICAgICAgICAgICAgICAgICAgICAgICAgICAgICAgICAgICAgICAg DEDcWJMrUZUoDT9GKPTcIQNaRBMuRJUxUDHwENPmZZ AgICAgICAgICAgICAgICAgICAgICAgICAgICAgICAgICAgICAgICAgICAgICAgICAgICAgICAgICAgIC CeLHMnFHPiTALcDWXyOBNrUNOgRH4HCVBwCORpOGXsEWOvVZXnZDZcERNfEZOkGXCvSJEiPAMgEFMqCT AgICAgICAgICAgICAgICAgICAgICAgICAgICAgICAg XNHtMPVmYUWeBLOgKDEeDQZeELFrSYHvQQVpPETlIR4REGLqIOCbEGXgETFbZBXcNSHvAAQdANNvZSOp ICAgICAgICAgICAgICAgICAgICAgICAgICAgICAgICAgICAgICAgICAgICAgICAgICAgICAgICAgICAg DMIhCFBwDBXtAQQjQI8OEUSsHPCiPICoINDbSQZsAQ AgICAgICAgICAgICAgICAgICAgICAgICAgICAgICAgICAgICAgICAgICAgICAgICAgICAgICAgICAgIC HxXCUpMYSlYAMyJJUbWCTzXASpMDYtWI7CMPJfEWMqFNTgUFXvVBKhWJIsPNZnYBUhPFXuEQCsSKMfBM AgICAgICAgICAgICAgICAgICAgICAgICAgICAgICAg WDLdWKLbSRNlKIWeQINlDSUdRUXlHUOkXMAaZEKxUSDfTB6TYE95yXWoh0Y8QZUpQJ6rkrb/Ei1ZEJwz qkXjdTZdHM3GOoRpUA1sqm1ACaIiQW7qjm4TPBsWUoKdZ9X4gGEbYALtZCCHTvFyZ12oSEhsMi87YPjc JTBdGhPeCKw5Rd5NWsTlQ6juQPJwMgT9NENgUpE0PS VoUhN6UOLcXoIvRMPgDTHxDSMwWCNIBG4OYwZzP8ZizP40BMYZXi6+MRwevhKzUvgVNcZoESNvr5RnZZ f4JC6JIXJkAeiyu4NzVjPuHVEDKBjqBA6PSIV6MBCwOZRlVe4JDTCfX899ijPiVG9YKj1OQmSqFX8nqt 0BTxPvZSKvKudZPnh0MBpcTO7MrYBjJPtIea9wjvMn qpRDd3MhchFruNGVkDFxeUHNUK0gXHddWE7MRvOkGLUbPM1fOZ6gRCDaSKYoHwIfVBIHUG4FMRSfFIZc iBLyGUSmBKFWJJ7NSPxtOJN7MFEttkXapNWpXOnmGJ6JDXWltkZvPoLeMGIXRQp+Wh9VDQ1cq6RbRWet KBIwTK4pqr4KPPwVTaCeE6J3bCZeN0T7VBwdQz0NID LvQGUlLtNxLSIHUZkeWK9JLS1sltA5TH6ThHNqSMFnHHZwcLMhOIk5L41jmZIlQRbtUC9WBXP+Lm+Pg 4DTQCoPIRkDTMnUrIuLGZWSyLvP1SvA1VCz8XwB2DqMF09lSzxurAyUDzgYJ4RZT8fZTZcRJOHNM5SgH DzfG9uauGjVdRjVIQHKmRjT12rnKGgBMSvLFYiHAUv Os8PXYVtO9EynfIgtSxxooRxHKPsKWZMCE8HVSifnwLqgUKkqRaaWP87aZmqBN3XPq6VYlOsOO0mjl2L bTJwJz7DAWVwWE7JGHCoOXTwVHNnLZR4NPPmUhHuNClnOJLlGAJiLVY4NVTbZZAdYA3ZUsOvUHFuHZKl OrKpCSJpRNNpbr9EYEMbXID2WVh2KCPoQTPnOMEkWI bpCJJzXOIbIQY6BUInQMFcIF2BIlZxSJGkHRQoUjUsCCIhIBDywm1JBSMtDUEfMFZ7EMWpBYSfGVZvEG uhBFVfVVD0RoGdLCXrFVOtWT0CFiMxKRBrHMe1ZeyfXYBtWEVome7AWBVkVIBuEDp1YWNkJYSbXKNaCY chRSUcCAJqNRKmTHQmUTZfQT7UPaQlJCZhKNJ7IYiy XXTgLOCygr5GKEMvVGFnPfziZwPwYUIqKPVpXGciDQBwSBF7TEm4WZShYLWiTM7MRvRvNYHtXUX4PBCt ERDhKFUroc3NQGTyXIMoYPp5ERYiIBFaRPKrQAvhFYWvHEW9LWD4KEQgBDEjUQ8DCzLuMOAnCTXoBPBh KIKqEVLotv1ERXLhOCChCgG4NRQnYPOnFGVmAChqUY GcZDB3CbSaWYCmMLGuJH2MFiQjCPSoHSu9NWioJVXrOSAttw0IAAUuBMCnHQkzGDQsHGHuECPwSOwuBI QrEOJ7DyW8SRNcTSJjHS5OMoQiZYVwTkl0NUBrKNGrZEWaiv8XVOQqVIDfPWluXoPnXIXiSZEaLAwcJJ DiLRB6LLE2TRIbXYEhTI3PDsKxDGOtNjV2VRGfPRXn ZLYaty1EOGDnWWEpRMy1PKGwDWRuDGGlWHbhUSMwPTMfGHN2ZYYxZSXiNY6GRrGsCAJzUwN4YUTnAYXl OYPkxk3FWOSqTRE9EiKaXQIwQXJbWDIfGDlfLKHxJvrxDSZ1GUWlPYIhFT0NXvZcIDNnVXLmQjPoLMLw AVCayp7ZKNRuNIL5XHW7PeZvRDHfAOOnXQsdCNKeZu o9KeTaTKSsVUWrTH6AEpOvBJqdIVGBRuz8NMmjX7s8EPJcFV7XO0Cep3KdJrSnXCWJQYegGI9prjOiAJ QcKr9XI3iIMmbaYgDdAgl0A9G7JDo1BUf1LPKiMVZoVFApThQ3IlUzRQ1rUDY7JjJqJDu1Sgd4SBR7Aw t8LmE7UTWxHVRuQTHeDGX2GqXxFL4KUi2WQwK2ENA5mAMlDc4RUgh1ZAd5BGffPNZJIj1R Procedure Social History Code Duration Value Status Description Data Source(s ) Smoking 10/21/2020 01:21:21 PM EST Never smoked tobacco (findi ng) completed Never smoked tobacco (finding) ZOIE (Remi Rodarte MD [facility]) Smoking 12/04/2019 11:26:09 AM EST Never smoked tobacco (findi ng) completed Never smoked tobacco (finding) ZOIE (Remi Rodarte MD [facility]) Vital Signs ID Date Data Source UNK Name Value Range Interpretation Code Description Data Source(s) Body weight 90.720 kg 90.720 kg [facility] ([facility]) [place] body weight 140 [lb_av] 140 [facility] Body mass index (BMI) [Ratio] 30.4 kg/m2 30.4 k g/m2 [facility] ([facility]) Body weight 200.00 [lb_av] 200.00 [lb_av] [facility] Body height 68 [in_i] 68 [in_i] [facility] ([facility]) 5'8" Diastolic blood pressure 87 mm[Hg] 87 mm[Hg] [facility] ([facility]) Systolic blood pressure 118 mm[Hg] 118 mm[Hg] [facility] ([facility])
[2020-12-30] MEDS ORDERED: POVIDONE-IODINE 5% OPHTH PREP SOL 30ML As Ordered ONE (06:18)
[2020-12-30] MEDS ORDERED: DUOVISC (0.50ML VISCOAT/0.55ML PROVISC) OPHTH KIT As Ordered ONE (06:18)
[2020-12-30] MEDS ORDERED: CEFUROXIME 1MG/0.1ML INTRACAMERAL INJ As Ordered ONE (06:19)
[2020-12-30] MEDS ORDERED: BSS IRR 500ML/OMIDRIA 4ML IRR BAG (OR ONLY) As Ordered ONE (06:19)
[2020-12-30] MEDS ORDERED: OFLOXACIN 0.3 % (OCUFLOX) OPTH SOL 5ML OD ONE (07:00)
[2020-12-30] MEDS ORDERED: PHENYLEPHRINE 2.5% OPHTH SOL 2ML OD ONE (07:00)
[2020-12-30] MEDS ORDERED: TROPICAMIDE 1% OPHTH SOLN 2ML OD ONE (07:00)
[2020-12-30] MEDS ORDERED: PROPARACAINE 0.5% OPHTH SOL 15ML OD ONE (07:00)
[2020-12-30] MEDS ORDERED: MIDAZOLAM INJ 2MG/2ML VIAL (J2250 PER 1MG) As Ordered ONE (07:09)
[2020-12-30] MEDS ORDERED: fentaNYL 100 MCG/2 ML INJECTION (J3010) As Ordered ONE (07:09)
[2020-12-30 08:14] VITALS: BP 113/62
--- NOTE | 2020-12-31 09:56 | RO ---
OPERATIVE NOTE DATE OF OPERATION: 12/30/2020 PREOPERATIVE DIAGNOSIS: 1. Visually significant nuclear sclerotic cataract, right eye. POSTOPERATIVE DIAGNOSIS: 1. Visually significant nuclear sclerotic cataract, right eye. PROCEDURE: 1. Cataract extraction with use of phacoemulsification, and placement of intraocular lens, AU00T0, 18.5 D, right eye. SURGEON: Alexander Katz DO ANESTHESIA: Local (Omidria with MAC) COMPLICATIONS: None POSTOPERATIVE CONDITION: Stable INDICATIONS FOR SURGERY: 1. Blurred vision affecting patient's activities of daily living. DESCRIPTION OF PROCEDURE: The patient was seen in the preoperative area and properly identified. The correct operative eye was identified and marked. The patient received topical anesthetic, antibiotics, and topical dilating drops. The patient was then transferred to the operating room. The correct side was re-identified and a time-out was performed. The eye was prepped and draped in a sterile fashion. The eyelids were isolated with Tegaderm tape and the lids were held open with an adjustable speculum. A 1.0mm paracentesis incision was made. Omidria was then injected into the anterior chamber. Viscoelastic was then injected into the anterior chamber through the paracentesis. Using a 2.4mm sharp-tipped keratome, the anterior chamber was entered via a temporal clear cornea incision. A continuous curvilinear capsulorrhexis was created with Utrata forceps. Hydrodissection was performed with BSS on a blunt cannula until the nucleus was able to rotate freely. The crystalline lens was phacoemulsified and aspirated. Irrigation/aspiration was used to remove the cortical material Cohesive viscoelastic was placed into the capsular bag to deepen it. The implant was placed into the capsular bag and allowed to unfold. Placement was confirmed by visualizing the anterior capsulorrhexis. Irrigation/aspiration was used to remove the viscoelastic. The clear corneal incision was hydrated with BSS on a blunt cannula. The lens was well positioned. Intracameral antibiotic was injected into the anterior chamber. The incisions were then tested for leaks and found to be negative. The eye was then palpated for appropriate pressure and adjusted accordingly with BSS. The eyelid speculum was then carefully removed. A shield was placed over the eye. The patient tolerated the procedure well and was discharge to the recovery unit in a stable condition.
== END 2020-12-30 08:30 | disposition home or self-care (01) ==
LOC: M SDC 06:11
PROVIDERS: ATTEND Ophthalmology
DX: H25.11 Age-related nuclear cataract, right eye (principal); I10 Essential (primary) hypertension; D64.9 Anemia, unspecified; E11.9 Type 2 diabetes mellitus without complications; E89.0 Postprocedural hypothyroidism; N17.9 Acute kidney failure, unspecified; Z79.4 Long term (current) use of insulin; Z79.890 Hormone replacement therapy; Z79.899 Other long term (current) drug therapy; Z85.850 Personal history of malignant neoplasm of thyroid; Z90.710 Acquired absence of both cervix and uterus; Z96.612 Presence of left artificial shoulder joint; Z99.2 Dependence on renal dialysis
CPT/HCPCS: 36415; 66984; 84132; J1097; J2250; J3010

== ENCOUNTER → 2021-02-02 | Outpatient (CLI) | payer BC, OTHER ==
--- NOTE | 2021-02-02 14:33 | REP ---
INDICATION: ESRD COMPARISON: None. TECHNIQUE: Real time compression and duplex Doppler evaluation of the Bilateral upper extremity deep venous system is performed. FINDINGS: The Bilateral subclavian, jugular, axillary, brachial, basilic and cephalic veins are fully compressible where accessible with transducer pressure, and demonstrate no intraluminal thrombus and normal venous waveforms. There is no evidence of deep venous thrombosis. Left subclavian hemodialysis catheter is present. Chronic thrombus is suspected in the left median cubital vein. Right: Basilic vein size (mm)/ Cephalic vein size (mm) Upper humerus: 4/not seen Lower humerus: 4/not seen Upper forearm: 2/2 Lower forearm/wrist: 2/2 Median cubital:4 Right arterial structures: Peak systolic velocity (cm/s)/waveform/size (mm) Axillary: 77/triphasic/5 Brachial: 71/triphasic/4 Radial: 38/triphasic/3 Ulnar:29/triphasic/1 Left: Basilic vein size (mm)/ Cephalic vein size (mm) Upper humerus: 3/1 Lower humerus:2/1 Upper forearm: 1/not seen Lower forearm/wrist:1/not seen Median cubital:Suspect chronic thrombus. Left arterial structures: Peak systolic velocity (cm/s)/waveform/size (mm) Axillary: 66/triphasic/5 Brachial: 73/triphasic/4 Radial: 45/triphasic/2 Ulnar: 3.3/monophasic/1 IMPRESSION: No evidence of deep venous thrombosis of the Bilateral upper extremity deep vein system. Arterial and venous sizes are given above. <Electronically signed by Gregor Gonzalez > 02/02/21 [id number]
== END ==
LOC: M RAD 12:19
PROVIDERS: ATTEND Physician Assistant
DX: Z01.818 Encounter for other preprocedural examination (principal); N18.6 End stage renal disease

== ENCOUNTER → 2021-02-07 | Outpatient (REF) | payer OTHER ==
[2021-02-07 18:55] LABS: CREATININE, SERUM 2.4 MG/DL (0.6-1.0)
[2021-02-07 18:57] LABS: CREATININE CLEARANCE, URINE 18.3 ML/MIN (75-115); CREATININE, URINE 21.2 MG/DL
== END ==
LOC: M LAB REF 17:14
PROVIDERS: ATTEND Internal Medicine Nephrology
DX: N17.9 Acute kidney failure, unspecified (principal); I12.9 Hypertensive chronic kidney disease with stage 1 through stage 4 chronic kidney disease, or unspecified chronic kidney disease; E87.2 Acidosis

== ENCOUNTER → 2021-03-03 | Outpatient (REF) | payer OTHER ==
[2021-03-03 18:22] LABS: PERCENT SATURATION 36.4 % (13.2-45.0)
== END ==
LOC: M LAB REF 17:01
PROVIDERS: ATTEND Internal Medicine Nephrology
DX: D64.9 Anemia, unspecified (principal)

== ENCOUNTER → 2021-03-14 | Outpatient (CLI) | payer BC, OTHER ==
[~2021-03-14] MED LIST changes: +LIDOCAINE W/EPINEPHRINE 1% 20ML VIAL As Ordered ONE
[2021-03-14 09:30] VITALS: BP 123/78
--- NOTE | 2021-03-14 09:48 | ROOPDOC ---
[facility] Report Of Operation Report of Operation DATE OF PROCEDURE: 03/14/21 PREPROCEDURE DIAGNOSES: Improved renal function, no longer requiring PermCath for dialysis POSTPROCEDURE DIAGNOSES: Same PROCEDURE: Removal left IJ PermCath SURGEON: Nuria Dawson MD ANESTHESIA: Local anesthesia 4cc lidocaine INDICATION FOR PROCEDURE: This a very pleasant 50-year-old patient who had severe renal dysfunction that has now recovered and no longer requires dialysis or a PermCath for dialysis access. Risks benefits and alternatives to PermCath removal were explained to the patient she is agreeable to proceed. Informed consent was obtained. REPORT OF OPERATION: The patient's left neck and chest including the PermCath were prepped and draped in a sterile fashion. A timeout was performed. Local anesthesia was administered around the exit site of the catheter on the left chest. Sutures were removed. The dissection was used to loosen the cuff from the subcutaneous tissue. Pressure was held over the jugular access site and the catheter was removed. Pressure was held for 10 minutes for good hemostasis and sterile dressings were applied. The patient tolerated the procedure well. She was monitored for 30 minutes postprocedure to make sure she did not have any bleeding or hematoma from the left neck. ESTIMATED BLOOD LOSS: Approximately 1 mL. COMPLICATIONS: None. PLAN: Okay to resume home diet and medications. Keep head of bed elevated today to minimize pressure in the jugular vein. Okay to remove dressing and shower tomorrow, then replace with dry dressing or leave open to air if no drainage present. We appreciate the opportunity to participate in the care of this patient. NURIA DAWSON MD March 14, 2021 09:48
== END ==
LOC: M IRPRO 07:40
PROVIDERS: ATTEND Surgery Vascular Surgery
DX: Z09 Encounter for follow-up examination after completed treatment for conditions other than malignant neoplasm (principal); N17.9 Acute kidney failure, unspecified

== ENCOUNTER → 2021-06-17 | Outpatient (REF) | payer OTHER, BC ==
[~2021-06-17] MED LIST changes: -LIDOCAINE W/EPINEPHRINE 1% 20ML VIAL As Ordered ONE
== END ==
LOC: M LAB REF 13:32
PROVIDERS: ATTEND Internal Medicine Nephrology
DX: N18.4 Chronic kidney disease, stage 4 (severe) (principal)

== ENCOUNTER → 2021-07-15 | Outpatient (CLI) | payer BC, OTHER ==
[~2021-07-15] MED LIST changes: +LIDOCAINE 1% MDV 20ML VIAL As Ordered ONE; +methylPREDNISolone SUSP 40MG/ML 1ML VIAL (DEPO MEDROL) As Ordered ONE
--- NOTE | 2021-07-15 17:03 | REP ---
INDICATION: PERONEAL TENDINITIS. COMPARISON: None. TECHNIQUE: The procedure was performed under the direct supervision of Dr. Gonzalez. The risks and benefits of the procedure were explained to the patient and informed consent was obtained. The right peroneal tendon sheath was localized using ultrasound guidance. The skin was prepped and draped in a sterile fashion. 1 mL of 1% lidocaine was used as a local anesthetic. Using ultrasound guidance a 25 gauge needle was inserted and advanced into the tendon sheath. 3 mL of a solution containing 2 mL of 1% lidocaine and 1 mL of Depo-Medrol 40 mg was injected. The needle was then removed. The patient tolerated the procedure well and there were no immediate complications. FINDINGS: None IMPRESSION: Ultrasound-guided right peroneal tendon sheath injection. <Electronically signed by Carlos Ford > 07/15/21 1620 <Electronically signed by Gregor Gonzalez > 07/15/21 [id number]
== END ==
LOC: M IRPRO 13:13
PROVIDERS: ATTEND Physician Assistant Surgical
DX: M76.71 Peroneal tendinitis, right leg (principal)
CPT/HCPCS: 20550; 76942; J1030

== ENCOUNTER → 2021-09-01 | Outpatient (REF) | payer OTHER ==
[~2021-09-01] MED LIST changes: -LIDOCAINE 1% MDV 20ML VIAL As Ordered ONE; -methylPREDNISolone SUSP 40MG/ML 1ML VIAL (DEPO MEDROL) As Ordered ONE
== END ==
LOC: M LAB REF 13:24
PROVIDERS: ATTEND Internal Medicine Nephrology
DX: N18.32 Chronic kidney disease, stage 3b (principal)

== ENCOUNTER → 2022-09-27 | Outpatient (CLI) | payer BC, OTHER ==
[~2022-09-27] MED LIST changes: -D31000TA2 PO; +LOSA50TA28 PO; -LOSA50TA88 PO; -MONT10TA10 PO; +MONT10TA97 PO; +VITA100093 PO
== END ==
LOC: M RAD 08:57
PROVIDERS: ATTEND Family Medicine
DX: R91.8 Other nonspecific abnormal finding of lung field (principal)

== ENCOUNTER → 2023-03-05 | Outpatient (CLI) | payer BC, OTHER ==
[~2023-03-05] MED LIST changes: +POTA-298 PO; -POTA1TAB14 PO
== END ==
LOC: M RAD 13:52
PROVIDERS: ATTEND Nurse Practitioner Family
DX: N17.9 Acute kidney failure, unspecified (principal)

== ENCOUNTER → 2023-04-26 | Outpatient (CLI) | payer BC, OTHER | LOC: M PLAIMG 10:41 | PROVIDERS: ATTEND Internal Medicine Critical Care Medicine | DX: J47.9 Bronchiectasis, uncomplicated (principal) ==

== ENCOUNTER → 2023-05-17 | Outpatient (CLI) | payer BC, OTHER | LOC: M RAD 09:10 | PROVIDERS: ATTEND Nurse Practitioner Family | DX: N18.32 Chronic kidney disease, stage 3b (principal); I12.9 Hypertensive chronic kidney disease with stage 1 through stage 4 chronic kidney disease, or unspecified chronic kidney disease ==

== ENCOUNTER → 2023-09-12 | Outpatient (REF) | LOC: M PLAIMG 13:43 | PROVIDERS: ATTEND Internal Medicine | DX: R52 Pain, unspecified (principal) ==

== ENCOUNTER → 2024-03-28 | Outpatient (CLI) | payer BC, OTHER | LOC: M WHC 09:27 | PROVIDERS: ATTEND Family Medicine | DX: Z12.31 Encounter for screening mammogram for malignant neoplasm of breast (principal) ==

== ENCOUNTER → 2024-06-10 | Outpatient (CLI) | payer MEDICARE, BC, OTHER | LOC: M PLAIMG 09:08 | PROVIDERS: ATTEND Internal Medicine Critical Care Medicine | DX: R91.8 Other nonspecific abnormal finding of lung field (principal) ==

== ENCOUNTER → 2024-08-26 | Outpatient (CLI) | payer MEDICARE, BC, OTHER | LOC: M PLAIMG 08:19 | PROVIDERS: ATTEND Internal Medicine | DX: Q45.3 Other congenital malformations of pancreas and pancreatic duct (principal) ==

== ENCOUNTER 2024-11-10 07:53 | Day surgery (SDC) | payer MEDICARE, BC, OTHER ==
[~2024-11-10] VITALS: Ht 172.7 cm; Wt 76.2 kg
[~2024-11-10 07:53] MED LIST changes: +ATOR1TAB19 PO; +CALCCAP4 PO; +D3 U1000 PO; +FAMO40TA3 PO; +JARD1TAB PO; +LR 1,000 ML IV SCH; +MAGN400T2 PO; +METO1TAB32 PO; +SEMA1PEN2 SC; +SYNT137T7 PO; +THERTAB52 PO
[2024-11-10] MEDS ORDERED: MIDAZOLAM INJ 2MG/2ML VIAL As Ordered ONE (08:33)
[2024-11-10] MEDS ORDERED: fentaNYL 100 MCG/2 ML INJECTION As Ordered ONE (08:33)
[2024-11-10] MEDS: TETRACAINE 0.5% OPHTH SOLN 4ML OS SCH (08:42)
[2024-11-10] MEDS: CYCLOPENTOLATE 1% OPHTH SOLN 2ML BTL OS SCH (08:42)
[2024-11-10] MEDS: PHENYLEPHRINE 2.5% OPHTH SOL 2ML OS SCH (08:42)
[2024-11-10] MEDS: FLURBIPROFEN 0.03% OPHTH SOLN 2.5 ML OS SCH (08:42)
[2024-11-10] MEDS: LIDOCAINE 1% SDV 5ML VIAL As Ordered ONE (09:57)
[2024-11-10] MEDS: CEFUROXIME 1MG/0.1ML INTRACAMERAL INJ As Ordered ONE (10:04)
[2024-11-10 10:15] VITALS: BP 122/80; TEMP 97.6; O2SAT 98
== END 2024-11-10 10:31 | disposition home or self-care (01) ==
LOC: M SDC 07:53
PROVIDERS: ATTEND Ophthalmology
DX: H25.9 Unspecified age-related cataract (principal); E11.9 Type 2 diabetes mellitus without complications; Z79.899 Other long term (current) drug therapy
CPT/HCPCS: 66984; J0697; J2250; J3010; V2632

== ENCOUNTER → 2024-12-15 | Outpatient (CLI) | payer MEDICARE, BC, OTHER ==
[~2024-12-15] MED LIST changes: -LR 1,000 ML IV SCH
== END ==
LOC: M WHC 13:07
PROVIDERS: ATTEND Internal Medicine
DX: M81.0 Age-related osteoporosis without current pathological fracture (principal)

== ENCOUNTER → 2024-12-22 | Outpatient (REF) | payer MEDICARE, OTHER | LOC: M LAB REF 17:10 | PROVIDERS: ATTEND Internal Medicine Critical Care Medicine | DX: J47.9 Bronchiectasis, uncomplicated (principal) ==

== ENCOUNTER → 2025-02-12 | Outpatient (REF) | payer MEDICARE, OTHER | LOC: M LAB REF 16:52 | PROVIDERS: ATTEND Internal Medicine Critical Care Medicine | DX: J47.9 Bronchiectasis, uncomplicated (principal) ==

== ENCOUNTER 2025-05-05 11:49 | Emergency (ER) | payer MEDICARE, OTHER, BC ==
[~2025-05-05] VITALS: Ht 170.2 cm; Wt 67.2 kg
[2025-05-05] MEDS: MORPHINE 2 MG/ML 1 ML VIAL IV ONE (14:53)
[2025-05-05 14:58] LABS: BASO % 0.4 % (0.0-1.0); EOS # 0.2 10^3/uL (0.0-0.5); EOS % 1.8 % (0.0-3.0); HEMATOCRIT 39.2 % (36.0-47.0); HEMOGLOBIN 13.1 g/dl (12.0-15.5); LYMPH # 1.8 10^3/uL (1.5-5.0); LYMPH % 21.4 % (24.0-44.0); MEAN CORPUSCULAR HGB CONC 33.4 g/dl (32.0-36.5); MEAN CORPUSCULAR VOLUME 92.7 fl (80.0-96.0); MONO # 0.7 10^3/uL (0.0-0.8); MONO % 8.2 % (2.0-8.0); NEUTROPHILS # 5.8 10^3/uL (1.5-8.5); PLATELET COUNT, AUTOMATED 240 10^3/uL (150-450); RED BLOOD COUNT 4.23 10^6/uL (4.00-5.40); WHITE BLOOD COUNT 8.6 10^3/uL (4.0-10.0)
[2025-05-05 15:08] LABS: ERYTHROCYTE SEDIMENTATION RATE 47 mm/hr (0-30)
[2025-05-05 16:16] LABS: CALCIUM LEVEL 9.7 MG/DL (8.5-10.1); CREATININE FOR GFR 1.25 MG/DL (0.55-1.30); GLOMERULAR FILTRATION RATE 50.6 (>51); POTASSIUM SERUM 4.4 MMOL/L (3.5-5.1)
[2025-05-05 16:18] LABS: URIC ACID 4.4 MG/DL (3.1-7.8)
[2025-05-05 16:30] VITALS: BP 110/67; TEMP 98.6; O2SAT 96
[2025-05-05] MEDS ORDERED: PRED20TA PO (16:47)
[2025-05-05] MEDS ORDERED: CEPH500C PO (16:47)
== END 2025-05-05 17:01 | disposition home or self-care (01) ==
LOC: M ED 11:49
DX: M10.072 Idiopathic gout, left ankle and foot (principal); E11.9 Type 2 diabetes mellitus without complications; J45.909 Unspecified asthma, uncomplicated; N18.30 Chronic kidney disease, stage 3 unspecified; K21.9 Gastro-esophageal reflux disease without esophagitis; Z85.850 Personal history of malignant neoplasm of thyroid; Z79.899 Other long term (current) drug therapy; Z79.4 Long term (current) use of insulin; Z79.52 Long term (current) use of systemic steroids